=== PATIENT | male | born 1935 | race Caucasian/White ===

== ENCOUNTER → 2018-06-28 08:38 | Outpatient (CLI) | payer MEDICARE, SELFPAY ==
[2018-06-28 10:15] LABS: Alanine Aminotransferase 34 IU/L (21-72); Albumin 4.1 g/dL (3.5-5.0); Albumin Globulin Ratio 1.1 (1.0-2.8); Alkaline Phosphatase 99 U/L (38-126); Aspartate Aminotransferase 45 IU/L (17-59); BUN Creatinine Ratio 17.8 (6-22); Bilirubin Total 0.7 mg/dL (0.2-1.3); Blood Urea Nitrogen 16 mg/dL (9-20); Calcium 9.3 mg/dL (8.4-10.2); Carbon Dioxide 27 mmol/L (22-32); Chloride 98 mmol/L (98-107); Cholesterol 116 mg/dL (140-199); Estimated Glomerular Filt Rate > 60.0 mL/min (>60); Globulin 3.8 g/dL (1.7-4.1); Glucose 92 mg/dL (80-110); HDL Cholesterol 51 mg/dL (40-60); HEMOLYSIS < 15 (0-50); LDL Cholesterol Calculated 50 mg/dL (<100); Potassium 4.8 mmol/L (3.4-5.1); Sodium 136 mmol/L (137-145); Total Protein 7.9 g/dL (6.3-8.2); Triglycerides 75 mg/dL (35-150)
== END ==
PROVIDERS: PCP Nurse Practitioner; Visit Provider Nurse Practitioner
DX: I25.119 Atherosclerotic heart disease of native coronary artery with unspecified angina pectoris (principal); I25.5 Ischemic cardiomyopathy; E78.5 Hyperlipidemia, unspecified
CPT/HCPCS: 36415; 80053; 80061

== ENCOUNTER → 2018-07-02 07:51 | Outpatient (CLI) | payer MEDICARE, SELFPAY ==
--- NOTE | 2018-07-02 | DI.ECHO.S_ITS ---
[facility]---------+ [facility] +---------+ : : 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 -The ejection fraction is estimated to be 35-40%. -The right ventricle grossly appears normal in size with probable normal systolic function. -Pulmonary artery pressures cannot be estimated because of the lack of a measurable TR jet velocity but the IVC suggests a CVP of around 3 mmHg. 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 Procedure: A two-dimensional transthoracic echocardiogram with color flow and Doppler was performed. The study quality was technically adequate. Comparison is made with the echocardiogram of 2-28-14. The patient was in normal sinus rhythm during the exam. Left Ventricle: The left ventricle is normal in size. There is normal left ventricular wall thickness. The ejection fraction is estimated to be 35-40%. There is mid anteroseptal wall hypokinesis. There is apical septal wall akinesis. There is apical akinesis. There is basal inferior wall akinesis. There is mid anterior wall severe hypokinesis. There is apical anterior wall severe hypokinesis. Diastolic parameters suggest a relaxation abnormality of the left ventricle, consistent with probable normal filling pressures. Right Ventricle: The right ventricle grossly appears normal in size with probable normal systolic function. There is a pacemaker lead in the right ventricle. Atria: The left atrium is borderline dilated. Right atrial size is normal. There is a catheter/pacemaker lead seen in the right atrium. There is no Doppler evidence for an interatrial shunt. Mitral Valve: The mitral valve is grossly normal. There is mild mitral regurgitation. Aortic Valve: The aortic valve opens well. The aortic valve is trileaflet. There is discrete nodular thickening of the non- coronary cusp. There is no aortic valve stenosis. No aortic regurgitation is present. Tricuspid Valve: The tricuspid valve is normal in structure and function. There is a trace or physiologic amount of tricuspid regurgitation. Pulmonary artery pressures cannot be estimated because of the lack of a measurable TR jet velocity but the IVC suggests a CVP of around 3 mmHg. Pulmonic Valve: The pulmonic valve is not well seen, but is grossly normal. There is no pulmonic valvular regurgitation. Great Vessels: The aortic root is normal size. The ascending aorta is at the upper limits of normal in size. The aortic arch is normal in size. The IVC is of normal diameter and collapses greater than 50% with a sniff. This suggests a low right atrial pressure of 3 mm Hg. Pericardium/ Pleura There is no pericardial effusion. There is no pleural effusion. MMode/2D Measurements & Calculations LVIDd: 4.8 cm Ao root diam: 3.0 cm LVIDs: 4.4 cm Aortic Jxn: 2.4 cm FS: 7.9 % asc Aorta Diam: 3.5 cm IVSd: 0.73 cm Ao Arch Diam (Prox Trans): 2.7 cm LVPWd: 0.61 cm LV reed. diameter/BSA (cm/m^2): 2.5 LV sys. diameter/BSA (cm/m^2): 2.3 LA dimension: 3.7 cm RA long axis: 4.3 cm LA A2 area: 22.4 cm2 RA area: 17.1 cm2 LA A4 area: 22.1 cm2 RA vol: 57.0 ml LA length (vol): 5.6 cm RA : 29.7 ml/m2 LA vol: 75.4 ml IVC diam: 1.8 cm LA vol index: 39.3 ml/m2 RVDd major: 5.9 cm RVD1 (basal): 3.4 cm RVD2 (mid): 3.0 cm Doppler Measurements & Calculations Ao V2 max: 152.2 cm/sec MV E max pablo: 70.6 cm/sec Ao V2 mean: 98.0 cm/sec MV A max pablo: 99.7 cm/sec Ao max P.3 mmHg MV E/A: 0.71 Ao mean P.5 mmHg Med Peak E' Pablo: 6.6 cm/sec Ao V2 VTI: 32.1 cm E/E' med: 10.6 Lat Peak E' Pablo: 6.8 cm/sec E/E' lat: 10.3 E/e' average: 10.5 MV dec time: 0.20 sec MV P1/2t: 56.5 msec TR max pablo: 246.5 cm/sec MV P1/2t max pablo: 69.3 cm/sec TR max P.3 mmHg MVA(P1/2t): 3.9 cm2 PA V2 max: 95.6 cm/sec PA V2 mean: 54.5 cm/sec PA mean P.5 mmHg PA Accel Time: 0.08 sec Electronically signed by: Blas Stephenson M.D. on Reading Physician:07/02/2018 09:26 PM
== END ==
PROVIDERS: PCP Nurse Practitioner; Visit Provider Nurse Practitioner
DX: I34.0 Nonrheumatic mitral (valve) insufficiency (principal); I25.5 Ischemic cardiomyopathy; I50.9 Heart failure, unspecified; Z95.0 Presence of cardiac pacemaker
CPT/HCPCS: 93306

== ENCOUNTER → 2018-07-30 07:43 | Outpatient (CLI) | payer MEDICARE, SELFPAY ==
--- NOTE | 2018-07-30 | DI.NM.S_ITS ---
PROCEDURE: NM TYE PERF SPECT REST & STR Rest and exercise myocardial perfusion SPECT with gated imaging and ejection fraction RADIOPHARMACEUTICAL: 25.4 mCi Tc-99m sestamibi IV at rest and 26.2 mCi Tc-99m sestamibi IV at peak exercise. A 0-aht-yvdebtze was performed. INDICATIONS: DYSPENA ON EXERTION TECHNIQUE: Radiopharmaceutical was injected at peak stress test, and also at rest. SPECT images were obtained. SPECT myocardial perfusion images were displayed in short axis, horizontal long axis, and vertical long axis views. Gated images were reviewed using Mochila software. COMPARISON: None. CARDIAC STRESS: A standard Marshal treadmill exercise tolerance test was performed by the patient under the supervision of an attending staff. The patient exercised for 5 minutes and 39seconds; functional aerobic impairment (GINA) is 0 %. Hemodynamic data: There is blunted blood pressure and normal heart rate response to exercise stress. Patient achieved 93% of maximum predicted heart rate at peak exercise. Symptoms: Patient denied chest pain during exercise. EKG: No diagnostic EKG changes of ischemia; PACs and PVCs were reported. FINDINGS: Raw data: There is good myocardial labeling by radiotracer. No significant motion artifacts. Rggv-gw-psuis ratio is 0.5 (normal is less than 0.38 for sestamibi tracer, and less than 0.50 for thallium tracer). Left ventricle function: Gated images demonstrate akinesis of the mid to apical wall. No transient ischemic dilation; TID is 0.9 (normal less than 1.3). The left ventricle resting end-diastolic volume is 202 mL. Left ventricle stress ejection fraction is 47% ; normal values are above 45%. Myocardial perfusion: There is a large, severe fixed defect from the mid to apical anterior wall, also involving the entire apex and inferoapical wall, both at rest and with stress, consistent with prior infarct in a large, wrap-around LAD territory. There is a questionable, small, moderate basal lateral wall defect which is seen on both rest and stress images but the severity as well as reversibility can not be determined given there is a large bowel loop just next to the defect. The defect itself might be due to the adjacent bowel activity. IMPRESSION: 1)Abnormal perfusion study with a large scar in LAD territory with mild izabella-infarct ischemia, unchanged from the prior study on 07/01/2014. 2)Questionable defect in basal lateral wall which can not be further evaluated due to adjacent bowel loop interfering activity. 3)Average exercise tolerance with blunted blood pressure response. The activity tolerance has decreased compared to 4 years ago. 4)Dilated left ventricle with rest end-diastolic volume of 202 ml which has increased compared to 154 ml on last study. Mildly reduced LVEF of 47% which is not significantly changed from last study. Dictated by: Blas Stephenson M.D. on 07/31/2018 at 14:07 Approved by: Blas Stephenson M.D. on 07/31/2018 at 14:40
--- NOTE | 2018-07-30 09:36 | PM.TREADMILL ---
Cardiac Stress Test Report Referral & Results Date Patient Seen: 07/30/18 Requesting provider: Roney Slaughter Indication: Cardiomyopathy, pacemaker Procedure Note: Today following both written and verbal informed consent the patient was exercised according to a standard Marshal protocol patient went for a total of 5 minutes 39 seconds achieving a maximum heart rate of 129 maximum systolic blood pressure of 145. This is approximately 7.0 METS. Exercise was terminated at this point because of targets were met. Patient was also given Cardiolite through a previously started Hep-Lock IV by the nuclear medicine officer approximately 1 minute prior to the cessation of exercise. Patient had a blunted blood pressure response but normal heart rate response. Occasional PAC and PVCs were identified. patient with significant interventricular conduction delay. No ST-T segment changes identified Functional aerobic impairment rated 0 on the active scale Impression: No evidence of ischemia by ECG criteria Please see perfusion imaging report as well Please note: Actual ECG tracings can be found in the PACS system.
== END ==
PROVIDERS: PCP Nurse Practitioner; Visit Provider Nurse Practitioner
DX: R06.00 Dyspnea, unspecified (principal); R94.39 Abnormal result of other cardiovascular function study; I42.9 Cardiomyopathy, unspecified; Z95.0 Presence of cardiac pacemaker
CPT/HCPCS: 78452; 93016; 93017; 93018; A9502

== ENCOUNTER → 2018-09-11 15:04 | Outpatient (CLI) | payer MEDICARE, SELFPAY ==
[2018-09-11 16:41] LABS: Alanine Aminotransferase 37 IU/L (21-72); Albumin 4.3 g/dL (3.5-5.0); Albumin Globulin Ratio 1.2 (1.0-2.8); Alkaline Phosphatase 91 U/L (38-126); Aspartate Aminotransferase 48 IU/L (17-59); Bilirubin Total 0.4 mg/dL (0.2-1.3); Blood Urea Nitrogen 28 mg/dL (9-20); Calcium 9.3 mg/dL (8.4-10.2); Carbon Dioxide 25 mmol/L (22-32); Chloride 101 mmol/L (98-107); Cholesterol 103 mg/dL (140-199); Estimated Glomerular Filt Rate > 60.0 mL/min (>60); Globulin 3.7 g/dL (1.7-4.1); Glucose 95 mg/dL (80-110); HDL Cholesterol 50 mg/dL (40-60); HEMOLYSIS < 15 (0-50); LDL Cholesterol Calculated 38 mg/dL (<100); Magnesium 2.2 mg/dL (1.6-2.3); Potassium 4.5 mmol/L (3.4-5.1); Sodium 138 mmol/L (137-145); Triglycerides 74 mg/dL (35-150)
[2018-09-11 17:13] LABS: Thyroid Stimulating Hormone 1.79 uIU/mL (0.47-4.68)
== END ==
PROVIDERS: PCP Nurse Practitioner; Visit Provider Internal Medicine Cardiovascular Disease
DX: R06.02 Shortness of breath (principal); I25.5 Ischemic cardiomyopathy; E78.5 Hyperlipidemia, unspecified; I47.1 Supraventricular tachycardia
CPT/HCPCS: 36415; 80053; 80061; 83735; 84443

== ENCOUNTER → 2018-09-18 09:01 | Outpatient (CLI) | payer MEDICARE, SELFPAY ==
--- NOTE | 2018-09-18 | DI.US.S_ITS ---
PROCEDURE: US ABD AORTA ANEURYSM SCREEN INDICATIONS: HISTORY SMOKING TECHNIQUE: Real time scanning was performed of the aorta and iliac arteries, with image documentation. COMPARISON: None. FINDINGS: Aorta: Proximal aorta are obscured by shadowing bowel gas. Mid-aorta measures 2.0 cm. Distal aortic diameter is 2.0 cm. Iliac arteries: Right common iliac artery measures 1.0 cm. Left common iliac artery measures 1.1 cm. IMPRESSION: Proximal abdominal aorta obscured by shadowing bowel gas. Elsewhere, no aneurysm identified. Dictated by: Kenroy Castillo M.D. on 09/18/2018 at 9:30 Approved by: Kenroy Castillo M.D. on 09/18/2018 at 9:32
== END ==
PROVIDERS: PCP Nurse Practitioner; Visit Provider Internal Medicine Cardiovascular Disease
DX: I71.4 Abdominal aortic aneurysm, without rupture (principal); Z87.891 Personal history of nicotine dependence
CPT/HCPCS: 76706

== ENCOUNTER → 2018-09-21 16:58 | Outpatient (CLI) | payer MEDICARE, SELFPAY ==
--- NOTE | 2018-09-26 08:01 | PM.PFT.1 ---
Pulmonary Function Test Referral & Results Date Patient Seen: 09/21/18 Requesting provider: Elsa Park Results: The spirometry demonstrates an FVC of 3.39 L which is 70% of predicted. The FEV1 was measured at 1.84 L which is 60% of predicted. The FEV1/FVC ratio was 50 for which is 76% of predicted. Following the administration of bronchodilator there was a 10% improvement in FEV1 and a 41% improvement in FEF 25-75%. Lung volumes show an SVC of 3.93 L which is 84% of predicted. The diffusing capacity was measured at 15.40 which is 43% of predicted. No hemoglobin value was provided, so no correction for potential anemia could be made, if appropriate. The maximum voluntary ventilation was reduced Interpretation: This study demonstrates moderate obstructive lung disease based on reduction FEV1 and FEV1/FVC ratio. There is some evidence of limited benefit following bronchodilator administration based on 10% improvement in FEV1 and 40+% improvement in small airway flow based on improvement in FEF 25-75% There may also be mild restrictive lung disease present based on slight reduction in lung volumes There is a more significant reduction in diffusing capacity (unless patient is anemic) suggesting more significant disease at the capillary alveolar level
== END ==
PROVIDERS: PCP Nurse Practitioner; Visit Provider Internal Medicine Cardiovascular Disease
DX: R06.02 Shortness of breath (principal)
CPT/HCPCS: 94060; 94726; 94729

== ENCOUNTER → 2019-09-27 09:45 | Outpatient (CLI) | payer MEDICARE, SELFPAY ==
[2019-09-27 11:53] LABS: Alanine Aminotransferase 16 IU/L (<50); Alkaline Phosphatase 110 U/L (38-126); Aspartate Aminotransferase 45 IU/L (17-59); BUN Creatinine Ratio 21.7 (6-22); Bilirubin Total 0.8 mg/dL (0.2-1.3); Blood Urea Nitrogen 18 mg/dL (9-20); Calcium 9.1 mg/dL (8.4-10.2); Carbon Dioxide 27 mmol/L (22-32); Chloride 102 mmol/L (98-107); Cholesterol 95 mg/dL (140-199); Estimated Glomerular Filt Rate > 60.0 mL/min (>60); Glucose 96 mg/dL (80-110); HDL Cholesterol 38 mg/dL (40-60); HEMOLYSIS < 15 (0-50); LDL Cholesterol Calculated 46 mg/dL (<100); Magnesium 2.2 mg/dL (1.6-2.3); Potassium 4.7 mmol/L (3.4-5.1); Sodium 137 mmol/L (137-145); Triglycerides 53 mg/dL (35-150)
[2019-09-27 12:23] LABS: Thyroid Stimulating Hormone 1.69 uIU/mL (0.47-4.68)
== END ==
PROVIDERS: PCP Nurse Practitioner; Referring Provider Internal Medicine Cardiovascular Disease; Visit Provider Internal Medicine Cardiovascular Disease
DX: I47.2 Ventricular tachycardia (principal); I25.5 Ischemic cardiomyopathy; Z95.5 Presence of coronary angioplasty implant and graft; I44.2 Atrioventricular block, complete; I48.0 Paroxysmal atrial fibrillation
CPT/HCPCS: 80053; 80061; 83735; 84443

== ENCOUNTER → 2020-08-25 16:08 | Outpatient (CLI) | payer MEDICARE, SELFPAY ==
[2020-08-25 19:54] LABS: Appearance Urine UA CLEAR; Bilirubin Urine UA NEGATIVE (NEGATIVE); Color Urine UA ORANGE; Glucose Urine UA NEGATIVE (Negative); Ketones Urine UA NEGATIVE (NEGATIVE); Leukocyte Esterase Urine UA 3+ (NEGATIVE); Nitrite Urine UA POSITIVE (Negative); Occult Blood Urine UA 1+ (Negative); Protein Urine UA NEGATIVE (Negative); Specific Gravity Urine UA 1.025 (1.000-1.035); Urobilinogen Urine UA 0.2 E.U./dL (0.2); pH Urine UA 5.5 (4.5-8.0)
[2020-08-25 20:18] LABS: Bacteria Urine Many (>30); Culture Indicated Urine Specimen Cultured; RBC Urine 10-30/HPF (0-5/HPF); WBC Urine 30-100/HPF (0-5/HPF)
== END ==
PROVIDERS: PCP Family Medicine; Visit Provider Family Medicine
DX: R31.9 Hematuria, unspecified (principal)
CPT/HCPCS: 81001; 87077; 87086; 87186

== ENCOUNTER → 2020-11-11 18:00 | Outpatient (CLI) | payer MEDICARE, SELFPAY | PROVIDERS: PCP Family Medicine; Referring Provider Physician Assistant; Visit Provider Physician Assistant | DX: R82.90 Unspecified abnormal findings in urine (principal) | CPT/HCPCS: 87077; 87086; 87186 ==

== ENCOUNTER → 2021-02-18 14:48 | Outpatient (CLI) | payer MEDICARE, SELFPAY | PROVIDERS: PCP Family Medicine; Visit Provider Nurse Practitioner | DX: R30.9 Painful micturition, unspecified (principal) | CPT/HCPCS: 87086 ==

== ENCOUNTER → 2021-04-05 16:26 | Outpatient (CLI) | payer MEDICARE, SELFPAY ==
--- NOTE | 2021-04-05 16:29 | DI.RAD.S_ITS ---
PROCEDURE: XR CHEST 2V INDICATIONS: chronic cough in a smoker TECHNIQUE: 2 views of the chest were acquired. COMPARISON: [facility], CR, XR CHEST 1 VIEW, 03/11/2019, 12:51. [facility], CR, XR CHEST 2 VIEWS, 03/12/2019, 7:14. FINDINGS: Surgical changes and devices: Stable positioning of left cardiac pacer. Lungs and pleura: Chronic interstitial opacities are present with basilar predominance similar to prior examination. No new focal lung consolidation.. No pleural effusions or pneumothorax. Mediastinum: Mediastinal contours are normal. Heart size is normal. Large non reducible hiatal hernia. Bones and chest wall: No suspicious bony abnormalities. Soft tissues appear unremarkable. IMPRESSION: 1. Diffuse bilateral interstitial opacities with basilar predominance similar prior examination suggesting interstitial fibrosis. Correlate clinically. Dictated by: Kip Singh RRA Interpreted: Tip Gautam MD on 04/05/2021 at 16:58 Transcribed by: HUYEN on 04/05/2021 at 16:59 Approved by: Tip Gautam M.D. on 04/05/2021 at 17:01
[2021-04-05 17:25] LABS: Appearance Urine UA CLEAR; Bilirubin Urine UA NEGATIVE (NEGATIVE); Color Urine UA YELLOW; Glucose Urine UA TRACE g/dL (Negative); Ketones Urine UA NEGATIVE (NEGATIVE); Leukocyte Esterase Urine UA TRACE (NEGATIVE); Nitrite Urine UA NEGATIVE (Negative); Occult Blood Urine UA NEGATIVE (Negative); Protein Urine UA TRACE (Negative); Urobilinogen Urine UA 0.2 E.U./dL (0.2); pH Urine UA 6.5 (4.5-8.0)
[2021-04-05 17:40] LABS: Add Manual Diff / Slide Review NO; Basophils Absolute Auto 100 /uL (0-100); Eosinophils Absolute Auto 900 /uL (0-450); Eosinophils Percent Auto 9.9 % (2-4); Hematocrit 44.4 % (41-53); Hemoglobin 15.2 g/dL (13.5-17.5); Lymphocytes Absolute Auto 1600 /uL (1100-4500); Lymphocytes Percent Auto 17.9 % (25-40); Mean Corpuscular HGB Conc 34.4 % (30-36); Mean Corpuscular Hemoglobin 33.3 PG (26-34); Mean Corpuscular Volume 97.1 fL (80-100); Monocytes Absolute Auto 600 /uL (0-900); Monocytes Percent Auto 6.8 % (3-14); Neutrophils Absolute Auto 5800 /uL (1500-7000); Neutrophils Percent Auto 64.4 % (50-75); Platelet Count 278 X10^3/uL (150-400); Red Blood Cell Count 4.57 X10^6/uL (4.5-5.9); Red Cell Distribution Width 13.5 % (11.6-14.8); White Blood Cell Count 9.1 X10^3/uL (4.5-11.0)
[2021-04-05 17:52] LABS: Hemoglobin A1C% w Est Avg Glu 5.6 % (4.0-6.0)
[2021-04-05 17:56] LABS: Alanine Aminotransferase 22 IU/L (<50); Alkaline Phosphatase 95 U/L (38-126); Aspartate Aminotransferase 46 IU/L (17-59); BUN Creatinine Ratio 19.6 (6-22); Bilirubin Total 0.3 mg/dL (0.2-1.3); Blood Urea Nitrogen 19 mg/dL (9-20); Calcium 9.4 mg/dL (8.4-10.2); Carbon Dioxide 28 mmol/L (22-32); Chloride 98 mmol/L (98-107); Cholesterol 96 mg/dL (140-199); Estimated Glomerular Filt Rate > 60.0 mL/min (>60); Globulin 4.2 g/dL (1.7-4.1); Glucose 103 mg/dL (80-110); HDL Cholesterol 46 mg/dL (40-60); HEMOLYSIS < 15 (0-50); LDL Cholesterol Calculated 37 mg/dL (<100); Potassium 5.3 mmol/L (3.4-5.1); Sodium 134 mmol/L (137-145); Total Protein 8.2 g/dL (6.3-8.2); Triglycerides 63 mg/dL (35-150)
[2021-04-05 18:11] LABS: Bacteria Urine Occasional (0-1); Culture Indicated Urine Specimen Cultured; RBC Urine 0-1/HPF (0-5/HPF); WBC Urine 1-5/HPF (0-5/HPF)
== END ==
PROVIDERS: PCP Family Medicine; Referring Provider Family Medicine; Visit Provider Family Medicine
DX: Z72.0 Tobacco use (principal); R73.9 Hyperglycemia, unspecified; I10 Essential (primary) hypertension; Z12.5 Encounter for screening for malignant neoplasm of prostate; E78.2 Mixed hyperlipidemia; M10.9 Gout, unspecified
CPT/HCPCS: 36415; 71046; 80053; 80061; 81001; 83036; 84550; 85025; 87086; G0103

== ENCOUNTER 2021-05-07 16:06 | Inpatient (IN) | payer OTHER, SELFPAY ==
--- NOTE | 2021-05-07 16:14 | DI.RAD.S_ITS ---
PROCEDURE: XR HIP W PEL IF DONE LT 2V INDICATIONS: glf TECHNIQUE: AP pelvis with lateral view(s) of the left hip(s). COMPARISON: None. FINDINGS: Bones: [id number] displaced intertrochanteric fracture of the left femur. The remaining visualized osseous structures appear maintained Soft tissues: Edema about the fracture site. IMPRESSION: [id number] displaced intertrochanteric fracture of the left femur. Dictated by: David Garza M.D. on 05/07/2021 at 17:07 Approved by: David Garza M.D. on 05/07/2021 at 17:08
[2021-05-07 16:21] VITALS: BP 115/56; PULSE 76; RESP 18; TEMP 36.4; O2SAT 99; BMI 20.7
[2021-05-07 17:48] VITALS: BP 101/64; PULSE 71; O2SAT 96
--- NOTE | 2021-05-07 18:00 | DI.RAD.S_ITS ---
PROCEDURE: XR FEMUR LT MIN 2V INDICATIONS: Pain TECHNIQUE: AP and lateral views of the femur were acquired. COMPARISON: [facility], CR, XR HIP W PEL IF DONE LT 2V, 05/07/2021, 16:25. FINDINGS: Bones: Comminuted trochanteric fracture of the left hip. No dislocation. No other fractures or dislocations. No suspicious bony lesions. Soft tissues: No suspicious soft tissue calcifications or masses. IMPRESSION: Comminuted trochanteric fracture of the left hip. Dictated by: eKdar Jarrett M.D. on 05/07/2021 at 19:39 Approved by: Kedar Jarrett M.D. on 05/07/2021 at 19:39
--- NOTE | 2021-05-07 18:24 | ED.FALL ---
HPI - Fall <Umer Ricketts PA-C - Last Filed: 05/15/21 12:14> General Chief Complaint: Fall Stated Complaint: GLF Lt. hip pain Time Seen by Provider: 05/07/21 16:48 Source: patient and EMS Mode of arrival: EMS History of Present Illness HPI Narrative: Patient is an 85-year-old male presenting to the emergency department the EMS today for an evaluation of left hip pain following a fall. Patient states that he tripped over a wire causing him to fall, denying hitting his head or losing consciousness as a result of the fall. He states he began to experience immediate left hip pain that is worsened with movement. No fever, chills, chest pain, cough, shortness of breath, nausea, vomiting, diarrhea, dysuria, hematuria, or any other concerning symptoms reported. No further concerns are voiced at this time. Discussed case with patient's son, All, who states that the patient does not have a power of estate planning attorney. Patient makes his own medical decisions. Patient's son can be reached at or . Related Data Home Medications Medication Instructions Recorded Confirmed carvedilol 3.125 mg tablet 3.125 mg PO BID 12/02/20 05/07/21 Previous Rx's Medication Instructions Recorded atorvastatin 40 mg tablet 40 mg PO BEDTIME #90 tab 04/05/21 clopidogrel 75 mg tablet 75 mg PO DAILY #90 tab 04/05/21 finasteride 5 mg tablet 5 mg PO DAILY #90 tab 04/05/21 nitroglycerin 0.4 mg sublingual 0.4 mg SUBLINGUAL PRN PRN #2 bot 04/05/21 tablet (Nitrostat) tamsulosin 0.4 mg capsule 0.4 mg PO BEDTIME #90 cap 04/05/21 acetaminophen 325 mg tablet 650 mg PO Q6HR PRN #60 tab 05/10/21 calcium carbonate 600 mg calcium 600 mg PO BID #60 tab 05/10/21 (1,500 mg) tablet (Calcium) cholecalciferol (vitamin D3) 25 1,000 unit PO DAILY #30 tab 05/10/21 mcg (1,000 unit) tablet enoxaparin 40 mg/0.4 mL 40 mg (0.4 mL) SUBCUT DAILY 28 01/10/22 subcutaneous syringe (Lovenox) Days #28 dose nicotine 21 mg/24 hr daily 1 patch TRANSDERMAL DAILY #28 ea 05/10/21 transdermal patch sennosides 8.6 mg tablet (senna) 17.2 mg PO BEDTIME #60 tab 05/10/21 Allergies Allergy/AdvReac Type Severity Reaction Status Date / Time Penicillins Allergy Unknown Verified 05/08/21 10:43 Review of Systems <Umer Ricketts PA-C - Last Filed: 05/15/21 12:14> Constitutional Constitutional: Denies chills, Denies fatigue, Denies fever(s), Denies frequent falls, Denies lethargy and Denies weakness Eyes Eyes: Denies loss of vision ENT Ears, Nose, Mouth, and Throat: Denies dizziness and Denies neck pain Cardiovascular Cardiovascular: Denies chest pain, Denies irregular heart rhythm, Denies lightheadedness, Denies palpitations, Denies dyspnea, Denies dyspnea on exertion and Denies orthopnea Respiratory Respiratory: Denies cough, Denies dyspnea, Denies dyspnea on exertion and Denies wheezing Gastrointestinal Gastrointestinal: Denies abdominal pain, Denies change in bowel habits, Denies diarrhea, Denies nausea and Denies vomiting Genitourinary Genitourinary: Denies hematuria, Denies flank pain, Denies urinary incontinence and Denies urinary urgency Musculoskeletal Musculoskeletal: Denies back pain, Reports arthralgias (Left hip), Denies muscle weakness, Denies neck pain, Denies numbness and Denies tingling Integumentary/Breasts Skin/Breast: Denies pruritus, Denies erythema, Denies rash and Denies wounds Neurologic Neurologic: Denies behavioral changes, Denies confusion, Denies dizziness, Denies frequent falls, Denies loss of vision, Denies numbness, Denies tingling and Denies weakness Psychiatric Psychiatric: Denies behavioral changes and Denies confusion Endocrine Endocrine: Denies fatigue and Denies palpitations Allergic/Immunologic Allergic/Immunologic: Denies wheezing Patient History <Umer Ricketts PA-C - Last Filed: 05/15/21 12:14> Medical History 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 Well-developed patient, in mild distress. Appears confused and does not answer questions directly. HEAD: Atraumatic. Normocephalic. EYES: Pupils equal round and reactive. Extraocular motions intact. No scleral icterus. No injection or drainage. ENT: Nose without bleeding, purulent drainage. Throat without erythema, tonsillar hypertrophy or exudate. Airway patent. NECK: Trachea midline. Non tender CARDIOVASCULAR: Regular rate and rhythm without murmurs, gallops, or rubs. RESPIRATORY: Clear to auscultation. Breath sounds equal bilaterally. No wheezes, rales, or rhonchi. GASTROINTESTINAL: Abdomen soft, non-tender, nondistended. EXTREMITIES: No edema. Left hip in external rotation of rest. No significant tenderness noted to palpation over the left femur and hip. BACK: Nontender without deformity or crepitance. No flank tenderness. NEURO: AOx3. SKIN: No rash or erythema of visible areas Initial Vital Signs Initial Vital Signs: Vital Signs Temperature 97.6 F 05/07/21 16:21 Pulse Rate 76 05/07/21 16:21 Respiratory Rate 18 05/07/21 16:21 Blood Pressure 115/56 L 05/07/21 16:21 Pulse Oximetry 99 05/07/21 16:21 <Kae Teixeira DO - Last Filed: 05/18/21 00:43> Initial Vital Signs Initial Vital Signs: Vital Signs Temperature 97.6 F 05/07/21 16:21 Pulse Rate 76 05/07/21 16:21 Respiratory Rate 18 05/07/21 16:21 Blood Pressure 115/56 L 05/07/21 16:21 Pulse Oximetry 99 05/07/21 16:21 Course <JESSICA Mayer Last Filed: 05/15/21 12:14> Course Course Narrative: CBC, CMP, PT/INR, PTT, left hip x-rays, left femur x-rays obtained. Orders Ordered: Discontinued Medications Acetaminophen (Acetaminophen 325 Mg Tablet) 650 mg PO Q6HR PRN PRN Reason: Fever/Mild Pain (1-3) Last Admin: 05/11/21 09:57 Dose: 650 mg Documented by: Admin: 05/10/21 10:49 Dose: 650 mg Documented by: Admin: 05/09/21 22:14 Dose: 650 mg Documented by: Admin: 05/09/21 13:55 Dose: 650 mg Documented by: Admin: 05/09/21 07:05 Dose: 650 mg Documented by: STACEY Albuterol (Albuterol 2.5 Mg/3 Ml Neb (Adult)) 2.5 mg INH [id number] PRN PRN Reason: Shortness Of Breath Or Wheezing Atorvastatin Calcium (Atorvastatin 20 Mg Tablet) 40 mg PO BEDTIME [facility] Last Admin: 05/10/21 21:14 Dose: Not Given Documented by: Admin: 05/09/21 20:55 Dose: 40 mg Documented by: Admin: 05/08/21 21:43 Dose: 40 mg Documented by: STACEY Calcium Carbonate (Calcium Carbonate 600 Mg Tablet) 600 mg PO BID [facility] Last Admin: 05/11/21 09:45 Dose: 600 mg Documented by: Admin: 05/10/21 21:14 Dose: Not Given Documented by: Admin: 05/10/21 10:43 Dose: 600 mg Documented by: SARAH Carvedilol (Carvedilol 3.125 Mg Tablet) 3.125 mg PO BID [facility] Last Admin: 05/11/21 09:46 Dose: 3.125 mg Documented by: Admin: 05/10/21 21:06 Dose: Not Given Documented by: Admin: 05/10/21 10:36 Dose: Not Given Documented by: Admin: 05/09/21 20:55 Dose: 3.125 mg Documented by: Admin: 05/09/21 14:19 Dose: Not Given Documented by: Admin: 05/08/21 21:45 Dose: Not Given Documented by: STACEY Cefazolin Sodium/Dextrose (Cefazolin 2 Gm/20 Ml Syringe) 2 gm IV NOW ONE Stop: 05/08/21 10:01 Last Admin: 05/08/21 09:20 Dose: 2 gm Documented by: MAILE Cefazolin Sodium/Dextrose (Cefazolin 2 Gm/20 Ml Syringe) 2 gm IV INTRA-OP ONE Stop: 05/08/21 10:41 Last Admin: 05/08/21 12:25 Dose: Not Given Documented by: AGNES Cefazolin Sodium/Dextrose (Cefazolin 2 Gm/20 Ml Syringe) 2 gm IV Q8H [facility] Stop: 05/09/21 01:01 Last Admin: 05/09/21 01:30 Dose: 2 gm Documented by: Admin: 05/08/21 18:00 Dose: 2 gm Documented by: HU Clopidogrel Bisulfate (Clopidogrel 75 Mg Tablet) 75 mg PO DAILY [facility] Last Admin: 05/11/21 09:46 Dose: 75 mg Documented by: Admin: 05/10/21 10:34 Dose: 75 mg Documented by: SARAH Bupivacaine HCl 30 ml/ (Epinephrine HCl 0.15 mg) 0 ml INJ NOW ONE Stop: 05/08/21 10:00 Last Admin: 05/08/21 09:59 Dose: 30 ml Documented by: CONCA Docusate Sodium (Docusate 100 Mg Capsule) 100 mg PO BID [facility] Last Admin: 05/11/21 09:45 Dose: 100 mg Documented by: Admin: 05/10/21 21:14 Dose: Not Given Documented by: Admin: 05/10/21 10:34 Dose: 100 mg Documented by: Admin: 05/09/21 20:56 Dose: 100 mg Documented by: Admin: 05/09/21 09:35 Dose: 100 mg Documented by: Admin: 05/08/21 21:43 Dose: 100 mg Documented by: STACEY Enoxaparin Sodium (Enoxaparin 40 Mg/0.4 Ml Syringe) 40 mg SUBCUT DAILY [facility] Last Admin: 05/11/21 09:45 Dose: 40 mg Documented by: Admin: 05/10/21 10:35 Dose: 40 mg Documented by: Admin: 05/09/21 09:35 Dose: 40 mg Documented by: AGNES Fentanyl (Fentanyl 100 Mcg/2 Ml Inj) 0 mcg IV Q5M PRN PRN Reason: Pain, Moderate (4-6) Finasteride (Finasteride 5 Mg Tablet) 5 mg PO DAILY [facility] Last Admin: 05/11/21 09:45 Dose: 5 mg Documented by: Admin: 05/10/21 10:34 Dose: 5 mg Documented by: Admin: 05/09/21 09:36 Dose: 5 mg Documented by: AGNES Hydromorphone HCl (Hydromorphone 0.5 Mg Inj) 0.5 mg IV Q6H PRN PRN Reason: Pain, Moderate (4-6) Last Admin: 05/07/21 23:17 Dose: 0.5 mg Documented by: STACEY Hydromorphone HCl (Hydromorphone 2 Mg Inj) 0 mg IV Q5MIN PRN PRN Reason: Pain, Mild (1-3) Hydromorphone HCl (Hydromorphone 0.5 Mg Inj) 0.2 mg IV Q1H PRN PRN Reason: Pain, Severe (7-10) Dextrose/Sodium Chloride (Dextrose 5%-0.9% Ns) 1,000 mls @ 60 mls/hr IV CONT [facility] Last Admin: 05/07/21 23:17 Dose: 60 mls/hr Documented by: STACEY Lactated Ringer's (Lactated Ringers) 1,000 mls @ 42 mls/hr IV CONT [facility] Last Infusion: 05/08/21 10:20 Dose: 0 mls/hr Documented by: Admin: 05/08/21 10:20 Dose: 42 mls/hr Documented by: Infusion: 05/08/21 10:20 Dose: 42 mls/hr Documented by: Admin: 05/08/21 09:00 Dose: 42 mls/hr Documented by: MAILE Tranexamic Acid 1,000 mg/ (Sodium Chloride) 100 mls @ 200 mls/hr IV NOW ONE Stop: 05/08/21 10:29 Last Infusion: 05/08/21 10:02 Dose: 0 mls/hr Documented by: Admin: 05/08/21 09:32 Dose: 200 mls/hr Documented by: AHSR Tranexamic Acid 1,000 mg/ (Sodium Chloride) 100 mls @ 200 mls/hr IV INTRA-OP ONE Stop: 05/08/21 11:09 Last Admin: 05/08/21 12:25 Dose: Not Given Documented by: AGNES Lactated Ringer's (Lactated Ringers) 1,000 mls @ 75 mls/hr IV CONT [facility] Last Admin: 05/09/21 01:29 Dose: 75 mls/hr Documented by: Infusion: 05/09/21 01:29 Dose: 75 mls/hr Documented by: Admin: 05/08/21 12:09 Dose: 75 mls/hr Documented by: HU Lisinopril (Lisinopril 5 Mg Tablet) 5 mg PO DAILY [facility] Last Admin: 05/11/21 09:46 Dose: Not Given Documented by: Admin: 05/10/21 10:37 Dose: Not Given Documented by: Admin: 05/09/21 14:19 Dose: Not Given Documented by: AGNES Naloxone HCl (Naloxone 0.4 Mg/Ml Vial) 0.2 mg IV Q2MIN PRN PRN Reason: Opiate Reversal Naloxone HCl (Naloxone 0.4 Mg/Ml Vial) 0.2 mg IV Q2MIN PRN PRN Reason: Opiate Reversal Nitroglycerin (Nitroglycerin 0.4 Mg Sl Tab) 0.4 mg SL PRN PRN PRN Reason: chest pain Ondansetron HCl (Ondansetron 4 Mg/2 Ml Inj) 4 mg IV Q8HR PRN PRN Reason: Nausea And Vomiting Ondansetron HCl (Ondansetron 4 Mg/2 Ml Inj) 4 mg IV NOW PRN PRN Reason: Nausea And Vomiting Ondansetron HCl (Ondansetron 4 Mg Odt) 4 mg PO Q4HR PRN PRN Reason: Nausea And Vomiting Ondansetron HCl (Ondansetron 4 Mg/2 Ml Inj) 4 mg IV Q4HR PRN PRN Reason: Nausea And Vomiting Oxycodone HCl (Oxycodone Ir 5 Mg Tablet) 5 mg PO Q3HR PRN PRN Reason: Pain, Moderate (4-6) Last Admin: 05/09/21 00:10 Dose: 5 mg Documented by: STACEY Oxycodone HCl (Oxycodone Ir 5 Mg Tablet) 2.5 mg PO Q3HR PRN PRN Reason: Pain, Moderate (4-6) Last Admin: 05/11/21 04:00 Dose: 2.5 mg Documented by: WILLIAM Oxycodone/Acetaminophen (Oxycodone/Acetaminophen 5/325 Tablet) 1 tab PO PACUNOW PRN PRN Reason: Mild or Moderate Pain Polyethylene Glycol (Polyethylene Glycol 3350 17 Gm Powd.Pack) 17 gm PO NOW ONE Stop: 05/11/21 08:14 Last Admin: 05/11/21 09:45 Dose: 17 gm Documented by: SARAH Sennosides (Sennosides 8.6 Mg Tablet) 17.2 mg PO BEDTIME [facility] Last Admin: 05/10/21 21:14 Dose: Not Given Documented by: Admin: 05/09/21 20:55 Dose: 17.2 mg Documented by: Admin: 05/08/21 21:43 Dose: 17.2 mg Documented by: STACEY Sodium Chloride (Sodium Chloride 0.9% Flush) 10 ml IV PRN PRN PRN Reason: Flush Sodium Chloride (Sodium Chloride 0.9% Flush) 10 ml IV BID [facility] Last Admin: 05/11/21 09:54 Dose: Not Given Documented by: Admin: 05/10/21 21:12 Dose: 10 ml Documented by: Admin: 05/10/21 10:37 Dose: 10 ml Documented by: SARAH Tamsulosin HCl (Tamsulosin 0.4 Mg Capsule) 0.4 mg PO BEDTIME [facility] Last Admin: 05/10/21 21:14 Dose: Not Given Documented by: Admin: 05/09/21 20:55 Dose: 0.4 mg Documented by: Admin: 05/08/21 21:43 Dose: 0.4 mg Documented by: STACEY Vitamin D (Cholecalciferol (Vitamin D3) 1,000 Unit Tablet) 1,000 unit PO DAILY [facility] Last Admin: 05/11/21 09:46 Dose: 1,000 unit Documented by: Admin: 05/10/21 10:35 Dose: 1,000 unit Documented by: SARAH Consultations Consultation #1: Consult with Dr. Soto (orthopedic surgery). Requests obtaining CBC, PT/INR, PTT or, and obtaining x-rays of the left femur. Plans to take patient to the operating room tomorrow morning pending results of lab work. Time: 18:00 Consultation #2: Consult with ANAI Motley (internal medicine). Accepts patient for observation. Requests that we obtain code status for patient. Time: 19:49 Vital Signs Vital signs: Vital Signs - 8 hr 05/07/21 16:21 05/07/21 17:48 Temperature 97.6 F Pulse Rate 76 71 Respiratory Rate 18 Blood Pressure 115/56 L 101/64 Pulse Oximetry 99 96 <Kae Teixeira DO - Last Filed: 05/18/21 00:43> Orders Ordered: Discontinued Medications Acetaminophen (Acetaminophen 325 Mg Tablet) 650 mg PO Q6HR PRN PRN Reason: Fever/Mild Pain (1-3) Last Admin: 05/11/21 09:57 Dose: 650 mg Documented by: Admin: 05/10/21 10:49 Dose: 650 mg Documented by: Admin: 05/09/21 22:14 Dose: 650 mg Documented by: Admin: 05/09/21 13:55 Dose: 650 mg Documented by: Admin: 05/09/21 07:05 Dose: 650 mg Documented by: STACEY Albuterol (Albuterol 2.5 Mg/3 Ml Neb (Adult)) 2.5 mg INH [id number] PRN PRN Reason: Shortness Of Breath Or Wheezing Atorvastatin Calcium (Atorvastatin 20 Mg Tablet) 40 mg PO BEDTIME [facility] Last Admin: 05/10/21 21:14 Dose: Not Given Documented by: Admin: 05/09/21 20:55 Dose: 40 mg Documented by: Admin: 05/08/21 21:43 Dose: 40 mg Documented by: STACEY Calcium Carbonate (Calcium Carbonate 600 Mg Tablet) 600 mg PO BID [facility] Last Admin: 05/11/21 09:45 Dose: 600 mg Documented by: Admin: 05/10/21 21:14 Dose: Not Given Documented by: Admin: 05/10/21 10:43 Dose: 600 mg Documented by: SARAH Carvedilol (Carvedilol 3.125 Mg Tablet) 3.125 mg PO BID [facility] Last Admin: 05/11/21 09:46 Dose: 3.125 mg Documented by: Admin: 05/10/21 21:06 Dose: Not Given Documented by: Admin: 05/10/21 10:36 Dose: Not Given Documented by: Admin: 05/09/21 20:55 Dose: 3.125 mg Documented by: Admin: 05/09/21 14:19 Dose: Not Given Documented by: Admin: 05/08/21 21:45 Dose: Not Given Documented by: STACEY Cefazolin Sodium/Dextrose (Cefazolin 2 Gm/20 Ml Syringe) 2 gm IV NOW ONE Stop: 05/08/21 10:01 Last Admin: 05/08/21 09:20 Dose: 2 gm Documented by: MAILE Cefazolin Sodium/Dextrose (Cefazolin 2 Gm/20 Ml Syringe) 2 gm IV INTRA-OP ONE Stop: 05/08/21 10:41 Last Admin: 05/08/21 12:25 Dose: Not Given Documented by: AGNES Cefazolin Sodium/Dextrose (Cefazolin 2 Gm/20 Ml Syringe) 2 gm IV Q8H [facility] Stop: 05/09/21 01:01 Last Admin: 05/09/21 01:30 Dose: 2 gm Documented by: Admin: 05/08/21 18:00 Dose: 2 gm Documented by: HU Clopidogrel Bisulfate (Clopidogrel 75 Mg Tablet) 75 mg PO DAILY [facility] Last Admin: 05/11/21 09:46 Dose: 75 mg Documented by: Admin: 05/10/21 10:34 Dose: 75 mg Documented by: SARAH Bupivacaine HCl 30 ml/ (Epinephrine HCl 0.15 mg) 0 ml INJ NOW ONE Stop: 05/08/21 10:00 Last Admin: 05/08/21 09:59 Dose: 30 ml Documented by: CONCA Docusate Sodium (Docusate 100 Mg Capsule) 100 mg PO BID [facility] Last Admin: 05/11/21 09:45 Dose: 100 mg Documented by: Admin: 05/10/21 21:14 Dose: Not Given Documented by: Admin: 05/10/21 10:34 Dose: 100 mg Documented by: Admin: 05/09/21 20:56 Dose: 100 mg Documented by: Admin: 05/09/21 09:35 Dose: 100 mg Documented by: Admin: 05/08/21 21:43 Dose: 100 mg Documented by: STACEY Enoxaparin Sodium (Enoxaparin 40 Mg/0.4 Ml Syringe) 40 mg SUBCUT DAILY [facility] Last Admin: 05/11/21 09:45 Dose: 40 mg Documented by: Admin: 05/10/21 10:35 Dose: 40 mg Documented by: Admin: 05/09/21 09:35 Dose: 40 mg Documented by: AGNES Fentanyl (Fentanyl 100 Mcg/2 Ml Inj) 0 mcg IV Q5M PRN PRN Reason: Pain, Moderate (4-6) Finasteride (Finasteride 5 Mg Tablet) 5 mg PO DAILY [facility] Last Admin: 05/11/21 09:45 Dose: 5 mg Documented by: Admin: 05/10/21 10:34 Dose: 5 mg Documented by: Admin: 05/09/21 09:36 Dose: 5 mg Documented by: AGNES Hydromorphone HCl (Hydromorphone 0.5 Mg Inj) 0.5 mg IV Q6H PRN PRN Reason: Pain, Moderate (4-6) Last Admin: 05/07/21 23:17 Dose: 0.5 mg Documented by: STACEY Hydromorphone HCl (Hydromorphone 2 Mg Inj) 0 mg IV Q5MIN PRN PRN Reason: Pain, Mild (1-3) Hydromorphone HCl (Hydromorphone 0.5 Mg Inj) 0.2 mg IV Q1H PRN PRN Reason: Pain, Severe (7-10) Dextrose/Sodium Chloride (Dextrose 5%-0.9% Ns) 1,000 mls @ 60 mls/hr IV CONT [facility] Last Admin: 05/07/21 23:17 Dose: 60 mls/hr Documented by: STACEY Lactated Ringer's (Lactated Ringers) 1,000 mls @ 42 mls/hr IV CONT [facility] Last Infusion: 05/08/21 10:20 Dose: 0 mls/hr Documented by: Admin: 05/08/21 10:20 Dose: 42 mls/hr Documented by: Infusion: 05/08/21 10:20 Dose: 42 mls/hr Documented by: Admin: 05/08/21 09:00 Dose: 42 mls/hr Documented by: MAILE Tranexamic Acid 1,000 mg/ (Sodium Chloride) 100 mls @ 200 mls/hr IV NOW ONE Stop: 05/08/21 10:29 Last Infusion: 05/08/21 10:02 Dose: 0 mls/hr Documented by: Admin: 05/08/21 09:32 Dose: 200 mls/hr Documented by: MAILE Tranexamic Acid 1,000 mg/ (Sodium Chloride) 100 mls @ 200 mls/hr IV INTRA-OP ONE Stop: 05/08/21 11:09 Last Admin: 05/08/21 12:25 Dose: Not Given Documented by: AGNES Lactated Ringer's (Lactated Ringers) 1,000 mls @ 75 mls/hr IV CONT [facility] Last Admin: 05/09/21 01:29 Dose: 75 mls/hr Documented by: Infusion: 05/09/21 01:29 Dose: 75 mls/hr Documented by: Admin: 05/08/21 12:09 Dose: 75 mls/hr Documented by: HU Lisinopril (Lisinopril 5 Mg Tablet) 5 mg PO DAILY [facility] Last Admin: 05/11/21 09:46 Dose: Not Given Documented by: Admin: 05/10/21 10:37 Dose: Not Given Documented by: Admin: 05/09/21 14:19 Dose: Not Given Documented by: AGNES Naloxone HCl (Naloxone 0.4 Mg/Ml Vial) 0.2 mg IV Q2MIN PRN PRN Reason: Opiate Reversal Naloxone HCl (Naloxone 0.4 Mg/Ml Vial) 0.2 mg IV Q2MIN PRN PRN Reason: Opiate Reversal Nitroglycerin (Nitroglycerin 0.4 Mg Sl Tab) 0.4 mg SL PRN PRN PRN Reason: chest pain Ondansetron HCl (Ondansetron 4 Mg/2 Ml Inj) 4 mg IV Q8HR PRN PRN Reason: Nausea And Vomiting Ondansetron HCl (Ondansetron 4 Mg/2 Ml Inj) 4 mg IV NOW PRN PRN Reason: Nausea And Vomiting Ondansetron HCl (Ondansetron 4 Mg Odt) 4 mg PO Q4HR PRN PRN Reason: Nausea And Vomiting Ondansetron HCl (Ondansetron 4 Mg/2 Ml Inj) 4 mg IV Q4HR PRN PRN Reason: Nausea And Vomiting Oxycodone HCl (Oxycodone Ir 5 Mg Tablet) 5 mg PO Q3HR PRN PRN Reason: Pain, Moderate (4-6) Last Admin: 05/09/21 00:10 Dose: 5 mg Documented by: STACEY Oxycodone HCl (Oxycodone Ir 5 Mg Tablet) 2.5 mg PO Q3HR PRN PRN Reason: Pain, Moderate (4-6) Last Admin: 05/11/21 04:00 Dose: 2.5 mg Documented by: WILLIAM Oxycodone/Acetaminophen (Oxycodone/Acetaminophen 5/325 Tablet) 1 tab PO PACUNOW PRN PRN Reason: Mild or Moderate Pain Polyethylene Glycol (Polyethylene Glycol 3350 17 Gm Powd.Pack) 17 gm PO NOW ONE Stop: 05/11/21 08:14 Last Admin: 05/11/21 09:45 Dose: 17 gm Documented by: SARAH Sennosides (Sennosides 8.6 Mg Tablet) 17.2 mg PO BEDTIME [facility] Last Admin: 05/10/21 21:14 Dose: Not Given Documented by: Admin: 05/09/21 20:55 Dose: 17.2 mg Documented by: Admin: 05/08/21 21:43 Dose: 17.2 mg Documented by: STACEY Sodium Chloride (Sodium Chloride 0.9% Flush) 10 ml IV PRN PRN PRN Reason: Flush Sodium Chloride (Sodium Chloride 0.9% Flush) 10 ml IV BID [facility] Last Admin: 05/11/21 09:54 Dose: Not Given Documented by: Admin: 05/10/21 21:12 Dose: 10 ml Documented by: Admin: 05/10/21 10:37 Dose: 10 ml Documented by: SARAH Tamsulosin HCl (Tamsulosin 0.4 Mg Capsule) 0.4 mg PO BEDTIME [facility] Last Admin: 05/10/21 21:14 Dose: Not Given Documented by: Admin: 05/09/21 20:55 Dose: 0.4 mg Documented by: Admin: 05/08/21 21:43 Dose: 0.4 mg Documented by: STACEY Vitamin D (Cholecalciferol (Vitamin D3) 1,000 Unit Tablet) 1,000 unit PO DAILY [facility] Last Admin: 05/11/21 09:46 Dose: 1,000 unit Documented by: Admin: 05/10/21 10:35 Dose: 1,000 unit Documented by: SARAH Vital Signs Vital signs: Vital Signs - 8 hr 05/07/21 16:21 05/07/21 17:48 Temperature 97.6 F Pulse Rate 76 71 Respiratory Rate 18 Blood Pressure 115/56 L 101/64 Pulse Oximetry 99 96 MDM - Fall <Umer Ricketts PA-C - Last Filed: 05/15/21 12:14> Lab Data Result diagrams: 05/09/21 05:16 05/10/21 05:27 Labs: Lab Results 05/07/21 05/07/21 05/07/21 Range/Units 18:20 18:20 18:20 WBC 9.0 (4.5-11.0) X10^3/uL RBC 4.06 L (4.5-5.9) X10^6/uL Hgb 13.7 (13.5-17.5) g/dL Hct 39.8 L (41-53) % MCV 97.9 (80-100) fL MCH 33.6 (26-34) PG MCHC 34.3 (30-36) % RDW 14.6 (11.6-14.8) % Plt Count 234 (150-400) X10^3/uL Neut % (Auto) 80.3 H (50-75) % Lymph % (Auto) 10.5 L (25-40) % [place] % (Auto) 5.4 (3-14) % Eos % (Auto) 2.3 (2-4) % Baso % (Auto) 1.5 (0-2) % Neut # (Auto) 7200 H (9059-9787) /uL Lymph # (Auto) 900 L (2406-8055) /uL [place] # (Auto) 500 (0-900) /uL Eos # (Auto) 200 (0-450) /uL Baso # (Auto) 100 (0-100) /uL PT 13.7 H (10.1-12.7) SECONDS INR 1.2 (0.9-1.3) APTT 27 (26.4-36.2) SECONDS Sodium 133 L (137-145) mmol/L Potassium 4.8 (3.4-5.1) mmol/L Chloride 104 (98-107) mmol/L Carbon Dioxide 26 (22-32) mmol/L BUN 17 (9-20) mg/dL Creatinine 0.64 L (0.66-1.25) mg/dL Estimated GFR > 60.0 (>60) mL/min BUN/Creatinine Ratio 26.6 H (6-22) Glucose 101 (80-110) mg/dL Calcium 8.9 (8.4-10.2) mg/dL Magnesium (1.6-2.3) mg/dL Total Bilirubin 0.6 (0.2-1.3) mg/dL AST 46 (17-59) IU/L ALT 20 (<50) IU/L Alkaline Phosphatase 87 (38-126) U/L Total Protein 8.1 (6.3-8.2) g/dL Albumin 3.8 (3.5-5.0) g/dL Globulin 4.3 H (1.7-4.1) g/dL Albumin/Globulin Ratio 0.9 L (1.0-2.8) 05/07/21 Range/Units 18:20 WBC (4.5-11.0) X10^3/uL RBC (4.5-5.9) X10^6/uL Hgb (13.5-17.5) g/dL Hct (41-53) % MCV (80-100) fL MCH (26-34) PG MCHC (30-36) % RDW (11.6-14.8) % Plt Count (150-400) X10^3/uL Neut % (Auto) (50-75) % Lymph % (Auto) (25-40) % [place] % (Auto) (3-14) % Eos % (Auto) (2-4) % Baso % (Auto) (0-2) % Neut # (Auto) (9193-9759) /uL Lymph # (Auto) (1417-6578) /uL [place] # (Auto) (0-900) /uL Eos # (Auto) (0-450) /uL Baso # (Auto) (0-100) /uL PT (10.1-12.7) SECONDS INR (0.9-1.3) APTT (26.4-36.2) SECONDS Sodium (137-145) mmol/L Potassium (3.4-5.1) mmol/L Chloride (98-107) mmol/L Carbon Dioxide (22-32) mmol/L BUN (9-20) mg/dL Creatinine (0.66-1.25) mg/dL Estimated GFR (>60) mL/min BUN/Creatinine Ratio (6-22) Glucose (80-110) mg/dL Calcium (8.4-10.2) mg/dL Magnesium 2.1 (1.6-2.3) mg/dL Total Bilirubin (0.2-1.3) mg/dL AST (17-59) IU/L ALT (<50) IU/L Alkaline Phosphatase (38-126) U/L Total Protein (6.3-8.2) g/dL Albumin (3.5-5.0) g/dL Globulin (1.7-4.1) g/dL Albumin/Globulin Ratio (1.0-2.8) Imaging Data Extremity x-ray #1: Radiologist's Impression: PROCEDURE:? XR HIP W PEL IF DONE LT 2V ? INDICATIONS:? glf ? TECHNIQUE:? AP pelvis with lateral view(s) of the left hip(s).? ? COMPARISON:? None. ? FINDINGS:? ? Bones:? Iprf-[id number]-[id number] displaced intertrochanteric fracture of the left femur.? The remaining visualized osseous structures appear maintained ? Soft tissues:? Edema about the fracture site. ? ? IMPRESSION:? Mdme-zy-[id number] displaced intertrochanteric fracture of the left femur. ? Dictated by: David Garza M.D. on 05/07/2021 at 17:07 ? ? Approved by: David Garza M.D. on 05/07/2021 at 17:08 ? Extremity x-ray #2: Radiologist's Impression: PROCEDURE:? XR FEMUR LT MIN 2V ? INDICATIONS:? Pain ? TECHNIQUE:? AP and lateral views of the femur were acquired.? ? COMPARISON:? [facility], , XR HIP W PEL IF DONE LT 2V, 05/07/2021, 16:25. ? FINDINGS:? ? Bones:? Comminuted trochanteric fracture of the left hip.? No dislocation.? No other fractures or dislocations.? No suspicious bony lesions.? ? Soft tissues:? No suspicious soft tissue calcifications or masses.? ? IMPRESSION:? Comminuted trochanteric fracture of the left hip. ? ? Dictated by: Kedar Jarrett M.D. on 05/07/2021 at 19:39 ? ? Approved by: Kedar Jarrett M.D. on 05/07/2021 at 19:39 ? MDM Narrative Medical decision making narrative: To consider fracture versus dislocation versus sprain versus strain. Discussed patient's case with patient's son All, who notes that the patient does make his own medical decisions and does not have a power of estate planning attorney. Med can be reached at . <Kae Teixeira, DO - Last Filed: 05/18/21 00:43> Lab Data Labs: Lab Results 05/07/21 05/07/21 05/07/21 Range/Units 18:20 18:20 18:20 WBC 9.0 (4.5-11.0) X10^3/uL RBC 4.06 L (4.5-5.9) X10^6/uL Hgb 13.7 (13.5-17.5) g/dL Hct 39.8 L (41-53) % MCV 97.9 (80-100) fL MCH 33.6 (26-34) PG MCHC 34.3 (30-36) % RDW 14.6 (11.6-14.8) % Plt Count 234 (150-400) X10^3/uL Neut % (Auto) 80.3 H (50-75) % Lymph % (Auto) 10.5 L (25-40) % [place] % (Auto) 5.4 (3-14) % Eos % (Auto) 2.3 (2-4) % Baso % (Auto) 1.5 (0-2) % Neut # (Auto) 7200 H (1111-6839) /uL Lymph # (Auto) 900 L (2415-9337) /uL [place] # (Auto) 500 (0-900) /uL Eos # (Auto) 200 (0-450) /uL Baso # (Auto) 100 (0-100) /uL PT 13.7 H (10.1-12.7) SECONDS INR 1.2 (0.9-1.3) APTT 27 (26.4-36.2) SECONDS Sodium 133 L (137-145) mmol/L Potassium 4.8 (3.4-5.1) mmol/L Chloride 104 (98-107) mmol/L Carbon Dioxide 26 (22-32) mmol/L BUN 17 (9-20) mg/dL Creatinine 0.64 L (0.66-1.25) mg/dL Estimated GFR > 60.0 (>60) mL/min BUN/Creatinine Ratio 26.6 H (6-22) Glucose 101 (80-110) mg/dL Calcium 8.9 (8.4-10.2) mg/dL Magnesium (1.6-2.3) mg/dL Total Bilirubin 0.6 (0.2-1.3) mg/dL AST 46 (17-59) IU/L ALT 20 (<50) IU/L Alkaline Phosphatase 87 (38-126) U/L Total Protein 8.1 (6.3-8.2) g/dL Albumin 3.8 (3.5-5.0) g/dL Globulin 4.3 H (1.7-4.1) g/dL Albumin/Globulin Ratio 0.9 L (1.0-2.8) 05/07/21 Range/Units 18:20 WBC (4.5-11.0) X10^3/uL RBC (4.5-5.9) X10^6/uL Hgb (13.5-17.5) g/dL Hct (41-53) % MCV (80-100) fL MCH (26-34) PG MCHC (30-36) % RDW (11.6-14.8) % Plt Count (150-400) X10^3/uL Neut % (Auto) (50-75) % Lymph % (Auto) (25-40) % [place] % (Auto) (3-14) % Eos % (Auto) (2-4) % Baso % (Auto) (0-2) % Neut # (Auto) (5128-3889) /uL Lymph # (Auto) (8365-3736) /uL [place] # (Auto) (0-900) /uL Eos # (Auto) (0-450) /uL Baso # (Auto) (0-100) /uL PT (10.1-12.7) SECONDS INR (0.9-1.3) APTT (26.4-36.2) SECONDS Sodium (137-145) mmol/L Potassium (3.4-5.1) mmol/L Chloride (98-107) mmol/L Carbon Dioxide (22-32) mmol/L BUN (9-20) mg/dL Creatinine (0.66-1.25) mg/dL Estimated GFR (>60) mL/min BUN/Creatinine Ratio (6-22) Glucose (80-110) mg/dL Calcium (8.4-10.2) mg/dL Magnesium 2.1 (1.6-2.3) mg/dL Total Bilirubin (0.2-1.3) mg/dL AST (17-59) IU/L ALT (<50) IU/L Alkaline Phosphatase (38-126) U/L Total Protein (6.3-8.2) g/dL Albumin (3.5-5.0) g/dL Globulin (1.7-4.1) g/dL Albumin/Globulin Ratio (1.0-2.8) Discharge Plan Departure Patient Disposition: Admitted As Inpatient Clinical Impression: Closed left femoral fracture Admit Date/Time: 05/07/21 20:50 Admit Provider: Angela Motley <Kae Teixeira DO - Last Filed: 05/18/21 00:43> Cosign ED Attending Candyature Attestation: I was immediately available in the department for consultation. Documentation has been reviewed. I agree with assessment and plan.
[2021-05-07 18:40] LABS: Add Manual Diff / Slide Review NO; Basophils Absolute Auto 100 /uL (0-100); Basophils Percent Auto 1.5 % (0-2); Eosinophils Absolute Auto 200 /uL (0-450); Eosinophils Percent Auto 2.3 % (2-4); Hematocrit 39.8 % (41-53); Hemoglobin 13.7 g/dL (13.5-17.5); Lymphocytes Absolute Auto 900 /uL (1100-4500); Lymphocytes Percent Auto 10.5 % (25-40); Mean Corpuscular HGB Conc 34.3 % (30-36); Mean Corpuscular Hemoglobin 33.6 PG (26-34); Mean Corpuscular Volume 97.9 fL (80-100); Monocytes Absolute Auto 500 /uL (0-900); Monocytes Percent Auto 5.4 % (3-14); Neutrophils Absolute Auto 7200 /uL (1500-7000); Neutrophils Percent Auto 80.3 % (50-75); Platelet Count 234 X10^3/uL (150-400); Red Blood Cell Count 4.06 X10^6/uL (4.5-5.9); Red Cell Distribution Width 14.6 % (11.6-14.8)
[2021-05-07 18:46] LABS: INR 1.2 (0.9-1.3); Prothrombin Time 13.7 SECONDS (10.1-12.7)
[2021-05-07 18:49] LABS: PTT Partial Thromboplastin Tim 27 SECONDS (26.4-36.2)
[2021-05-07 18:52] LABS: Alanine Aminotransferase 20 IU/L (<50); Albumin 3.8 g/dL (3.5-5.0); Albumin Globulin Ratio 0.9 (1.0-2.8); Alkaline Phosphatase 87 U/L (38-126); Aspartate Aminotransferase 46 IU/L (17-59); BUN Creatinine Ratio 26.6 (6-22); Bilirubin Total 0.6 mg/dL (0.2-1.3); Blood Urea Nitrogen 17 mg/dL (9-20); Calcium 8.9 mg/dL (8.4-10.2); Carbon Dioxide 26 mmol/L (22-32); Chloride 104 mmol/L (98-107); Estimated Glomerular Filt Rate > 60.0 mL/min (>60); Globulin 4.3 g/dL (1.7-4.1); Glucose 101 mg/dL (80-110); Sodium 133 mmol/L (137-145); Total Protein 8.1 g/dL (6.3-8.2)
--- NOTE | 2021-05-07 19:20 | CM.DANOTE ---
Addendum entered by UMANG Mckinley 05/08/21 14:43: ADD: Patient had hip repair surgery today w/Dr Soto. Attempted assessment w/patient this afternoon, and although talkative, patient was not A+O and could not be redirected to topic of DC planning. Patient may require SNF upon DC. Hopefully patient more alert tomorrow and can discuss DCP options CM team will continue to follow closely for assessment of need and coordination of DCP. JW Original Note: DCP Assessment Patient is 85 y/o male who presents to the ED with concern for hip pain after GLF. Patient has VA and Medicare insurances and prefers to use VA insurance. Patient's PCP is Dr. Ike Castaneda. Patient endorses he lives alone on a boat in a boat yard in [place]. Patient endorses that his boat gets cold often and is heated by firewood. Patient endorses that the boat does not have running water so he has to bring water up to his boat. Patient endorses he drives his own vehicle. Patient indicates independence with ADLs, denies DME and states that he makes microwave meals for food. Patient endorses today he tripped on a wire and stumbled when he fell today and he has had several recent GLFs but he has been able to decrease the impact of the fall and get back up easily. MAIL DELIVERER calls patient's son All (Ph. # [phone]) and All reports he lives in [place]. Patient has another son who lives in [place] but MAIL DELIVERER was unable to reach this son. Patient has local neighbors as supports but it is reported that patient does not have any local family members. Per ED provider Umer Ricketts PA-C patient is pending admission due to patient's fractured left femur. Plan: DCP to f/u with POC UMANG Schmidt Discharge Planning/Care Management CM Discharge Assessment Start: 05/07/21 19:17 Freq: Status: Active Protocol: Document 05/07/21 19:17 LN (Rec: 05/07/21 19:20 LN [id number]) Discharge Planning Assessment Assigned Engineering Laboratory Technician UMANG Page Advance Directives? No History Provided By Patient,Family Member,Medical Record Has Patient been admitted in last 30 No days? Comment Patient lives on boat in the boat yard Household Members none Type of transporation used prior to Drives own vehicle admit Independent with ADL's Yes Is patient alert and oriented? Yes Caregiver for Another No Comment Pending PT/OT assessments Review Status In Process Please Provide Date Initial DC 05/07/21 Assessment Was Performed Next Review Type Continued Stay Review
[2021-05-07 19:24] LABS: HEMOLYSIS 74 (0-50); Potassium 4.8 mmol/L (3.4-5.1)
[2021-05-07 21:35] VITALS: BP 122/73; PULSE 73; RESP 18; TEMP 36.8; O2SAT 94
[2021-05-07 21:40] VITALS: BMI 20.7
[2021-05-07 21:51] LABS: COVID19 - ADMIT (NP swab/PCR) Negative (Negative)
--- NOTE | 2021-05-07 22:16 | PC.ADMIT ---
[facility] [address] Admission Note: Admitted from ED. Transferred to bed via slide board. Patient alert and oriented, but rambles on unrelated topics frequently. Very hard of hearing. Poor health historian. Oriented to room and is resting comfortably. Awaiting provider orders. The patient,Rodrigo Sapp,85 y/o, was given written information regarding hospital policies, unit procedures and contact persons. Patient's smoking status: Current every day smoker. Vital Signs - 8 hr 05/07/21 16:21 05/07/21 17:48 05/07/21 21:35 Temperature 97.6 F 98.3 F Pulse Rate 76 71 73 Respiratory Rate 18 18 Blood Pressure 115/56 L 101/64 122/73 Pulse Oximetry 99 96 94
[2021-05-07 23:06] LABS: Magnesium 2.1 mg/dL (1.6-2.3)
[2021-05-07] MEDS: HYDROMORPHONE 0.5 MG INJ IV (23:17)
[2021-05-07] MEDS: DEXTROSE 5%-0.9% NS 1,000 ML 60 ML IV (23:17)
[2021-05-08] VITALS (16 sets, daily range): BP systolic 104–161; BP diastolic 55–94; PULSE 61–99; RESP 12–20; TEMP 36.2–37.3; O2SAT 90–97
--- NOTE | 2021-05-08 | DI.RAD.S_ITS ---
PROCEDURE: XR HIP W PEL IF DONE LT 2V INDICATIONS: LT HIP SUGERY TECHNIQUE: Single frontal intraoperative left hip radiograph COMPARISON: [facility], CR, XR HIP W PEL IF DONE LT 2V, 05/07/2021, 16:25. FINDINGS: Postsurgical changes of ORIF of the left hip from previously noted intertrochanteric fracture. No immediate complication of hardware. IMPRESSION: Postsurgical changes of the left hip without evidence of immediate complication. Dictated by: Albert Mullins D.O. on 05/08/2021 at 10:37 Approved by: Albert Mullins D.O. on 05/08/2021 at 10:39
--- NOTE | 2021-05-08 00:52 | PC.NURSE ---
Iverson cath placed per provider orders. Attempted 16 fr, but urethra opening did not allow. 14 fr was placed successfully, patient did not tolerate well. Patient now resting comfortably.
--- NOTE | 2021-05-08 04:05 | PM.HP.1 ---
History of Present Illness History of Present Illness Date Patient Seen: 05/07/21 Time Patient Seen: 20:43 Chief complaint: GLF Lt. hip pain Narrative: Rodrigo Sapp is a 85-year-old male with a history of essential hypertension, coronary artery disease that involve knik artery without angina, pacemaker/defibrillator in place, mixed hyperlipidemia, history of UTI, tobacco abuse, BPH with lower urinary tract symptoms who presented to the ED via EMS today for left hip pain following a GLF fall.? Patient states that he tripped over a wire causing him to fall, denying hitting his head or losing consciousness as a result of the fall.? He states he began to experience immediate left hip pain that is worsened with movement.? No fever, chills, chest pain, cough, shortness of breath, nausea, vomiting, diarrhea, dysuria, hematuria, hemoptysis, melena, recent illness or any other concerning symptoms reported.? No further concerns are voiced at this time.? ED discussed case with patient's son, All, who states that the patient does not have a power of tube station attendant.? Patient makes his own medical decisions.? Patient's son can be reached at or . Upon admit patient presented with temp 97.6?, BP 101/64, HR 71, RR 18, O2 saturation 96% on room air. Patient had no white count neutrophils 7200. Mild hyponatremia sodium 133, creatinine 0.64, PT 13, INR 1.2, PTT 27. Patient's left femur x-ray demonstrated comminuted trochanteric fracture left hip, left hip x-ray demonstrated mild to moderate displaced intratrochanteric fracture left femur. Dr. Barker orthopedic surgeon was contacted in the ED and will graciously consult on this patient tomorrow taking them to surgery. Please note patient is a poor historian unable to accurately participate in HPI, ROS, family history, or medication reconciliation. Patient History Medical History (Updated 05/08/21 @ 04:28 by TRICIA Fisher) Benign non-nodular prostatic hyperplasia with lower urinary tract symptoms Coronary artery disease involving knik coronary artery Essential hypertension Gout History of UTI Hyperglycemia Mixed hyperlipidemia Tobacco abuse UTI (urinary tract infection) Surgical History (Updated 05/08/21 @ 04:25 by TRICIA Fisher) History of implantable cardiac defibrillator (ICD) History of permanent cardiac pacemaker placement Family & Social History Social History: household members none-patient lives alone on a boat. Safety & Behavioral: Feels Safe in Current Yes Environment Been Physically Hurt or No Threatened By a Person Tobacco & Substance use: Smoking Status Current every day smoker alcohol intake frequency holiday/special occasion Substance Use Type does not use Meds Home Medications and Allergies Home Medications Medication Instructions Recorded Confirmed Type carvedilol 3.125 mg tablet 3.125 mg PO BID 12/02/20 05/07/21 History atorvastatin 40 mg tablet 40 mg PO BEDTIME #90 tab 04/05/21 05/07/21 Rx clopidogrel 75 mg tablet 75 mg PO DAILY #90 tab 04/05/21 05/07/21 Rx finasteride 5 mg tablet 5 mg PO DAILY #90 tab 04/05/21 05/07/21 Rx lisinopril 5 mg tablet 5 mg PO DAILY #90 tab 04/05/21 05/07/21 Rx nitroglycerin 0.4 mg sublingual 0.4 mg SUBLINGUAL PRN PRN #2 bot 04/05/21 05/07/21 Rx tablet (Nitrostat) tamsulosin 0.4 mg capsule 0.4 mg PO BEDTIME #90 cap 04/05/21 05/07/21 Rx Allergies Allergy/AdvReac Type Severity Reaction Status Date / Time Penicillins Allergy Unknown Verified 02/18/21 14:41 Review of Systems Review of Systems Narrative: All 12 point systems reviewed with the patient and are negative except otherwise documented. Please note patient is a poor historian unable to accurately participate in HPI, ROS, family history, or medication reconciliation. Exam Vital Signs (past 8 hours): - 05/07/21 21:35 05/08/21 01:34 Temperature 98.3 F 98.6 F Pulse Rate 73 67 Respiratory Rate 18 18 Blood Pressure 122/73 116/64 Pulse Oximetry 94 91 Oxygen Delivery Method Room Air Oxygen Flow Rate 0 Narrative Exam Narrative: General: Patient is a thin elderly male appears poorly-nourished in no distress at this time. HEENT: Normocephalic, atraumatic, extraocular muscles intact, oral pharynx is clear and mucous membranes are moist. Neck is supple and symmetric, trachea is midline, no adenopathy, no thyroid enlargement, nontender, no masses palpated. Negative for JVD, noted pacemaker/defib in place, without signs of displacement or infection Chest: no nasal flaring, retractions, or tachypneic labored breathing. Lungs: Auscultation of all lung degroot are clear without adventitious sounds, wheezes, rhonchi, or rales. Cardio: S1 & S2 with regular rate and rhythm without murmur, rubs, or gallops, no carotid bruit, no cardiac pulsations present. Abdomen: Soft nontender, negative for organomegaly, or masses. Bowel sounds are present in all 4 quadrants without guarding or rebound, no CVA tenderness. Musculoskeletal: Muscle tone are equal within normal limits, Right :no deformity, crepitus, effusions, cyanosis, clubbing or edema present. intact radial and pedal pulses are normal. Left leg shorter and left foot adduction rotation. Skin: Warm dry and intact without rashes, ulcerations or petechiae. Neuro: Patient sedated from pain medication and confused poor historian, sensation to touch intact, no gross deficits noted of cranial nerves. Psych: Patient has a poorly-kept appearance. Objective Labs Result Diagrams: 05/08/21 05:13 05/08/21 05:13 Labs: Laboratory Results - last 24 hr 05/07/21 05/07/21 05/07/21 18:20 18:20 18:20 WBC 9.0 RBC 4.06 L Hgb 13.7 Hct 39.8 L MCV 97.9 MCH 33.6 MCHC 34.3 RDW 14.6 Plt Count 234 Neut % (Auto) 80.3 H Lymph % (Auto) 10.5 L [place] % (Auto) 5.4 Eos % (Auto) 2.3 Baso % (Auto) 1.5 Neut # (Auto) 7200 H Lymph # (Auto) 900 L [place] # (Auto) 500 Eos # (Auto) 200 Baso # (Auto) 100 PT 13.7 H INR 1.2 APTT 27 Sodium 133 L Potassium 4.8 Chloride 104 Carbon Dioxide 26 BUN 17 Creatinine 0.64 L Estimated GFR > 60.0 BUN/Creatinine Ratio 26.6 H Glucose 101 Calcium 8.9 Magnesium Total Bilirubin 0.6 AST 46 ALT 20 Alkaline Phosphatase 87 Total Protein 8.1 Albumin 3.8 Globulin 4.3 H Albumin/Globulin Ratio 0.9 L SARS-CoV-2 (PCR) 05/07/21 05/07/21 18:20 20:57 WBC RBC Hgb Hct MCV MCH MCHC RDW Plt Count Neut % (Auto) Lymph % (Auto) [place] % (Auto) Eos % (Auto) Baso % (Auto) Neut # (Auto) Lymph # (Auto) [place] # (Auto) Eos # (Auto) Baso # (Auto) PT INR APTT Sodium Potassium Chloride Carbon Dioxide BUN Creatinine Estimated GFR BUN/Creatinine Ratio Glucose Calcium Magnesium 2.1 Total Bilirubin AST ALT Alkaline Phosphatase Total Protein Albumin Globulin Albumin/Globulin Ratio SARS-CoV-2 (PCR) Negative Assessment & Plan Assessment and plan (1) Coronary artery disease involving knik coronary artery of knik heart without angina pectoris: Status: None (2) Benign non-nodular prostatic hyperplasia with lower urinary tract symptoms: Status: None (3) Essential hypertension: Status: None (4) Mixed hyperlipidemia: Status: None Assessment & Plan narrative: Rodrigo Sapp is a 85-year-old male with a history of essential hypertension, coronary artery disease that involve knik artery without angina, pacemaker/defibrillator in place, mixed hyperlipidemia, history of UTI, tobacco abuse, BPH with lower urinary tract symptoms who presented to the ED via EMS today for left hip pain following a GLF fall, resulting left femur x-ray demonstrated comminuted trochanteric fracture left hip. 1. Mechanical GLF, resulting in mild to moderate displaced intratrochanteric fracture left femur, acute, present on admission -NPO as of midnight -Iverson catheter placed -D5NS @60cc/Hr -Na+ 133 -Pain management -Dr. Barker orthopedics will graciously consult tomorrow and take patient to surgery 2. Essential hypertension, due to coronary artery disease involving knik coronary artery without angina, chronic, likely related to chronic tobacco abuse, with defibrillator/pacemaker implanted, present on admission -continue lisinopril, carvedilol, hold plavix -Smoking cessation edu provided 3. Mixed hyperlipidemia, chronic, present on admission -continue Lipitor 4. BPH with lower urinary tract signs and symptom, chronic, present on admission -continue finasteride and tamsulosin Code status:Full Surrogate decision maker: Chance Sapp COVID PCR: Negative COVID vaccination: unknown DVT/VTE prophylaxis:Holding medication -right SCD only Disposition: Expected length of stay greater than 2 midnight I have utilized all available immediate resources to obtain, update, or review the patient's current medications. Exception-the patient is not eligible for medication reconciliation; due to poor historian, unable to participate in HPI, ROS, and medication reconcilliation. I confirmed that the patient's advanced care plan is present, Code status is documented and/or surrogate decision maker is listed in the patient's medical record. Time Spent With Patient Critical Care time: I spent a total of [] minutes of critical care time on this patient's care today; this time is exclusive of procedural time.
[2021-05-08 05:02] LABS: Amorphous Sediment Urine 1+; Bacteria Urine Few (2-10); Mucus Urine 1+ (Negative); RBC Urine 30-100/HPF (0-5/HPF); Squamous Epithelial Cell Urine 0-1 /HPF (0-5/HPF); WBC Urine 0-1/HPF (0-5/HPF)
[2021-05-08 05:03] LABS: Culture Indicated Urine Specimen Cultured
[2021-05-08 05:44] LABS: Add Manual Diff / Slide Review NO; Basophils Absolute Auto 100 /uL (0-100); Basophils Percent Auto 0.8 % (0-2); Eosinophils Absolute Auto 300 /uL (0-450); Eosinophils Percent Auto 2.9 % (2-4); Hematocrit 39.8 % (41-53); Hemoglobin 13.4 g/dL (13.5-17.5); Lymphocytes Absolute Auto 1100 /uL (1100-4500); Lymphocytes Percent Auto 12.2 % (25-40); Mean Corpuscular HGB Conc 33.7 % (30-36); Mean Corpuscular Hemoglobin 32.8 PG (26-34); Mean Corpuscular Volume 97.5 fL (80-100); Monocytes Absolute Auto 600 /uL (0-900); Monocytes Percent Auto 6.4 % (3-14); Neutrophils Absolute Auto 6900 /uL (1500-7000); Neutrophils Percent Auto 77.7 % (50-75); Platelet Count 205 X10^3/uL (150-400); Red Blood Cell Count 4.08 X10^6/uL (4.5-5.9); Red Cell Distribution Width 14.4 % (11.6-14.8); White Blood Cell Count 8.9 X10^3/uL (4.5-11.0)
[2021-05-08 05:49] LABS: INR 1.2 (0.9-1.3); Prothrombin Time 13.7 SECONDS (10.1-12.7)
[2021-05-08 05:52] LABS: PTT Partial Thromboplastin Tim 28 SECONDS (26.4-36.2)
[2021-05-08 05:56] LABS: Alanine Aminotransferase 18 IU/L (<50); Albumin 3.5 g/dL (3.5-5.0); Albumin Globulin Ratio 0.9 (1.0-2.8); Alkaline Phosphatase 76 U/L (38-126); Aspartate Aminotransferase 40 IU/L (17-59); BUN Creatinine Ratio 21.2 (6-22); Bilirubin Total 0.7 mg/dL (0.2-1.3); Blood Urea Nitrogen 14 mg/dL (9-20); Calcium 8.5 mg/dL (8.4-10.2); Carbon Dioxide 27 mmol/L (22-32); Chloride 104 mmol/L (98-107); Estimated Glomerular Filt Rate > 60.0 mL/min (>60); Glucose 127 mg/dL (80-110); HEMOLYSIS 29 (0-50); Potassium 4.3 mmol/L (3.4-5.1); Sodium 131 mmol/L (137-145); Total Protein 7.5 g/dL (6.3-8.2)
--- NOTE | 2021-05-08 07:58 | PC.NURSE ---
Addendum entered by Juani Aguirre R.N. 05/08/21 12:55: Patient back from surgery, he is groggy but will wake up right away. Dressing to l.mid hip is cdi, scds in place, and patient denies pain. Addendum entered by Juani Aguirre R.N. 05/08/21 09:26: Patient left for surgery at 0900. Heplocked and chart sent down to surgery with RN. Original Note: Assess- Patient is [place] but alert and oriented x3. He understands that he is going to surgery and has been NPO. Denies pain to left hip. Patient is going to surgery around 0900 this morning.
--- NOTE | 2021-05-08 07:59 | P.CONS_ITS ---
History of Present Illness Consult details Date Patient Seen: 05/08/21 Time Patient Seen: 07:59 Chief complaint: GLF Lt. hip pain Reason for consult: Left hip fracture Requesting provider: Umer Ricketts Narrative: Patient is an 85-year-old male that was brought to [facility] by EMS after a ground level fall 05/07/2021 and found to have a left displaced intertrochanteric hip fracture. He is a poor historian with difficulty hearing but lives independently. Has a son All that was available by phone. Primary care doctor Ike Castaneda last saw him in March. History pacemaker. Rn Lactation Dr. Park. Takes Plavix no other anticoagulants endorsed left hip pain on his fall inability to ambulate Meds Home Medications and Allergies Home Medications Medication Instructions Recorded Confirmed Type carvedilol 3.125 mg tablet 3.125 mg PO BID 12/02/20 05/07/21 History atorvastatin 40 mg tablet 40 mg PO BEDTIME #90 tab 04/05/21 05/07/21 Rx clopidogrel 75 mg tablet 75 mg PO DAILY #90 tab 04/05/21 05/07/21 Rx finasteride 5 mg tablet 5 mg PO DAILY #90 tab 04/05/21 05/07/21 Rx lisinopril 5 mg tablet 5 mg PO DAILY #90 tab 04/05/21 05/07/21 Rx nitroglycerin 0.4 mg sublingual 0.4 mg SUBLINGUAL PRN PRN #2 bot 04/05/21 05/07/21 Rx tablet (Nitrostat) tamsulosin 0.4 mg capsule 0.4 mg PO BEDTIME #90 cap 04/05/21 05/07/21 Rx Allergies Allergy/AdvReac Type Severity Reaction Status Date / Time Penicillins Allergy Unknown Verified 02/18/21 14:41 Review of Systems Review of Systems Narrative: Difficult hearing. Left hip pain otherwise no other current complaints. History coronary artery disease, BPH Exam Vital Signs (past 8 hours): - 05/08/21 01:34 05/08/21 05:24 Temperature 98.6 F 99.2 F Pulse Rate 67 61 Respiratory Rate 18 18 Blood Pressure 116/64 106/66 Pulse Oximetry 91 92 Oxygen Delivery Method Room Air Oxygen Flow Rate 0 Narrative Exam Narrative: Alert male appears stated age. Pleasant but poor historian somewhat complicated by hearing. No acute distress. Lying in bed. HEENT normocephalic atraumatic Respiratory exam lungs clear to auscultation CV exam regular rate and rhythm---has pacemaker Genitourinary : Iverson in place yellow urine Musculoskeletal exam: Moves bilateral upper extremities without restriction. Right lower extremity full range of motion no tenderness to palpation normal alignment Left lower extremity that externally rotated and shortened. Tenderness to palpation at the hip. No significant swelling or ecchymosis. Demonstrates 5/5 dorsiflexion plantar flexion of the ankle and flexion extension of the great toe. No swelling or effusion about the knee. Sensation grossly intact to light touch palpable dorsalis pedis pulse, calf soft Objective Imaging Left hip x-ray: My impression: AP pelvis and left lateral hip x-rays and AP lateral left femur x-rays demonstrate Left displaced intertrochanteric hip fracture Labs Result Diagrams: 05/08/21 05:13 05/08/21 05:13 Labs: Laboratory Results - last 24 hr 05/07/21 05/07/21 05/07/21 18:20 18:20 18:20 WBC 9.0 RBC 4.06 L Hgb 13.7 Hct 39.8 L MCV 97.9 MCH 33.6 MCHC 34.3 RDW 14.6 Plt Count 234 Neut % (Auto) 80.3 H Lymph % (Auto) 10.5 L [place] % (Auto) 5.4 Eos % (Auto) 2.3 Baso % (Auto) 1.5 Neut # (Auto) 7200 H Lymph # (Auto) 900 L [place] # (Auto) 500 Eos # (Auto) 200 Baso # (Auto) 100 PT 13.7 H INR 1.2 APTT 27 Sodium 133 L Potassium 4.8 Chloride 104 Carbon Dioxide 26 BUN 17 Creatinine 0.64 L Estimated GFR > 60.0 BUN/Creatinine Ratio 26.6 H Glucose 101 Calcium 8.9 Magnesium Total Bilirubin 0.6 AST 46 ALT 20 Alkaline Phosphatase 87 Total Protein 8.1 Albumin 3.8 Globulin 4.3 H Albumin/Globulin Ratio 0.9 L Urine RBC Urine WBC Ur Squamous Epith Cells Amorphous Sediment Urine Bacteria Urine Mucus Ur Culture Indicated? SARS-CoV-2 (PCR) 05/07/21 05/07/21 05/08/21 18:20 20:57 04:49 WBC RBC Hgb Hct MCV MCH MCHC RDW Plt Count Neut % (Auto) Lymph % (Auto) [place] % (Auto) Eos % (Auto) Baso % (Auto) Neut # (Auto) Lymph # (Auto) [place] # (Auto) Eos # (Auto) Baso # (Auto) PT INR APTT Sodium Potassium Chloride Carbon Dioxide BUN Creatinine Estimated GFR BUN/Creatinine Ratio Glucose Calcium Magnesium 2.1 Total Bilirubin AST ALT Alkaline Phosphatase Total Protein Albumin Globulin Albumin/Globulin Ratio Urine RBC 30-100/hpf H Urine WBC 0-1/hpf Ur Squamous Epith Cells 0-1 /hpf Amorphous Sediment 1+ Urine Bacteria Few (2-10) H Urine Mucus 1+ H Ur Culture Indicated? Specimen cultured SARS-CoV-2 (PCR) Negative 05/08/21 05/08/21 05/08/21 05:13 05:13 05:13 WBC 8.9 RBC 4.08 L Hgb 13.4 L Hct 39.8 L MCV 97.5 MCH 32.8 MCHC 33.7 RDW 14.4 Plt Count 205 Neut % (Auto) 77.7 H Lymph % (Auto) 12.2 L [place] % (Auto) 6.4 Eos % (Auto) 2.9 Baso % (Auto) 0.8 Neut # (Auto) 6900 Lymph # (Auto) 1100 [place] # (Auto) 600 Eos # (Auto) 300 Baso # (Auto) 100 PT 13.7 H INR 1.2 APTT 28 Sodium 131 L Potassium 4.3 Chloride 104 Carbon Dioxide 27 BUN 14 Creatinine 0.66 Estimated GFR > 60.0 BUN/Creatinine Ratio 21.2 Glucose 127 H Calcium 8.5 Magnesium Total Bilirubin 0.7 AST 40 ALT 18 Alkaline Phosphatase 76 Total Protein 7.5 Albumin 3.5 Globulin 4.0 Albumin/Globulin Ratio 0.9 L Urine RBC Urine WBC Ur Squamous Epith Cells Amorphous Sediment Urine Bacteria Urine Mucus Ur Culture Indicated? SARS-CoV-2 (PCR) [facility] Medical History Benign non-nodular prostatic hyperplasia with lower urinary tract symptoms Coronary artery disease involving [place] coronary artery Essential hypertension Gout History of UTI Hyperglycemia Mixed hyperlipidemia Tobacco abuse UTI (urinary tract infection) Surgical History History of implantable cardiac defibrillator (ICD) History of permanent cardiac pacemaker placement Social History household members: none Tobacco & Substance Use Smoking Status: Current every day smoker Assessment & Plan Assessment and plan (1) Coronary artery disease involving [place] coronary artery: Problem details: Has pacemaker-last EF 35 40% Status: Acute (2) Intertrochanteric fracture of left hip: Problem details: Intertrochanteric hip fracture Status: Acute Plan Patient is an 85-year-old male with a displaced intertrochanteric left hip fracture. I discussed the details of the diagnosis and treatment options with the patient in detail. He is indicated for operative fixation of his hip fracture to facilitate early mobilization and reduce the morbidity of the fracture and prolonged bed rest. The benefits of surgical stabilization allow immediate weight-bearing postoperatively. The risks and benefits of the procedure have been discussed with the patient even opportunity to ask questions. The risks of surgery include but are not limited to infection, malunion, nonunion, failure of hardware, persistence of pain, damage to nerves and blood vessels, posttraumatic arthritis, pneumonia, DVT, PE, cardiopulmonary complications and . We also discussed possible need for blood transfusion in the perioperative. Depending on labs and clinical course. The patient expressed a thorough understanding of the risks and benefits of surgery and has elected to proceed. Consent was signed. The patient is his own decision maker. Additionally his son All was contacted via telephone and treatment plans were discussed. Assessment & Plan narrative: Left intertrochanteric hip fracture. The patient is indicated for surgical fixation. Surgery is planned for this morning. He has been NPO since midnight. He has a Iverson in place. He has been optimized by the Internal Medicine Service. Postoperatively he will work with physical therapy may be likely a [facility] discharge COVID-19 COVID-19 status: Negative Result date/Date tested (Pos, Neg/Pending): 05/07/21 Time Spent With Patient Time with patient: less than 30 minutes Critical Care time: I spent a total of [] minutes of critical care time on this patient's care today; this time is exclusive of procedural time.
--- NOTE | 2021-05-08 08:23 | PM.PN.1 ---
Subjective Subjective Date Patient Seen: 05/08/21 Interval history: He is seen today to follow-up his left hip fracture surgery and his chronic medical conditions including hyperlipidemia and hypertension. He has just returned from surgery when I see him and is still quite obtunded/intermittently delirious. He apparently lives on a boat. His sodium is 131 with a potassium 4.3 and the kidney function is normal. He is quite hard of hearing. The only thing that I can understand when he tries to talk is ?I have got some company out there. Exam Vital Signs (past 8 hours): - 05/08/21 01:34 05/08/21 05:24 Temperature 98.6 F 99.2 F Pulse Rate 67 61 Respiratory Rate 18 18 Blood Pressure 116/64 106/66 Pulse Oximetry 91 92 Oxygen Delivery Method Room Air Oxygen Flow Rate 0 Narrative Exam Narrative: He obtunded post anesthesia during my visit. No apparent distress. Heart is regular rate and rhythm without murmur Lungs are clear to auscultation bilaterally Extremities have no ankle edema. The left leg incision is intact without signs of dehiscence or bleeding. Abdomen is soft, bowel sounds positive, nontender, no organomegaly. Objective Labs Result Diagrams: 05/08/21 05:13 05/08/21 05:13 Labs: Laboratory Results - last 24 hr 05/07/21 05/07/21 05/07/21 18:20 18:20 18:20 WBC 9.0 RBC 4.06 L Hgb 13.7 Hct 39.8 L MCV 97.9 MCH 33.6 MCHC 34.3 RDW 14.6 Plt Count 234 Neut % (Auto) 80.3 H Lymph % (Auto) 10.5 L [place] % (Auto) 5.4 Eos % (Auto) 2.3 Baso % (Auto) 1.5 Neut # (Auto) 7200 H Lymph # (Auto) 900 L [place] # (Auto) 500 Eos # (Auto) 200 Baso # (Auto) 100 PT 13.7 H INR 1.2 APTT 27 Sodium 133 L Potassium 4.8 Chloride 104 Carbon Dioxide 26 BUN 17 Creatinine 0.64 L Estimated GFR > 60.0 BUN/Creatinine Ratio 26.6 H Glucose 101 Calcium 8.9 Magnesium Total Bilirubin 0.6 AST 46 ALT 20 Alkaline Phosphatase 87 Total Protein 8.1 Albumin 3.8 Globulin 4.3 H Albumin/Globulin Ratio 0.9 L Urine RBC Urine WBC Ur Squamous Epith Cells Amorphous Sediment Urine Bacteria Urine Mucus Ur Culture Indicated? SARS-CoV-2 (PCR) 05/07/21 05/07/21 05/08/21 18:20 20:57 04:49 WBC RBC Hgb Hct MCV MCH MCHC RDW Plt Count Neut % (Auto) Lymph % (Auto) [place] % (Auto) Eos % (Auto) Baso % (Auto) Neut # (Auto) Lymph # (Auto) [place] # (Auto) Eos # (Auto) Baso # (Auto) PT INR APTT Sodium Potassium Chloride Carbon Dioxide BUN Creatinine Estimated GFR BUN/Creatinine Ratio Glucose Calcium Magnesium 2.1 Total Bilirubin AST ALT Alkaline Phosphatase Total Protein Albumin Globulin Albumin/Globulin Ratio Urine RBC 30-100/hpf H Urine WBC 0-1/hpf Ur Squamous Epith Cells 0-1 /hpf Amorphous Sediment 1+ Urine Bacteria Few (2-10) H Urine Mucus 1+ H Ur Culture Indicated? Specimen cultured SARS-CoV-2 (PCR) Negative 05/08/21 05/08/21 05/08/21 05:13 05:13 05:13 WBC 8.9 RBC 4.08 L Hgb 13.4 L Hct 39.8 L MCV 97.5 MCH 32.8 MCHC 33.7 RDW 14.4 Plt Count 205 Neut % (Auto) 77.7 H Lymph % (Auto) 12.2 L [place] % (Auto) 6.4 Eos % (Auto) 2.9 Baso % (Auto) 0.8 Neut # (Auto) 6900 Lymph # (Auto) 1100 [place] # (Auto) 600 Eos # (Auto) 300 Baso # (Auto) 100 PT 13.7 H INR 1.2 APTT 28 Sodium 131 L Potassium 4.3 Chloride 104 Carbon Dioxide 27 BUN 14 Creatinine 0.66 Estimated GFR > 60.0 BUN/Creatinine Ratio 21.2 Glucose 127 H Calcium 8.5 Magnesium Total Bilirubin 0.7 AST 40 ALT 18 Alkaline Phosphatase 76 Total Protein 7.5 Albumin 3.5 Globulin 4.0 Albumin/Globulin Ratio 0.9 L Urine RBC Urine WBC Ur Squamous Epith Cells Amorphous Sediment Urine Bacteria Urine Mucus Ur Culture Indicated? SARS-CoV-2 (PCR) [facility] Medical History Benign non-nodular prostatic hyperplasia with lower urinary tract symptoms Coronary artery disease involving [place] coronary artery Essential hypertension Gout History of UTI Hyperglycemia Mixed hyperlipidemia Tobacco abuse UTI (urinary tract infection) Surgical History History of implantable cardiac defibrillator (ICD) History of permanent cardiac pacemaker placement Social History household members: none Smoking Status: Current every day smoker Assessment & Plan Assessment & Plan narrative: Rodrigo Sapp is an 85-year-old male with a history of essential hypertension, coronary artery disease, pacemaker/defibrillator in place, mixed hyperlipidemia, history of UTI, tobacco abuse, BPH with lower urinary tract symptoms who presented to the ED via EMS for left hip pain following a GLF fall, resulting in a left femur x-ray demonstrated comminuted trochanteric fracture at of the left hip. 1. Mechanical GLF, resulting in mild to moderate displaced intratrochanteric fracture left femur,? acute, present on admission -surgery with Orthopedics on 05/08/2021 -therapy, weight-bearing, rehab decisions pending -pain medicine as needed 2. Essential hypertension, due to coronary artery disease, chronic, likely related to chronic tobacco abuse, with defibrillator/pacemaker implanted,? present on admission -continue lisinopril, carvedilol, holding plavix -Smoking cessation edu provided 3. Mixed hyperlipidemia, chronic, present on admission -continue Lipitor 4. BPH with lower urinary tract signs and symptom, chronic, present on admission -continue finasteride and tamsulosin 5. Hyponatremia -Na 131 on 05/08, follow Code status:Full Surrogate decision maker: Chance Sapp COVID PCR: Negative COVID vaccination: unknown DVT/VTE prophylaxis:Holding medication -right SCD only Time Spent With Patient Critical Care time: I spent a total of [] minutes of critical care time on this patient's care today; this time is exclusive of procedural time.
[2021-05-08] MEDS: LACTATED RINGERS 1,000 ML 42 ML IV ×2 (09:00→10:20)
[2021-05-08] MEDS: CEFAZOLIN 2 GM/20 ML SYRINGE IV ×2 (09:20→18:00)
[2021-05-08] MEDS: TRANEXAMIC ACID 1,000 MG in SODIUM CHLORIDE 0.9% 100 ML 200 ML IV (09:32)
--- NOTE | 2021-05-08 09:55 | SUR.OPER ---
Supine on padded [place] table with bilateral legs secured in padded positioning boots and suspended in positioning spars, operative leg in traction per surgeon. Head on one pillow. Arm on non-operative side secured on padded armboard <90 degrees abduction. Arm on operative side padded and resting across chest then secured with tape over sheet. Padded perineal post in place per surgeon.
[2021-05-08] MEDS: BUPIVACAINE 0.25% (PF) 30 ML, EPINEPHrine 0.15 MG INJ (09:59)
--- NOTE | 2021-05-08 10:56 | SUR.PHASEI ---
Received to PACU after general anesthesia. Airway patent, self maintained. Report from Dr Fernández and [facility].
--- NOTE | 2021-05-08 11:15 | P.OP_ITS ---
Operative Date/Time/Diagnoses Date of procedure: 05/08/21 Time of procedure: 09:45 Pre-op diagnosis: Left intertrochanteric hip fracture S 72.142 a Post-op diagnosis: same Procedure & Clinicians Procedure: Cephalomedullary nail left intertrochanteric hip fracture cpt code 41119 Same procedure as scheduled: Yes Indications: The patient sustained a left intertrochanteric hip fracture and was indicated for operative fixation. The risks, benefits, and alternatives of procedure were discussed at length with the patient, and they expressed understanding. This was also discussed with the patient's son All by telephone. The patient makes his own medical decisions. Surgical risks including bleeding, infection, damage to nerves, pain, malunion, nonunion, blood clots, hardware failure, pulmonary embolism and cardiovascular risks associated with general anesthesia were discussed. Patient elected to proceed with surgery. Informed Consent was signed. Surgeon: Sheri Soto Click Yes if Unassisted: Yes Anesthesia Type: General Operative Notes Findings: Left intertrochanteric hip fracture. With traction fracture lined up very well on the fracture table. Internal fixation placed with cephalomedullary nail as detailed below Closure Type: primary Specimen(s): none sent Prosthetic devices, grafts, tissues, transplants, or devices: Rudd and nephew intertan short nail 11.5mmx 18cm with 30mmx 5m lcoking screw and 90/85 interlocking lag and compression screw Estimated Blood Loss (mL): 200 Blood products transfused: none Tourniquet time (min): 0 Procedure in detail: Procedure cephalomedullary nail intertrochanteric hip fracture the CPT code 51170 Side: Left Implant Rudd and Nephew 11.5 x 18 cm cephalomedullary nail intertan Procedure: The patient was seen and the site of surgery was marked in the preoperative area. This was the left hip. Patient was brought to the operating room and placed on the operative table and general anesthesia was administered. The patient was positioned on the fracture table in standard fashion with a well-padded boots and a padded peroneal post. An SCD was on the contralateral leg. A formal time-out was called to confirm the patient's side and site of surgery administration of preoperative antibiotics. 1 g dose TXA was administered to decrease blood loss. All were in agreement. The operative leg was then gently manipulated under fluoroscopic guidance to obtain a closed reduction in near anatomic alignment. At this point the operative extremity was prepped and draped in the standard sterile manner. The starting point was marked out using fluoroscopic guidance and marked on the skin. A guidewire was placed percutaneously and the starting point was obtained. Incision was made over the guidewire. An opening drill was inserted to the level of the lesser trochanter. The opening Reamer and guidewire were then removed. An 18 cm cephalomedullary nail was selected. The 11.5 x 18 cm nail was then slid into the canal. The nail was advanced to the proper depth and rotation. The guide for the cephalomedullary screw was then inserted into the external handle. An incision was made and the guide was placed down to the bone. A guidewire was placed to the proper depth into the femoral head and this was confirmed on AP and lateral imaging. The tip apex distance was evaluated and appropriate. This was measured about 95 mm so a 90 screw was selected. Next the outer cortex was drilled for the interlocking screw and the anti rotation bar was placed. The cephalomedullary screw length was then measured off the drill again. A 90 mm lag screw was selected and the corresponding interlocking compression screw. A guidewire was then over drilled and the lag screw placed. The anti rotation bar was removed and then the locking compression screws were placed and confirmed on biplanar fluoroscopy. The integrated compression screw was tightened. Attention was turned to the distal interlock. This was placed with the guide in the standard technique 30 mm x 5. AP and lateral images were captured in the or confirming alignment hardware placement. Wounds were irrigated and closed in layers. 2- 0 in the subcutaneous tissue and stephen in the skin. 0.25% Marcaine with epinephrine was injected into the incision sites for local anesthetic. Sterile dressings were applied. There no immediate complications. Surgical counts were correct. The patient tolerated the procedure well was taken to recovery room for formal radiographs. Postoperative plan. Weightbear as tolerated to the surgical extremity. Work with physical therapy and occupational therapy. Discharge by primary team. Likely usp. Monitor hemoglobin and hematocrit postoperatively may require transfusion if needed. Encourage incentive spirometry. SCDs and Lovenox for DVT prophylaxis. Recommend Lovenox 4 weeks for hip fracture. Follow-up scheduled [facility] in 2 weeks for wound check and repeat x-rays. Keep dressing clean dry and intact. May change of saturated. Complications: none Post-operative Condition: stable Disposition: PACU Plan for aftercare: Postoperative plan. Weightbear as tolerated to the surgical extremity. Work with physical therapy and occupational therapy. Discharge by primary team. Likely usp. Monitor hemoglobin and hematocrit postoperatively may require transfusion if needed. Encourage incentive spirometry. SCDs and Lovenox for DVT prophylaxis. Recommend Lovenox 4 weeks for hip fracture. If the patient is mobilizing very well, could consider aspirin 81 mg b.i.d. instead of Lovenox. Follow-up [facility] in 2 weeks for wound check and repeat x-rays. Keep dressing clean dry and intact. May change of saturated.
--- NOTE | 2021-05-08 12:00 | PT-IP ANOTE ---
Pt had surgery for hip fracture today. Will initiate eval next date.
[2021-05-08] MEDS: LACTATED RINGERS 1,000 ML 75 ML IV (12:09)
--- NOTE | 2021-05-08 12:13 | SUR.PHASEI ---
Pt transferred to room 222. Received in room by [facility]IM[facility]. Bedside handoff done. VSS.
[2021-05-08] MEDS: DOCUSATE 100 MG CAPSULE PO (21:43)
[2021-05-08] MEDS: ATORVASTATIN 20 MG TABLET 40 MG PO (21:43)
[2021-05-08] MEDS: TAMSULOSIN 0.4 MG CAPSULE PO (21:43)
[2021-05-08] MEDS: SENNOSIDES 8.6 MG TABLET 17.2 MG PO (21:43)
[2021-05-09] VITALS (7 sets, daily range): BP systolic 95–124; BP diastolic 55–70; PULSE 70–89; RESP 16–18; TEMP 36.4–37.8; O2SAT 92–94
[2021-05-09] MEDS: OXYCODONE IR 5 MG TABLET PO (00:10)
[2021-05-09] MEDS: LACTATED RINGERS 1,000 ML 75 ML IV (01:29)
[2021-05-09] MEDS: CEFAZOLIN 2 GM/20 ML SYRINGE IV (01:30)
[2021-05-09 05:53] LABS: Hematocrit 38.1 % (41-53); Hemoglobin 12.9 g/dL (13.5-17.5); Mean Corpuscular HGB Conc 33.7 % (30-36); Mean Corpuscular Hemoglobin 33.2 PG (26-34); Mean Corpuscular Volume 98.5 fL (80-100); Platelet Count 173 X10^3/uL (150-400); Red Blood Cell Count 3.87 X10^6/uL (4.5-5.9); Red Cell Distribution Width 14.8 % (11.6-14.8); White Blood Cell Count 11.9 X10^3/uL (4.5-11.0)
[2021-05-09 06:04] LABS: Alanine Aminotransferase 15 IU/L (<50); Albumin 3.5 g/dL (3.5-5.0); Albumin Globulin Ratio 0.9 (1.0-2.8); Alkaline Phosphatase 76 U/L (38-126); Aspartate Aminotransferase 36 IU/L (17-59); BUN Creatinine Ratio 19.7 (6-22); Bilirubin Total 0.6 mg/dL (0.2-1.3); Blood Urea Nitrogen 15 mg/dL (9-20); Calcium 8.9 mg/dL (8.4-10.2); Carbon Dioxide 31 mmol/L (22-32); Chloride 101 mmol/L (98-107); Estimated Glomerular Filt Rate > 60.0 mL/min (>60); Globulin 3.9 g/dL (1.7-4.1); Glucose 112 mg/dL (80-110); HEMOLYSIS < 15 (0-50); Potassium 4.4 mmol/L (3.4-5.1); Sodium 134 mmol/L (137-145); Total Protein 7.4 g/dL (6.3-8.2)
[2021-05-09] MEDS: ACETAMINOPHEN 325 MG TABLET 650 MG PO ×3 (07:05→22:14)
--- NOTE | 2021-05-09 09:11 | P.PN_ITS ---
Subjective Subjective Date Patient Seen: 05/09/21 Time Patient Seen: 09:11 Interval history: Postop day 1 cephalomedullary nail for left intertrochanteric hip fracture. Patient is doing well this morning his lying in bed. No complaints of pain. Appears comfortable eating breakfast. He is a poor historian and talks a somewhat circular and unfocused pattern. Carson ar speech today and speaks about how he is not sure how he fell over a wire and must a fallen hard in the boat yard while he was carrying something, and then quickly moves on to ruminate about repeating fashion trends in [place] culture. Exam Vital Signs (past 8 hours): - 05/09/21 04:50 05/09/21 07:30 Temperature 98.1 F 100.0 F H Pulse Rate 70 70 Respiratory Rate 18 16 Blood Pressure 121/68 95/55 L Pulse Oximetry 92 93 Oxygen Delivery Method Room Air Oxygen Flow Rate 0 Narrative Exam Narrative: Awake in bed oriented to his hospitalization. Very difficult of hearing. Remembers falling his pain in the knee could not get up. Denies pain currently. Demonstrates dorsiflexion plantar flexion of his bilateral ankles and demonstrates EHL function. Left lower extremity thigh is soft. His dressing has partially fallen off and his 3 small incisions with stephen are observed there is no redness erythema or drainage. These are redressed with new bandages today. Patient is observed to cross and uncross his legs in bed without grimace or distress. Sensation grossly intact to light touch. Palpable dorsalis pedis pulses Objective Labs Result Diagrams: 05/09/21 05:16 05/09/21 05:16 Labs: Laboratory Results - last 24 hr 05/09/21 05/09/21 05:16 05:16 WBC 11.9 H RBC 3.87 L Hgb 12.9 L Hct 38.1 L MCV 98.5 MCH 33.2 MCHC 33.7 RDW 14.8 Plt Count 173 Sodium 134 L Potassium 4.4 Chloride 101 Carbon Dioxide 31 BUN 15 Creatinine 0.76 Estimated GFR > 60.0 BUN/Creatinine Ratio 19.7 Glucose 112 H Calcium 8.9 Total Bilirubin 0.6 AST 36 ALT 15 Alkaline Phosphatase 76 Total Protein 7.4 Albumin 3.5 Globulin 3.9 Albumin/Globulin Ratio 0.9 L [facility] Medical History Benign non-nodular prostatic hyperplasia with lower urinary tract symptoms Coronary artery disease involving [place] coronary artery Essential hypertension Gout History of UTI Hyperglycemia Mixed hyperlipidemia Tobacco abuse UTI (urinary tract infection) Surgical History History of implantable cardiac defibrillator (ICD) History of permanent cardiac pacemaker placement Social History household members: none Smoking Status: Current every day smoker Assessment & Plan Post-op Postoperative Procedures: Procedures Operation Date: 05/08/21 09:00 Actual Procedure Side Surgeon p Intramedullary Nailing Femur Left Sheri Soto MD Postoperative day: 1 Postoperative status: doing well Postoperative plan: routine post-op care Postoperative plan narrative: Doing well. Postop hemoglobin stable Left lower extremity: Weight bear as tolerated. Work with physical therapy. Based on home situation of living on a boat and a boat yd will likely require detention discharge May restart Plavix when desired by primary team Currently on Lovenox for DVT prophylaxis. Recommend Lovenox x4 weeks SCDs for DVT prophylaxis as well Ordered a vitamin-D level. If greater than 30 recommend 1000 units of vitamin-D daily and 1200 mg of calcium daily. If less than 30 recommend higher dosage. Time Spent With Patient Time with patient: less than 15 minutes Quality VTE Deep Vein Thrombosis/Pulmonary Embolism Present on Admission: No
[2021-05-09] MEDS: DOCUSATE 100 MG CAPSULE PO ×2 (09:35→20:56)
[2021-05-09] MEDS: ENOXAPARIN 40 MG/0.4 ML SYRINGE SUBCUT (09:35)
[2021-05-09] MEDS: FINASTERIDE 5 MG TABLET PO (09:36)
--- NOTE | 2021-05-09 10:18 | PT.IIE ---
Current Diagnoses Mixed hyperlipidemia (05/07/21) Essential (primary) hypertension (05/07/21) Atherosclerotic heart disease of [place] coronary artery without angina pectoris (05/07/21) Benign prostatic hyperplasia with lower urinary tract symptoms (05/07/21) Displaced intertrochanteric fracture of left femur, initial encounter for closed fracture (05/07/21) Surgery Performed Operation Date: 05/08/21 09:00 Actual Procedures p Intramedullary Nailing Femur(Left) - Sheri Soto MD Medical History (Last Reviewed 05/09/21 @ 09:18 by Sheri Soto MD) Benign non-nodular prostatic hyperplasia with lower urinary tract symptoms Coronary artery disease involving [place] coronary artery Essential hypertension Gout History of UTI Hyperglycemia Mixed hyperlipidemia Tobacco abuse UTI (urinary tract infection) Physical Therapy Inpatient Evaluation/Re-Eval M1 PT/OT-IP Prior Functional Status Start: 05/09/21 08:39 Freq: NEEDED Status: Active Protocol: Document 05/09/21 10:18 AW (Rec: 05/09/21 12:32 AW [id number]) Medical Review Prior Functional Status Medical History Reviewed Yes Communication Pt is [place]. Says he has hearing aids but they don't work. He is pleasantly confused and hyperverbal, likes to tell stories. He is able to make his needs known. Mobility and Gait Pt reports independent mobility without assistive device. He admits to frequent falls but I can usually get myself up. Activities of Daily Living and IADL's Independent, not requiring assist typically. Pt states he does drive. Social History Household Members none Number of Stairs To Enter/Railing? Pt lives on a boat. When asked about stairs or ladder, he does not quantify but does state that he carries firewood and water to his boat and climbs some sort of stairs or ladder twice daily. Additional Social History Comment Pt lives alone on a boat. He has a son, Jose, who lives in [place] and another son in [place]. M2 PT-IP Current Condition Start: 05/09/21 08:39 Freq: NEEDED Status: Active Protocol: Document 05/09/21 10:18 AW (Rec: 05/09/21 12:32 AW [id number]) Physical Therapy Current Condition Current Condition Evaluation Date 05/09/21 Treatment Diagnosis GLF; L intertroch femur fx x/p CMN; impaired mobility and gait Onset Date 05/07/21 M3 PT-IP Subjective Start: 05/09/21 08:39 Freq: NEEDED Status: Active Protocol: Document 05/09/21 10:18 AW (Rec: 05/09/21 12:32 AW [id number]) Subjective Physical Therapy Visit Type Type Initial Evaluation Visit Start Time 09:45 Visit Stop Time 10:18 Total Visit Minutes 33 Physical Therapy Visit Comments Patient Comments Pt is willing to participate with PT Therapy Pain Assessment Pain When Pain Assessed During Mobility Pain Present Pain Present Pain Reported Location Left Hip Scale Used not quantified Pain Management Techniques Apply Cold,Distraction,Timing of Activity with Medications M4 PT-IP Mobility and Gait Start: 05/09/21 08:39 Freq: NEEDED Status: Active Protocol: Document 05/09/21 10:18 AW (Rec: 05/09/21 12:32 AW [id number]) PT-Bed Mobility Assessment Supine to Sit Supine to Sit Moderate Assistance,Head of Bed Elevated,Bedrails Scooting Scooting to Edge of Bed Minimal Assistance PT-Transfer Assessment Sit to and From Stand Sit to and from Stand Moderate Assistance,1 Person Assistance,Use of Upper Extremities Equipment Transfer Assistive Device Gait Belt,Front Wheeled Walker Orthotic/Prosthetic Devices or Brace: No Transfers Transfer Destination Chair Transfer Technique pt amb with FWW Transfer Ability Level of Assist Minimal Assistance,1 Person Assistance,Use of Upper Extremities Comments Mobility Comments Pt was lying in bed as PT arrived. BP 112/64 HR 85. He was agreeable to getting up but concerned about pain. He needed mod assist to sit up EOB mostly to support his left leg and min assist to scoot toward the edge. With his feet on the floor, pt stood from the bed mod assist with FWW. PT educated pt on weightbearing status - WBAT - but pt was hesitant to bear weight on the LLE. He used the walker to shift weight laterally before stepping toward the window with some improvement in LLE WB. He requested return to bed but agreed to sit on the chair first, needing min assist to transfer. Pt completed one sit <> stand from the chair mod A x 1. He agreed to sit up on the chair for a while and was positioned with BLE elevated, ice pack applied to left hip, chair alarm on, call light in reach. BP after activity was 114/72 HR 97. Gait Assessment Gait Gait Assistance Required: Moderate Assistance,1 Person Assist Distance (Feet) 10 Able to Maintain Weight Bearing Status Yes During Gait Assistive Devices Assistive Device Gait Belt,Front Wheeled Walker Orthotic/Prosthetic Devices or Brace: No Gait Deviations General Gait Pattern Antalgic,Decreased Stride Length,Decreased Feet Clearance,Narrow Based Gait, Step-to Gait Factors Limiting Gait Function Factors Limiting Gait Function Pain,Poor Balance,Poor Safety Awareness Comments Gait Comments Pt needed mod assist to ambulate with FWW and verbal cues for safe walker management. Stair Climbing Assessment Comments Stair Climbing Comments Not assessed. PT-Balance Assessment Sitting Balance and Reactions Static Sitting Balance Ability Good Dynamic Sitting Balance Ability Good Standing Balance and Reactions Static Standing Balance Ability Fair Dynamic Standing Balance Ability Fair Device Used FWW M5 PT-IP Objective Assessments Start: 05/09/21 08:39 Freq: NEEDED Status: Active Protocol: Document 05/09/21 10:18 AW (Rec: 05/09/21 12:32 AW [id number]) Orientation Orientation/Cognition Level of Alertness Confusional State Orientation Name,Situation Language Function Ability Hard of Hearing Safety Awareness Decreased Safety Awareness Memory Description Short Term Impaired Gross Range of Motion Lower Extremity ROM Assessment Left Impaired Strength Lower Extremity Strength Assessment Left Impaired Hip 3/5 Knee 4/5 Ankle 4+/5 Comments Strength Comments RLE grossly 4+/5 Coordination Assessment Gross Coordination Gross Coordination WNL Sensation Assessment Sensation Gross Sensation WNL Muscle Tone Muscle Tone WNL Yes M6 PT-IP Treatment Start: 05/09/21 08:39 Freq: NEEDED Status: Active Protocol: Document 05/09/21 10:18 AW (Rec: 05/09/21 12:32 AW [id number]) Physical Therapy Treatment Education Education Provided Safety M7 PT-IP Assessment and Plan Start: 05/09/21 08:39 Freq: NEEDED Status: Active Protocol: Document 05/09/21 10:18 AW (Rec: 05/09/21 12:32 AW [id number]) PT Summary Assessment and Plan Potential Rehabilitation Potential Good Status of Condition at Evaluation Evolving Summary Impairments Pain,ROM,Strength,Balance, Cognition,Bed Mobility, Transfers,Gait Assessment Summary Rodrigo is an 85 yo man seen for PT evaluation on POD1 following CMN for left intertrochanteric femur fracture. He lives alone on a boat and reports independent mobility prior to current injury. However, he does admit to regular falls. He heats his boat with wood and loads wood and water onto his boat via stairs or ladder a few times per day. On assessment, pt was pleasantly confused and verbose. He required min/mod assist with all mobility using FWW. He will require SNF rehab to improve strength and mobility independence. Goals Bed Mobility Goal Standby Assistance Transfer Goal Standby Assistance,Front Wheeled Walker Gait Goal Standby Assistance,Front Wheel Walker Gait Distance 75 Days to Meet Goals 10 Frequency of Treatment Frequency Of Treatment Twice a Day Treatment Plan Physical Therapy Treatment Plan Bed Mobility Training,Transfer Training,Gait Training, Therapeutic Exercise,Balance Retraining,Post Op Education, Discharge Planning,Hot or Cold Pack,Neuromuscular Re-ed Other Recommendations and Next Treatment transfers, gait with chair Focus follow, ther ex Weight Bearing Status Weight Bearing Status Weight Bear as Tolerated Allowed Weight Bearing Amount (enter % WBAT LLE or #) (%) Recommendations To Nursing Amount of Assist Needed 1 Person Assist Discharge Recommendations PT Discharge Recommendations SNF Rehab Equipment Needed for Home Before defer to subacute rehab Discharge Transportation Needs at Discharge Wheelchair/Cabulance
--- NOTE | 2021-05-09 11:52 | PC.NURSE ---
Addendum entered by Juani Aguirre R.N. 05/09/21 16:11: Patient given 2 tylenlol and helpful for discomfort to l.hip. He is resting comfortably now, and friend brought some of his belongings. Addendum entered by Juani Aguirre R.N. 05/09/21 14:29: Patient given tylenol and he is resting comfortably. Original Note: Assess- Patient is alert and oriented x1. He has some pain to his left hip, dressing is cdi, [place] is present. Patient states that he wants a cigarette and he refusing to have a nicotine patch. He is a one person assist with staff and physical therapy. Talking to his son now. Sat up in chair for a bit, tried to get up by himself. Staff in to assist him to the bathroom and patient was unable to have a bowel movement.
--- NOTE | 2021-05-09 12:31 | CM.DANOTE ---
DCP/Continued: Reviewed chart. Patient seen by therapy this AM. Current recommendation is SNF. SPECIAL MACHINE OPERATOR met briefly with patient explained CM/SW role. Patient very [place]. Patient reports that he is agreeable to SNF but this SPECIAL MACHINE OPERATOR unsure if he completely understood? Patient did provide SPECIAL MACHINE OPERATOR with permission to call his son/ [facility] in [place]. Placed call to [facility] explaining the above. [facility] reports that he did know patient was hospitalized and son very agreeable to SNF. Son aware that he may need to come assist after rehabilitation completed. First SNF choice [facility]. SPECIAL MACHINE OPERATOR faxed clinicals to [facility], [facility], and [facility]. D/C anticipated within the next 24-48hrs. P: SNF when stable. Several SNF's reviewing. Patient has no preference. Son requesting to be updated with d/c disposition. SUNDAR
--- NOTE | 2021-05-09 15:21 | PT-IP ANOTE ---
Checked on pt twice this PM for PT treatment. He was resting in bed comfortably on first attempt and requested later time. Second attempt, pt was sleeping soundly and allowed to sleep. Follow up for PT Monday.
--- NOTE | 2021-05-09 17:01 | P.PN_ITS ---
Subjective Subjective Date Patient Seen: 05/09/21 Interval history: 85-year-old male status post left hip fracture repair on 05/08. Patient lives on a boat and had a fall resulting in hip fracture. He is presently maximal assist. His speech is somewhat tangential but seems like could be his normal baseline. Denies severe pain. Exam Vital Signs (past 8 hours): - 05/09/21 12:00 Temperature 99.7 F H Pulse Rate 83 Respiratory Rate 17 Blood Pressure 124/60 Pulse Oximetry 94 Oxygen Delivery Method Room Air Oxygen Flow Rate 0 Narrative Exam Narrative: General: Alert NAD Lungs: Clear Heart: Regular rhythm Extremities: No edema Objective Labs Result Diagrams: 05/09/21 05:16 05/09/21 05:16 Labs: Laboratory Results - last 24 hr 05/09/21 05/09/21 05:16 05:16 WBC 11.9 H RBC 3.87 L Hgb 12.9 L Hct 38.1 L MCV 98.5 MCH 33.2 MCHC 33.7 RDW 14.8 Plt Count 173 Sodium 134 L Potassium 4.4 Chloride 101 Carbon Dioxide 31 BUN 15 Creatinine 0.76 Estimated GFR > 60.0 BUN/Creatinine Ratio 19.7 Glucose 112 H Calcium 8.9 Total Bilirubin 0.6 AST 36 ALT 15 Alkaline Phosphatase 76 Total Protein 7.4 Albumin 3.5 Globulin 3.9 Albumin/Globulin Ratio 0.9 L [facility] Medical History Benign non-nodular prostatic hyperplasia with lower urinary tract symptoms Coronary artery disease involving [place] coronary artery Essential hypertension Gout History of UTI Hyperglycemia Mixed hyperlipidemia Tobacco abuse UTI (urinary tract infection) Surgical History History of implantable cardiac defibrillator (ICD) History of permanent cardiac pacemaker placement Social History household members: none Smoking Status: Current every day smoker Assessment & Plan Assessment & Plan narrative: 1. Mechanical GLF, resulting in mild to moderate displaced intratrochanteric fracture left femur,? acute, present on admission -ORIF on 05/08/2021 -continue PT OT, consult for snf -pain medicine as needed -Lovenox for DVT prophylaxis x4 weeks as recommended by Ortho -vitamin D25 hydroxy ordered by Ortho 2. Essential hypertension, due to coronary artery disease, chronic, likely related to chronic tobacco abuse, with defibrillator/pacemaker implanted,? present on admission -continue lisinopril, carvedilol, plavix -Smoking cessation edu provided 3. Mixed hyperlipidemia, chronic, present on admission -continue Lipitor 4. BPH with lower urinary tract signs and symptom, chronic, present on admission -continue finasteride and tamsulosin 5. Hyponatremia -Na 131 on 05/08, improving Discharge pending for intermediate facility on Monday. Time Spent With Patient Critical Care time: I spent a total of [] minutes of critical care time on this patient's care today; this time is exclusive of procedural time. Quality VTE Deep Vein Thrombosis/Pulmonary Embolism Present on Admission: No
[2021-05-09] MEDS: ATORVASTATIN 20 MG TABLET 40 MG PO (20:55)
[2021-05-09] MEDS: carvediloL 3.125 MG TABLET PO (20:55)
[2021-05-09] MEDS: TAMSULOSIN 0.4 MG CAPSULE PO (20:55)
[2021-05-09] MEDS: SENNOSIDES 8.6 MG TABLET 17.2 MG PO (20:55)
[2021-05-10] VITALS (8 sets, daily range): BP systolic 100–116; BP diastolic 49–65; PULSE 74–100; RESP 14–20; TEMP 36.7–38.6; O2SAT 92–98
[2021-05-10 06:11] LABS: Alanine Aminotransferase 13 IU/L (<50); Albumin 3.4 g/dL (3.5-5.0); Albumin Globulin Ratio 0.8 (1.0-2.8); Alkaline Phosphatase 74 U/L (38-126); Aspartate Aminotransferase 36 IU/L (17-59); BUN Creatinine Ratio 24.6 (6-22); Bilirubin Total 0.8 mg/dL (0.2-1.3); Blood Urea Nitrogen 16 mg/dL (9-20); Calcium 8.7 mg/dL (8.4-10.2); Carbon Dioxide 29 mmol/L (22-32); Chloride 102 mmol/L (98-107); Estimated Glomerular Filt Rate > 60.0 mL/min (>60); Globulin 4.2 g/dL (1.7-4.1); Glucose 106 mg/dL (80-110); HEMOLYSIS < 15 (0-50); Potassium 3.9 mmol/L (3.4-5.1); Sodium 133 mmol/L (137-145); Total Protein 7.6 g/dL (6.3-8.2)
--- NOTE | 2021-05-10 06:24 | PC.NURSE ---
Pt pulled off his dressing around 0600. incisions looked clean and dry. A new dressing was applied. Patient tolerated well and is resting in bed.
--- NOTE | 2021-05-10 07:10 | P.PN_ITS ---
Subjective Subjective Date Patient Seen: 05/10/21 Time Patient Seen: 07:37 Interval history: POD#2 s/p cephalomedullary nailing of L intertrochanteric hip fracture. Extremely hard of hearing but very pleasant and talkative. Complains of left hip pain when queried but appears to be sitting comfortably in his chair. Denies nausea but states his appetite is poor, eating about 50% of meals. Exam Vital Signs (past 8 hours): - 05/10/21 02:15 05/10/21 06:15 Temperature 98.4 F 98.1 F Pulse Rate 75 100 H Respiratory Rate 14 18 Blood Pressure 100/65 116/60 Pulse Oximetry 93 98 Oxygen Delivery Method Room Air Oxygen Flow Rate 0 Narrative Exam Narrative: 5/5 quadriceps, dorsiflexion, plantarflexion bilaterally. Dressings to left hip are CDI. Calves soft, compressible, nontender; no palpable cords or masses. Has received Tylenol for pain, no recent narcotics. [place] with clear yellow urine. Const General: cooperative and comfortable Nutritional Appearance: thin Orientation: alert, awake and oriented x3 Limitations: other limitations (extremely hard of hearing) Objective Labs Result Diagrams: 05/09/21 05:16 05/10/21 05:27 Labs: Laboratory Results - last 24 hr 05/10/21 05:27 Sodium 133 L Potassium 3.9 Chloride 102 Carbon Dioxide 29 BUN 16 Creatinine 0.65 L Estimated GFR > 60.0 BUN/Creatinine Ratio 24.6 H Glucose 106 Calcium 8.7 Total Bilirubin 0.8 AST 36 ALT 13 Alkaline Phosphatase 74 Total Protein 7.6 Albumin 3.4 L Globulin 4.2 H Albumin/Globulin Ratio 0.8 L [facility] Medical History Benign non-nodular prostatic hyperplasia with lower urinary tract symptoms Coronary artery disease involving [place] coronary artery Essential hypertension Gout History of UTI Hyperglycemia Mixed hyperlipidemia Tobacco abuse UTI (urinary tract infection) Surgical History History of implantable cardiac defibrillator (ICD) History of permanent cardiac pacemaker placement Social History household members: none Smoking Status: Current every day smoker Assessment & Plan Post-op Postoperative Procedures: Procedures Operation Date: 05/08/21 09:00 Actual Procedure Side Surgeon p Intramedullary Nailing Femur Left Sheri Soto MD Postoperative day: 2 Postoperative status: doing well Postoperative status narrative: Continue PT and supportive care. Plan is to discharge to SNF. Plavix restart and urinary catheter per hospitalist. Postoperative plan: routine post-op care, ambulate (with PT) and discharge (to SNF per hospitalist team) Postoperative plan narrative: 1) Weight bearing as tolerated to left leg. 2) Lovenox 40mg sq daily through June 05, 2021. Continue SCDs for DVT prophylaxis as well. 3) Awaiting vitamin D levels. If 30 or greater, recommend adding 1000 IU vi tamin D and 1200 mg calcium daily. If less than 30, recommend 5000-10,000 IU vitamin D daily. 3) Follow up at [facility] in 2 weeks for wound check and x-rays. Quality VTE Deep Vein Thrombosis/Pulmonary Embolism Present on Admission: No
[2021-05-10] MEDS: FINASTERIDE 5 MG TABLET PO (10:34)
[2021-05-10] MEDS: CLOPIDOGREL 75 MG TABLET PO (10:34)
[2021-05-10] MEDS: DOCUSATE 100 MG CAPSULE PO (10:34)
[2021-05-10] MEDS: CHOLECALCIFEROL (VITAMIN D3) 1,000 UNIT TABLET 1000 UNIT PO (10:35)
[2021-05-10] MEDS: ENOXAPARIN 40 MG/0.4 ML SYRINGE SUBCUT (10:35)
[2021-05-10] MEDS: SODIUM CHLORIDE 0.9% FLUSH 10 ML IV ×2 (10:37→21:12)
[2021-05-10] MEDS: CALCIUM CARBONATE 600 MG TABLET PO (10:43)
[2021-05-10] MEDS: ACETAMINOPHEN 325 MG TABLET 650 MG PO (10:49)
--- NOTE | 2021-05-10 10:56 | PT.IPTN ---
Current Diagnoses Mixed hyperlipidemia (05/07/21) Essential (primary) hypertension (05/07/21) Atherosclerotic heart disease of [place] coronary artery without angina pectoris (05/07/21) Benign prostatic hyperplasia with lower urinary tract symptoms (05/07/21) Displaced intertrochanteric fracture of left femur, initial encounter for closed fracture (05/07/21) Surgery Performed Operation Date: 05/08/21 09:00 Actual Procedures p Intramedullary Nailing Femur(Left) - Sheri Soto MD Physical Therapy Treatment Note M2 PT-IP Current Condition Start: 05/09/21 08:39 Freq: NEEDED Status: Active Protocol: Document 05/09/21 10:18 AW (Rec: 05/09/21 12:32 AW [id number]) Physical Therapy Current Condition Current Condition Evaluation Date 05/09/21 Treatment Diagnosis GLF; L intertroch femur fx x/p CMN; impaired mobility and gait Onset Date 05/07/21 M3 PT-IP Subjective Start: 05/09/21 08:39 Freq: NEEDED Status: Active Protocol: Document 05/10/21 10:56 AW (Rec: 05/10/21 13:12 AW [id number]) Subjective Physical Therapy Visit Type Type Treatment Note Visit Start Time 10:32 Visit Stop Time 10:56 Total Visit Minutes 24 Physical Therapy Visit Comments Patient Comments Pt is willing to participate with PT. Pt states he has been vaccinated for COVID but records are difficult to obtain as [facility] . Patient Goals Pt is open to rehab placement Therapy Pain Assessment Pain When Pain Assessed During Mobility Pain Present Pain Present Allowed to Sleep Location Left Hip Scale Used not quantified Pain Management Techniques Apply Cold,Distraction,Timing of Activity with Medications M4 PT-IP Mobility and Gait Start: 05/09/21 08:39 Freq: NEEDED Status: Active Protocol: Document 05/10/21 10:56 AW (Rec: 05/10/21 13:12 AW [id number]) PT-Transfer Assessment Sit to and From Stand Sit to and from Stand Minimal Assistance,Moderate Assistance,1 Person Assistance ,Use of Upper Extremities Equipment Transfer Assistive Device Gait Belt,Front Wheeled Walker Orthotic/Prosthetic Devices or Brace: No Transfers Transfer Destination Chair Transfer Technique pt amb with FWW Transfer Ability Level of Assist Minimal Assistance,1 Person Assistance,Use of Upper Extremities Comments Mobility Comments Pt was sitting up in chair as PT arrived. BP 93/6 HR 87 but pt was asymptomatic. He stood from the chair mod A x 1 and used FWW to walk to the sink min/mod A x 1. He declined any hygiene needs but did stand at the sink ~2 minutes with CGA and FWW for balance. He returned to the chair and sat with min assist for controlled descent. He was able to complete one more sit to stand min A x 1. BP was 134/79 HR 96. Gait Assessment Gait Gait Assistance Required: Moderate Assistance,1 Person Assist Distance (Feet) 16 Able to Maintain Weight Bearing Status Yes During Gait Assistive Devices Assistive Device Gait Belt,Front Wheeled Walker Orthotic/Prosthetic Devices or Brace: No Gait Deviations General Gait Pattern Antalgic,Decreased Stride Length,Decreased Feet Clearance,Narrow Based Gait, Step-to Gait Factors Limiting Gait Function Factors Limiting Gait Function Pain,Poor Balance,Poor Safety Awareness Comments Gait Comments Imporved weightbearing LLE today. Pt does require cues to keep both feet within the walker frame and some assist for FWW management, especially in tight spaces. PT-Balance Assessment Sitting Balance and Reactions Static Sitting Balance Ability Good Dynamic Sitting Balance Ability Good Standing Balance and Reactions Static Standing Balance Ability Fair Dynamic Standing Balance Ability Fair Device Used FWW M5 PT-IP Objective Assessments Start: 05/09/21 08:39 Freq: NEEDED Status: Active Protocol: Document 05/09/21 10:18 AW (Rec: 05/09/21 12:32 AW [id number]) Orientation Orientation/Cognition Level of Alertness Confusional State Orientation Name,Situation Language Function Ability Hard of Hearing Safety Awareness Decreased Safety Awareness Memory Description Short Term Impaired Gross Range of Motion Lower Extremity ROM Assessment Left Impaired Strength Lower Extremity Strength Assessment Left Impaired Hip 3/5 Knee 4/5 Ankle 4+/5 Comments Strength Comments RLE grossly 4+/5 Coordination Assessment Gross Coordination Gross Coordination WNL Sensation Assessment Sensation Gross Sensation WNL Muscle Tone Muscle Tone WNL Yes M6 PT-IP Treatment Start: 05/09/21 08:39 Freq: NEEDED Status: Active Protocol: Document 05/10/21 10:56 AW (Rec: 05/10/21 13:12 AW [id number]) Physical Therapy Treatment Exercises Exercises Ankle Pumps,Gluteal Sets Education Education Provided Safety M7 PT-IP Assessment and Plan Start: 05/09/21 08:39 Freq: NEEDED Status: Active Protocol: Document 05/10/21 10:56 AW (Rec: 05/10/21 13:12 AW [id number]) PT Summary Assessment and Plan Potential Rehabilitation Potential Good Status of Condition at Evaluation Evolving Summary Impairments Pain,ROM,Strength,Balance, Cognition,Bed Mobility, Transfers,Gait Progress Towards Goals Progressing Toward Goals,Slow Progress due to Pain Assessment Summary Rodrigo is able to tolerate short bursts of activity and stood/walked with improved LLE weightbearing today. He continues to require min/mod assist to stand and mod assist for ambulation with FWW. He requires SNF rehab to improve strength and mobility independence. Goals Bed Mobility Goal Standby Assistance Transfer Goal Standby Assistance,Front Wheeled Walker Gait Goal Standby Assistance,Front Wheel Walker Gait Distance 75 Days to Meet Goals 10 Frequency of Treatment Frequency Of Treatment Twice a Day Treatment Plan Physical Therapy Treatment Plan Bed Mobility Training,Transfer Training,Gait Training, Therapeutic Exercise,Balance Retraining,Post Op Education, Discharge Planning,Hot or Cold Pack,Neuromuscular Re-ed Other Recommendations and Next Treatment transfers, gait with chair Focus follow, ther ex Weight Bearing Status Weight Bearing Status Weight Bear as Tolerated Allowed Weight Bearing Amount (enter % WBAT LLE or #) (%) Recommendations To Nursing Amount of Assist Needed 1 Person Assist Discharge Recommendations PT Discharge Recommendations SNF Rehab Equipment Needed for Home Before defer to subacute rehab Discharge
--- NOTE | 2021-05-10 12:28 | P.PN_ITS ---
Subjective Subjective Date Patient Seen: 05/10/21 Interval history: 85-year-old male status post left hip fracture repair on 05/08.? [place] and had a fall resulting in hip fracture.? He is presently 2 person assist. Postop pain is controlled with Tylenol. He is medically stable and pending intermediate transfer tomorrow. Exam Vital Signs (past 8 hours): - 05/10/21 06:15 05/10/21 07:18 05/10/21 08:15 Temperature 98.1 F 98.7 F Pulse Rate 100 H 80 Respiratory Rate 18 17 Blood Pressure 116/60 105/60 Pulse Oximetry 98 98 96 05/10/21 12:12 Temperature 99.6 F Pulse Rate 88 Respiratory Rate 17 Blood Pressure 104/57 L Pulse Oximetry 98 Oxygen Delivery Method Room Air Oxygen Flow Rate 0 Narrative Exam Narrative: General:? Alert NAD Lungs:? Clear Heart:? Regular rhythm Extremities:? No edema Objective Labs Result Diagrams: 05/09/21 05:16 05/10/21 05:27 Labs: Laboratory Results - last 24 hr 05/10/21 05:27 Sodium 133 L Potassium 3.9 Chloride 102 Carbon Dioxide 29 BUN 16 Creatinine 0.65 L Estimated GFR > 60.0 BUN/Creatinine Ratio 24.6 H Glucose 106 Calcium 8.7 Total Bilirubin 0.8 AST 36 ALT 13 Alkaline Phosphatase 74 Total Protein 7.6 Albumin 3.4 L Globulin 4.2 H Albumin/Globulin Ratio 0.8 L [facility] Medical History Benign non-nodular prostatic hyperplasia with lower urinary tract symptoms Coronary artery disease involving [place] coronary artery Essential hypertension Gout History of UTI Hyperglycemia Mixed hyperlipidemia Tobacco abuse UTI (urinary tract infection) Surgical History History of implantable cardiac defibrillator (ICD) History of permanent cardiac pacemaker placement Social History household members: none Smoking Status: Current every day smoker Assessment & Plan Assessment & Plan narrative: 1. Mechanical GLF, resulting in mild to moderate displaced intratrochanteric fracture left femur,? acute, present on admission -ORIF on 05/08/2021 -continue PT OT, consult for snf -pain medicine as needed -Lovenox for DVT prophylaxis x4 weeks as recommended by Ortho -vitamin D25 hydroxy level pending 2. Essential hypertension, due to coronary artery disease, chronic, likely related to chronic tobacco abuse, with defibrillator/pacemaker implanted,? present on admission -continue lisinopril, carvedilol, plavix -Smoking cessation edu provided -nicotine patch 3. Mixed hyperlipidemia, chronic, present on admission -continue Lipitor 4. BPH with lower urinary tract signs and symptom, chronic, present on admission -continue finasteride and tamsulosin 5. Hyponatremia -Na 131 on 05/08, improving Discharge pending for intermediate facility?tomorrow Monday. Time Spent With Patient Critical Care time: I spent a total of [] minutes of critical care time on this patient's care today; this time is exclusive of procedural time. Quality VTE Deep Vein Thrombosis/Pulmonary Embolism Present on Admission: No
--- NOTE | 2021-05-10 14:28 | PT.IPTN ---
Current Diagnoses Mixed hyperlipidemia (05/07/21) Essential (primary) hypertension (05/07/21) Atherosclerotic heart disease of [place] coronary artery without angina pectoris (05/07/21) Benign prostatic hyperplasia with lower urinary tract symptoms (05/07/21) Displaced intertrochanteric fracture of left femur, initial encounter for closed fracture (05/07/21) Surgery Performed Operation Date: 05/08/21 09:00 Actual Procedures p Intramedullary Nailing Femur(Left) - Sheri Soto MD Physical Therapy Treatment Note M2 PT-IP Current Condition Start: 05/09/21 08:39 Freq: NEEDED Status: Active Protocol: Document 05/09/21 10:18 AW (Rec: 05/09/21 12:32 AW [id number]) Physical Therapy Current Condition Current Condition Evaluation Date 05/09/21 Treatment Diagnosis GLF; L intertroch femur fx x/p CMN; impaired mobility and gait Onset Date 05/07/21 M3 PT-IP Subjective Start: 05/09/21 08:39 Freq: NEEDED Status: Active Protocol: Document 05/10/21 14:28 AW (Rec: 05/10/21 14:32 AW [id number]) Subjective Physical Therapy Visit Type Type Treatment Note Visit Start Time 14:13 Visit Stop Time 14:23 Total Visit Minutes 10 Number of FAST FOOD CREW MEMBER Visits 0 Physical Therapy Visit Comments Patient Comments Pt is anxious for his friend, Benji, to arrive for a visit. M6 PT-IP Treatment Start: 05/09/21 08:39 Freq: NEEDED Status: Active Protocol: Document 05/10/21 14:28 AW (Rec: 05/10/21 14:32 AW [id number]) Physical Therapy Treatment Exercises Exercises Ankle Pumps,Gluteal Sets,Quad Sets,Heel Slides Education Education Provided Safety Other Treatments Other Treatment Performed Pt completed 10x each exercise bilaterally with frequent cues and redirection from PT. M7 PT-IP Assessment and Plan Start: 05/09/21 08:39 Freq: NEEDED Status: Active Protocol: Document 05/10/21 14:28 AW (Rec: 05/10/21 14:32 AW [id number]) PT Summary Assessment and Plan Potential Rehabilitation Potential Good Status of Condition at Evaluation Evolving Summary Impairments Pain,ROM,Strength,Balance, Cognition,Bed Mobility, Transfers,Gait Progress Towards Goals Progressing Toward Goals,Slow Progress due to Pain Assessment Summary Rodrigo is distracted this afternoon but willing to participate in seated ther ex in reclined position. Prior to mobility, pt's visitor arrived and PT departed. Pt requires SNF rehab to improve strength and mobility independence. Goals Bed Mobility Goal Standby Assistance Transfer Goal Standby Assistance,Front Wheeled Walker Gait Goal Standby Assistance,Front Wheel Walker Gait Distance 75 Days to Meet Goals 10 Frequency of Treatment Frequency Of Treatment Twice a Day Treatment Plan Physical Therapy Treatment Plan Bed Mobility Training,Transfer Training,Gait Training, Therapeutic Exercise,Balance Retraining,Post Op Education, Discharge Planning,Hot or Cold Pack,Neuromuscular Re-ed Other Recommendations and Next Treatment transfers, gait with chair Focus follow, ther ex Weight Bearing Status Weight Bearing Status Weight Bear as Tolerated Allowed Weight Bearing Amount (enter % WBAT LLE or #) (%) Recommendations To Nursing Amount of Assist Needed 1 Person Assist Discharge Recommendations PT Discharge Recommendations SNF Rehab Equipment Needed for Home Before defer to subacute rehab Discharge
[2021-05-10 16:10] LABS: Vitamin D 25 Hydroxy (D3) 17.7 ng/mL (30.0-100.0)
[2021-05-10 16:51] LABS: COVID19 -Nasal RAPID Negative (Negative)
--- NOTE | 2021-05-10 16:55 | CM.DPC ---
DCP/continued: Reviewed chart. Per provider patient is medically stable to d/c to SNF today. HACKSAW INSPECTOR placed calls to [facility], [facility], [facility], and [facility]. All facilities full today. Elizabeth at [facility] reports that she can accept this patient tomorrow 05-11-21. HACKSAW INSPECTOR spoke with Dr. Mcadams and he is agreeable to d/c patient in AM tomorrow. All clinicals faxed to [facility] to review. Orders, vaccine record, and PASSR faxed to [facility] today. In addition, asked RN to obtain order for rapid COVID test today per facilities request. HACKSAW INSPECTOR hopeful that this will be done and result negative for d/c tomorrow. Signed medication sheet placed in red folder after it was faxed to [facility]. Dr. Mcadams aware that he will need to finalize d/c in AM. In addition to the above met with patient and updated him on plan. Patient aware and agreeable. Patient requesting HACKSAW INSPECTOR call his friend Benji Sheppard to update him on plan. Placed call to Benji and he reports that he will come visit patient today and follow up with him at [facility]. Patient's son/All also called with update. HACKSAW INSPECTOR will need to call [facility] in AM to find out transport time. Elizabeth was anticipating around 11:00AM. In addition, place call to son and let him know final disposition. Patient's friend/Benji already made aware. HACKSAW INSPECTOR obtained copy of COVID vaccine from [facility] in [facility] today. Copy faxed to [facility]. P: [facility] tomorrow via cabulance. SUNDAR
--- NOTE | 2021-05-10 18:06 | PC.NURSE ---
Patient up with assistance to attempt to void, he states he does not have the urge to go yet. Encouraged to drink more water. Will check bladder scan and continue to monitor.
[2021-05-11 04:00] VITALS: BP 106/61; PULSE 94; RESP 18; TEMP 36.6; O2SAT 95
[2021-05-11] MEDS: OXYCODONE IR 5 MG TABLET 2.5 MG PO (04:00)
--- NOTE | 2021-05-11 08:20 | CM.DPC ---
DCP Discharge SNF Per MD, pt remains stable for d/c to SNF today and will begin discharge orders and summary. COVID swab completed yesterday 05/10/21 and negative and in timeframe for CMV. SW received a call from [facility] stating they can still accept today and transport scheduled for 1100 and they have everything they need but d/c summary and updated COVID swab results. [facility] will call pt's family and friend after he is admitted. SHANAE received a call from [facility] stating now that COVID vax status confirmed they could also accept him but SW updated that pt and family agreeable with [facility] and pt does not want to change the plan after meeting bedside with him on update of d/c today. SHANAE faxed d/c summary and COVID negative swab results to [facility] to review. SHANAE updated RN and [employer]. Plan: Patient to d/c to [facility] today at 1100 via facility van prior to safe return home. UMANG Yun
[2021-05-11 08:39] VITALS: BP 103/81; PULSE 79; RESP 16; TEMP 36.9; O2SAT 94
[2021-05-11] MEDS: CALCIUM CARBONATE 600 MG TABLET PO (09:45)
[2021-05-11] MEDS: ENOXAPARIN 40 MG/0.4 ML SYRINGE SUBCUT (09:45)
[2021-05-11] MEDS: polyethylene glycoL 3350 17 GM POWD.PACK PO (09:45)
[2021-05-11] MEDS: FINASTERIDE 5 MG TABLET PO (09:45)
[2021-05-11] MEDS: DOCUSATE 100 MG CAPSULE PO (09:45)
[2021-05-11 09:46] VITALS: BP 101/64; PULSE 90
[2021-05-11] MEDS: CLOPIDOGREL 75 MG TABLET PO (09:46)
[2021-05-11] MEDS: carvediloL 3.125 MG TABLET PO (09:46)
[2021-05-11] MEDS: CHOLECALCIFEROL (VITAMIN D3) 1,000 UNIT TABLET 1000 UNIT PO (09:46)
[2021-05-11] MEDS: ACETAMINOPHEN 325 MG TABLET 650 MG PO (09:57)
--- NOTE | 2021-05-11 10:47 | PC.NURSE ---
Addendum entered by Tj Ervin R.N. 05/11/21 11:00: Report given to Mukul at [facility] [place]. Patient picked up by Rad from transport via wheelchair. Patient sent with all his belongings including upper and lower dentures. Dressings to left leg intact. Original Note: Have attempted to call [facility] [phone] twice without being able to reach anyone to give report to.
--- NOTE | 2021-05-11 13:43 | P.DS_ITS ---
History of Present Illness History of Present Illness Chief complaint: GLF Lt. hip pain Narrative: ?Rodrigo Sapp is a 85-year-old male with a history of essential hypertension, coronary artery disease that involve [place] artery without angina, pacemaker/defibrillator in place, mixed hyperlipidemia, history of UTI, tobacco abuse, BPH with lower urinary tract symptoms who presented to the ED via EMS today for left hip pain following a GLF fall.? Patient states that he tripped over a wire causing him to fall, denying hitting his head or losing consciousness as a result of the fall.? He states he began to experience immediate left hip pain that is worsened with movement.? No fever, chills, chest pain, cough, shortness of breath, nausea, vomiting, diarrhea, dysuria, hematuria, hemoptysis, melena, recent illness or any other concerning symptoms reported.? No further concerns are voiced at this time.? ED discussed case with patient's son, All, who states that the patient does not have a power of attorn ey.? Patient makes his own medical decisions.? Patient's son can be reached at or . Upon admit patient presented with temp 97.6?, BP 101/64, HR 71, RR 18, O2 saturation 96% on room air.? Patient had no white count neutrophils 7200.? Mild hyponatremia sodium 133, creatinine 0.64, PT 13, INR 1.2, PTT 27.? Patient's left femur x-ray demonstrated comminuted trochanteric fracture left hip, left hip x-ray demonstrated mild to moderate displaced intratrochanteric fracture left femur.? Dr. Barker orthopedic surgeon was contacted in the ED and will graciously consult on this patient tomorrow taking them to surgery. Please note patient is a poor historian unable to accurately participate in HPI, ROS, family history, or medication reconciliation. Discharge Providers Provider Date of admission: 05/07/21 20:50 Discharge Date: 05/11/21 Primary care physician: Ike Castaneda DO Consults: 05/07/21 18:59 Consult to CONSUMER LOAN UNDERWRITER - [facility] Therapist Stat Comment: 05/07/21 22:52 Consult to Physician Routine Comment: Consulting Provider: Sheri Soto Reason for consultation: Left femur fracture Has provider been notified: Yes 05/08/21 11:41 Consult to Discharge Planning Routine Comment: Consult to Physical Therapy Evaluate & Treat Comment: wbat Physician Instructions: Evaluate and Treat Consult to Respiratory Therapy Evaluate & Treat Comment: Physician Instructions: Evaluate and treat Discharge provider: Rufus Mcadams MD Summary Hospital Course Discharge Diagnosis: 1. Left femur displaced intratrochanteric fracture 2. Mechanical ground level fall 3. Hard of hearing 4. Essential hypertension 5. History of coronary artery disease 6. Cigarette dependency 7. BPH 8. Vitamin-D deficiency Patient was admitted after ground level fall resulting in left femur intertrochanteric fracture. He had ORIF on 05/08/2021. Surgery and postop course were uneventful. Per PT and OT eval he is requiring transfer to snf facility for rehab services. A 25 hydroxy vitamin-D level was deficient at 17. His blood pressures have been low 100 postop and we discontinued low- dose lisinopril 5 mg q.d. but continued his low-dose of carvedilol for cardiac protection. Status at Discharge Cognitive/behavioral status at discharge: oriented Overall status at discharge: patient is not back to baseline Time Spent with Patient Time spent: Less than 30 minutes Exam Vital Signs (past 8 hours): - 05/11/21 08:39 05/11/21 09:46 Temperature 98.4 F Pulse Rate 79 90 Respiratory Rate 16 Blood Pressure 103/81 101/64 Pulse Oximetry 94 Oxygen Delivery Method Room Air Oxygen Flow Rate 0 Objective Labs Result Diagrams: 05/09/21 05:16 05/10/21 05:27 Labs: Laboratory Results - last 24 hr 05/09/21 05/10/21 05:16 16:15 25-OH Vitamin D Total 17.7 L SARS-CoV-2 (PCR) Negative [facility] Medical History Benign non-nodular prostatic hyperplasia with lower urinary tract symptoms Coronary artery disease involving [place] coronary artery Essential hypertension Gout History of UTI Hyperglycemia Mixed hyperlipidemia Tobacco abuse UTI (urinary tract infection) Surgical History History of implantable cardiac defibrillator (ICD) History of permanent cardiac pacemaker placement Social History household members: none Smoking Status: Current every day smoker Discharge Plan Discharge Plan Patient Disposition: SNF Transfer to: [facility] [place] Consult as needed: Dental, Hearing, Mental health, Podiatry and Vision Provider Discharge Comment: s/p lt hip ORIF 05/08/2021 Discharge orders & Medications Prescriptions: New sennosides [senna] 8.6 mg Tablet 17.2 mg PO BEDTIME Qty: 60 0RF acetaminophen 325 mg Tablet 650 mg PO Q6HR PRN (Reason: Fever/Mild Pain (1-3)) Qty: 60 0RF calcium carbonate [Calcium 600] 600 mg calcium (1,500 mg) Tablet 600 mg PO BID Qty: 60 0RF enoxaparin [Lovenox] 40 mg/0.4 mL Syringe 40 mg SUBCUT DAILY 28 Days Qty: 28 0RF cholecalciferol (vitamin D3) 25 mcg (1,000 unit) Tablet 1,000 unit PO DAILY Qty: 30 0RF nicotine 21 mg/24 hr patch 24 hour 1 patch transdermal DAILY Qty: 28 0RF Continued carvedilol 3.125 mg tablet 3.125 mg PO BID 0RF Label Comments: [facility], [facility] by [place] [facility]. next refill due 01/2021 Rx Instructions: must administer with a meal/food atorvastatin 40 mg tablet 40 mg PO BEDTIME Qty: 90 3RF clopidogrel 75 mg tablet 75 mg PO DAILY Qty: 90 3RF finasteride 5 mg tablet 5 mg PO DAILY Qty: 90 3RF tamsulosin 0.4 mg capsule 0.4 mg PO BEDTIME Qty: 90 3RF nitroglycerin [Nitrostat] 0.4 mg tablet, sublingual 0.4 mg Sublingual PRN PRN (Reason: chest pain) Qty: 2 3RF Discontinued lisinopril 5 mg tablet 5 mg PO DAILY Qty: 90 3RF Follow up/Referrals: Sheri Soto MD [Physician] - (2 weeks for wound check and repeat xrays) Ike Castaneda DO [Primary Care Provider] - Discharge Health Status Multidrug resistant organism: No MDRO Diet/Activity/Treatments Diet: Regular Liquid consistency: Normal/Thin Food texture: Regular Activity: Weight bearing as tolerated to left leg. Skin/Wound/Dressing Care Report to your healthcare provider any signs of infection, such as:: chills, fever, night sweats, increased pain, unusual drainage and unusual redness Dressing: Keep incisions clean and dry. Change dressing if it becomes wet or dirty. Special Rehabilitation Services Reason for rehabilitation: Post-operative therapy Rehab type: Physical therapy and Occupational therapy Visit Report/Discharge Packet Instructions: How to Prevent Falls Stand Alone Forms: Surgery Discharge Discharge Data Primary Care Provider: Ike Castaneda VTE Deep Vein Thrombosis/Pulmonary Embolism Present on Admission: No
== END 2021-05-11 11:15 | DRG 481 ==
LOC: ED 19:03 → AC 20:16
PROVIDERS: Orthopaedic Surgery Foot and Ankle Surgery; Admitting Provider Nurse Practitioner Family; Emergency Provider Physician Assistant; PCP Family Medicine; Referring Provider Physician Assistant; Visit Provider Nurse Practitioner Family
PROC: 0QS706Z Reposition Left Upper Femur with Intramedullary Internal Fixation Device, Open Approach (ICD-10-PCS; CPT 27245; principal; 2021-05-08 09:00)
DX: S72.142A Displaced intertrochanteric fracture of left femur, initial encounter for closed fracture (principal); E87.1 Hypo-osmolality and hyponatremia; I10 Essential (primary) hypertension; I25.10 Atherosclerotic heart disease of native coronary artery without angina pectoris; E78.2 Mixed hyperlipidemia; N40.1 Benign prostatic hyperplasia with lower urinary tract symptoms; F17.200 Nicotine dependence, unspecified, uncomplicated; W01.0XXA Fall on same level from slipping, tripping and stumbling without subsequent striking against object, initial encounter; Z95.5 Presence of coronary angioplasty implant and graft; Z95.0 Presence of cardiac pacemaker; Z20.822 Contact with and (suspected) exposure to COVID-19
CPT/HCPCS: 36415; 73502; 73552; 76000; 80053; 81015; 82306; 82962; 83735; 85025; 85027; 85610; 85730; 87086; 87635; 94760; 97110; 97116; 97162; 97530; 99284; 99406; C9803; J0171; J0690; J1100; J1170; J1650; J2405; J2704; J3010

== ENCOUNTER 2022-06-19 09:07 | Emergency (ER) | payer MEDICARE, SELFPAY ==
[2022-06-19 09:10] VITALS: BP 142/71; PULSE 67; RESP 18; TEMP 36.6; O2SAT 98
--- NOTE | 2022-06-19 09:36 | PC.NURSE ---
Denies injury or trauma i don't know what happen Patient reports it comes in waves. Tender to palpation along left flank.
--- NOTE | 2022-06-19 09:45 | ED.BACK ---
HPI - Back Pain/Injury General Chief Complaint: Back Pain/Injury Stated Complaint: Back pain/lt flank Time Seen by Provider: 06/19/22 09:11 Source: EMS History of Present Illness HPI Narrative: Patient 86-year-old male history of coronary artery disease, hypertension hyperlipidemia BPH, presenting today with left flank pain. He is extremely hard of hearing despite having his hearing aids in. He reports that he woke up with pain in his left flank he might be having abdominal pain maybe he was nauseous no vomiting. It feels better when he touches it. He denies any injury. It hurt to put on his boots this morning. Denies any chest pain or shortness of breath. He is not taken anything for. It seems to come and go in waves no prior history of kidney stone. Related Data Previous Rx's Medication Instructions Recorded atorvastatin 40 mg tablet 40 mg PO BEDTIME #90 tabs 04/05/21 clopidogrel 75 mg tablet 75 mg PO DAILY #90 tabs 04/05/21 finasteride 5 mg tablet 5 mg PO DAILY #90 tabs 04/05/21 nitroglycerin 0.4 mg sublingual 0.4 mg sublingual PRN PRN chest 04/05/21 tablet (Nitrostat) pain ##2 tamsulosin 0.4 mg capsule 0.4 mg PO BEDTIME #90 caps 04/05/21 acetaminophen 325 mg tablet 650 mg PO Q6HR PRN Fever/Mild Pain 05/10/21 (1-3) #60 tabs calcium carbonate 600 mg calcium 600 mg PO BID #60 tabs 05/10/21 (1,500 mg) tablet (Calcium) cholecalciferol (vitamin D3) 25 1,000 unit PO DAILY #30 tabs 05/10/21 mcg (1,000 unit) tablet nicotine 21 mg/24 hr daily 1 patch transdermal DAILY #28 ea 05/10/21 transdermal patch Disabled Parking permit See Rx Instructions .Route 06/29/21 .COMPLEX #1 ea carvedilol 3.125 mg tablet 3.125 mg PO BID #180 tabs 11/17/21 Allergies Allergy/AdvReac Type Severity Reaction Status Date / Time Penicillins Allergy Unknown Verified 01/06/22 14:20 Review of Systems Review of Systems ROS Unobtainable: All systems reviewed & are unremarkable except as noted in HPI and below Patient History Medical History Benign non-nodular prostatic hyperplasia with lower urinary tract symptoms Coronary artery disease involving [place] coronary artery Essential hypertension Gout History of UTI Hyperglycemia Mixed hyperlipidemia Tobacco abuse UTI (urinary tract infection) Surgical History History of implantable cardiac defibrillator (ICD) History of permanent cardiac pacemaker placement Social History household members: none Smoking Status: Current every day smoker Smoking Status: Current every day smoker alcohol intake frequency: holidays/special occasions only Substance Use Type: does not use Exam Initial Vital Signs Initial Vital Signs: Vital Signs Temperature 97.8 F 06/19/22 09:10 Pulse Rate 67 06/19/22 09:10 Respiratory Rate 18 06/19/22 09:10 Blood Pressure 142/71 H 06/19/22 09:10 Pulse Oximetry 98 06/19/22 09:10 Oxygen Delivery Method 06/19/22 09:10 GENERAL: Weathered 86-year-old male hard of hearing HEENT: Head atraumatic,EOMI, pupils reactive, face symmetric, moist mucous membranes CARDIOVASCULAR: Regular rate and rhythm without murmurs, rubs or gallops. RESPIRATORY: Breath sounds equal bilaterally, no wheezes rales or rhonchi. ABDOMEN: Soft, nontender. Normoactive bowel sounds all 4 quadrants. No guarding or rebound. : Left CVA tenderness EXTREMITIES: Normal range of motion, no clubbing or edema. Neurovascularly intact NEUROLOGICAL: Alert and oriented x4. Able to lift legs without any difficulty SKIN: Warm, dry, no laceration, no petechiae, no rashes or lesions. Course Orders Ordered: Discontinued Medications Ketorolac Tromethamine (Ketorolac 30 Mg/Ml Vial) 30 mg IV NOW ONE Stop: 06/19/22 09:57 Last Admin: 06/19/22 10:03 Dose: 30 mg Documented By: ABIGAIL Ondansetron HCl (Ondansetron 4 Mg/2 Ml Inj) 4 mg IV NOW ONE Stop: 06/19/22 10:09 Last Admin: 06/19/22 12:21 Dose: Not Given Documented By: MARCIO Vital Signs Vital signs: Vital Signs - 8 hr 06/19/22 12:28 Pulse Rate 74 Respiratory Rate 12 Blood Pressure 116/71 Pulse Oximetry 96 Oxygen Delivery Method Room Air MDM - Back Pain/Injury Lab Data 06/19/22 09:00 06/19/22 09:00 Labs: Lab Results 06/19/22 06/19/22 06/19/22 Range/Units 09:00 09:00 09:50 WBC 9.4 (4.5-11.0) X10^3/uL RBC 4.75 (4.5-5.9) X10^6/uL Hgb 15.8 (13.5-17.5) g/dL Hct 47.4 (41-53) % MCV 99.8 (80-100) fL MCH 33.3 (26-34) PG MCHC 33.4 (30-36) % RDW 14.3 (11.6-14.8) % Plt Count 201 (150-400) X10^3/uL Neut % (Auto) 67.9 (50-75) % Lymph % (Auto) 17.6 L (25-40) % [place] % (Auto) 6.7 (3-14) % Eos % (Auto) 7.5 H (2-4) % Baso % (Auto) 0.3 (0-2) % Neut # (Auto) 6400 (3318-2293) /uL Lymph # (Auto) 1700 (8397-8245) /uL [place] # (Auto) 600 (0-900) /uL Eos # (Auto) 700 H (0-450) /uL Baso # (Auto) 0 (0-100) /uL Sodium 137 (137-145) mmol/L Potassium 4.4 (3.4-5.1) mmol/L Chloride 99 (98-107) mmol/L Carbon Dioxide 30 (22-32) mmol/L BUN 20 (9-20) mg/dL Creatinine 0.79 (0.66-1.25) mg/dL Estimated GFR > 60 (>60) mL/min BUN/Creatinine Ratio 25.3 H (6-22) Glucose 113 H (80-110) mg/dL Calcium 8.9 (8.4-10.2) mg/dL Total Bilirubin 0.5 (0.2-1.3) mg/dL AST 46 (17-59) IU/L ALT 29 (<50) IU/L Alkaline Phosphatase 91 (38-126) U/L Total Protein 8.4 H (6.3-8.2) g/dL Albumin 4.3 (3.5-5.0) g/dL Globulin 4.1 (1.7-4.1) g/dL Albumin/Globulin Ratio 1.0 (1.0-2.8) Lipase 116 (23-300) U/L Urine RBC None seen (0-5/HPF) Urine WBC 0-1/hpf (0-5/HPF) Ur Squamous Epith Cells None seen (0-5/HPF) Urine Bacteria None seen (None) Ur Culture Indicated? Cult not indicated Urine Dip Bedside Urine Glucose Negative Bedside Urine Bilirubin - Negative Bedside Urine Ketone - Negative Urine Specific [place] 1.020 Bedside Urine Occult Blood - Negative Bedside Urine pH 6.0 Bedside Urine Protein - Negative Bedside Urine Urobilinogen - Negative Bedside Urine Nitrite - Negative Bedside Urine Leukocytes +/- [address] scan - abdomen/pelvis: Radiologist's Impression: CT Scan Report Signed Patient: Rodrigo Sapp MR#: [id number] : 1935 Acct:[id number] Age/Sex: 86 / M Date of Service: 06/19/22 Loc: ED Accession Number: [id number] ?? Procedure: CT kidney ureter bladder (KUB) Ordering Provider: Kae Teixeira D.O. PROCEDURE:? CT KIDNEY URETER BLADDER (KUB) ? INDICATIONS:? left flank pain ? TECHNIQUE:? Axial sections were acquired from the lung bases to the pubic symphysis.? Coronal and sagittal reformats were performed.? For radiation dose reduction, the following was used: ?automated exposure control, adjustment of mA and/or kV according to patient size.? ? COMPARISON:? [facility], CT, ABDOMEN/PELVIS WITH CONTRAST, 06/19/2015, 10:38.? [facility], CT, ABDOMEN/PELVIS WITHOUT CONTRAS, 08/11/2015, 9:58. ? FINDINGS:? Image quality:? There is artifact associated with the metallic hardware. ? Artifact from the metallic hardware is reduced by metal reconstruction algorithm.? ? Lung bases:? Subpleural fibrotic change can be seen.? There are few subpleural blebs seen.? There is a very large hiatal hernia seen, which contains the majority of the stomach and the spleen. Heart:? No significant findings. An AICD is seen.? ? URINARY: Right Kidney: ? No stones or hydronephrosis.? Right Ureter:? No hydroureter.? ? Left Kidney: ? No stones or hydronephrosis. Left Ureter:? No hydroureter.? ? Bladder:? Normal wall thickness.? Bilateral bladder diverticula can be seen.? The diverticula contain stones. ? ABDOMEN: Liver:? Unremarkable.? ? Gallbladder:? Unremarkable.? ? Biliary ducts:? Unremarkable.? ? Pancreas:? Unremarkable.? ? Spleen:? Unremarkable.? ? Adrenal Glands:? Unremarkable.? ? ? Stomach and Bowel:? Stomach, small bowel loops, and colon are unremarkable.? Colonic diverticulosis is seen, without findings of active diverticulitis. Peritoneum:? No abnormal intraperitoneal fluid.? No free air.? The previously seen mesenteric mass is no longer definitely seen. ? Ventral Wall: ? No hernia.? Abdominal Nodes:? No enlarged retroperitoneal or mesenteric lymph nodes.? Vessels:? Aorta and inferior vena cava are normal in size.? Atherosclerotic calcification is noted.? ? PELVIS: Pelvic Organs:? An enlarged prostate is seen, measuring 6.2 cm transversely. Pelvic Nodes: Unremarkable. Miscellaneous:? There is a right inguinal hernia seen, which contains fat and nondilated small bowel.? A fat containing left inguinal hernia can be seen. ? Bones:? There is left proximal femur hardware.? Age-appropriate bony degenerative changes are seen.? ? IMPRESSION:? ? Negative for kidney stones or obstructive uropathy. ? Abnormal urinary bladder with bladder diverticuli, which contain stones. ? The previously seen mesenteric mass is no longer definitely seen. ? There is a very large hiatal hernia seen, which contains the majority of the stomach and the spleen. ? Bilateral inguinal hernias are seen, including a right inguinal hernia, which contains fat and nondilated small bowel. ? ? ? Additional findings:? AICD Subpleural fibrotic change with subpleural blebs Diverticulosis, without active diverticulitis Enlarged prostate Left proximal femur hardware is seen. ? ? Dictated by: Ulises Henriquez M.D. on 06/19/2022 at 9:40 ? ? Approved by: Ulises Henriquez M.D. on 06/19/2022 at 9:46 ? MDM Narrative Medical decision making narrative: Patient 86-year-old male history of smoking hyperlipidemia hypertension presenting today with left-sided flank pain be going in waves. It very difficult historian due to extreme hard of hearing. Blood work reassuring no leukocytosis no anemia, electrolytes within limits no sign of acute kidney injury. Also reviewed done per KUB possible kidney stone does not show any abnormality. Patient was given Toradol IV up and ambulating afterwards. He is not hypertensive. I have very low suspicion for dissection. He really is tender it is better when it is palpated this is more consistent with musculoskeletal pain. Discharge Plan Departure Patient Disposition: Home Clinical Impression: Back pain Instructions: DI for Low Back Pain Activity Restrictions/Additional Instructions: *You have been diagnosed with back pain *What to do: Increase activity as tolerated. Try heating pad and massage. *Continue to take medications as directed Tylenol 650 mg every 4-6 hours if needed for [id number] Ibuprofen 600 mg every 6 hours if needed for jacb-[id number] pain *Follow up with your primary care provider in 2-3 days or call [phone] *Return to ER if you should have increasing pain weakness difficulty urinating [or] any new, worsening or concerning symptoms Prescriptions: No Action carvedilol 3.125 mg tablet 3.125 mg PO BID Qty: 180 3RF Rx Instructions: must administer with a meal/food atorvastatin 40 mg tablet 40 mg PO BEDTIME Qty: 90 3RF clopidogrel 75 mg tablet 75 mg PO DAILY Qty: 90 3RF finasteride 5 mg tablet 5 mg PO DAILY Qty: 90 3RF tamsulosin 0.4 mg capsule 0.4 mg PO BEDTIME Qty: 90 3RF nitroglycerin [Nitrostat] 0.4 mg tablet, sublingual 0.4 mg Sublingual PRN PRN (Reason: chest pain) Qty: 2 3RF Disabled Parking permit See Rx Instructions .ROUTE .COMPLEX Qty: 1 0RF Rx Instructions: as directed acetaminophen 325 mg Tablet 650 mg PO Q6HR PRN (Reason: Fever/Mild Pain (1-3)) Qty: 60 0RF calcium carbonate [Calcium 600] 600 mg calcium (1,500 mg) Tablet 600 mg PO BID Qty: 60 0RF cholecalciferol (vitamin D3) 25 mcg (1,000 unit) Tablet 1,000 unit PO DAILY Qty: 30 0RF nicotine 21 mg/24 hr patch 24 hour 1 patch transdermal DAILY Qty: 28 0RF Referrals: Ike Castaneda DO [Primary Care Provider] - Stand Alone Forms: Patient Portal/API
[2022-06-19] MEDS: KETOROLAC 30 MG/ML VIAL IV (10:03)
[2022-06-19 10:04] LABS: Add Manual Diff / Slide Review NO; Basophils Absolute Auto 0 /uL (0-100); Basophils Percent Auto 0.3 % (0-2); Eosinophils Absolute Auto 700 /uL (0-450); Eosinophils Percent Auto 7.5 % (2-4); Hematocrit 47.4 % (41-53); Hemoglobin 15.8 g/dL (13.5-17.5); Lymphocytes Absolute Auto 1700 /uL (1100-4500); Lymphocytes Percent Auto 17.6 % (25-40); Mean Corpuscular HGB Conc 33.4 % (30-36); Mean Corpuscular Hemoglobin 33.3 PG (26-34); Mean Corpuscular Volume 99.8 fL (80-100); Monocytes Absolute Auto 600 /uL (0-900); Monocytes Percent Auto 6.7 % (3-14); Neutrophils Absolute Auto 6400 /uL (1500-7000); Neutrophils Percent Auto 67.9 % (50-75); Platelet Count 201 X10^3/uL (150-400); Red Blood Cell Count 4.75 X10^6/uL (4.5-5.9); Red Cell Distribution Width 14.3 % (11.6-14.8); White Blood Cell Count 9.4 X10^3/uL (4.5-11.0)
--- NOTE | 2022-06-19 10:08 | DI.CT.S_ITS ---
PROCEDURE: CT KIDNEY URETER BLADDER (KUB) INDICATIONS: left flank pain TECHNIQUE: Axial sections were acquired from the lung bases to the pubic symphysis. Coronal and sagittal reformats were performed. For radiation dose reduction, the following was used: automated exposure control, adjustment of mA and/or kV according to patient size. COMPARISON: [facility], CT, ABDOMEN/PELVIS WITH CONTRAST, 06/19/2015, 10:38. [facility], CT, ABDOMEN/PELVIS WITHOUT CONTRAS, 08/11/2015, 9:58. FINDINGS: Image quality: There is artifact associated with the metallic hardware. Artifact from the metallic hardware is reduced by metal reconstruction algorithm. Lung bases: Subpleural fibrotic change can be seen. There are few subpleural blebs seen. There is a very large hiatal hernia seen, which contains the majority of the stomach and the spleen. Heart: No significant findings. An AICD is seen. URINARY: Right Kidney: No stones or hydronephrosis. Right Ureter: No hydroureter. Left Kidney: No stones or hydronephrosis. Left Ureter: No hydroureter. Bladder: Normal wall thickness. Bilateral bladder diverticula can be seen. The diverticula contain stones. ABDOMEN: Liver: Unremarkable. Gallbladder: Unremarkable. Biliary ducts: Unremarkable. Pancreas: Unremarkable. Spleen: Unremarkable. Adrenal Glands: Unremarkable. Stomach and Bowel: Stomach, small bowel loops, and colon are unremarkable. Colonic diverticulosis is seen, without findings of active diverticulitis. Peritoneum: No abnormal intraperitoneal fluid. No free air. The previously seen mesenteric mass is no longer definitely seen. Ventral Wall: No hernia. Abdominal Nodes: No enlarged retroperitoneal or mesenteric lymph nodes. Vessels: Aorta and inferior vena cava are normal in size. Atherosclerotic calcification is noted. PELVIS: Pelvic Organs: An enlarged prostate is seen, measuring 6.2 cm transversely. Pelvic Nodes: Unremarkable. Miscellaneous: There is a right inguinal hernia seen, which contains fat and nondilated small bowel. A fat containing left inguinal hernia can be seen. Bones: There is left proximal femur hardware. Age-appropriate bony degenerative changes are seen. IMPRESSION: Negative for kidney stones or obstructive uropathy. Abnormal urinary bladder with bladder diverticuli, which contain stones. The previously seen mesenteric mass is no longer definitely seen. There is a very large hiatal hernia seen, which contains the majority of the stomach and the spleen. Bilateral inguinal hernias are seen, including a right inguinal hernia, which contains fat and nondilated small bowel. Additional findings: AICD Subpleural fibrotic change with subpleural blebs Diverticulosis, without active diverticulitis Enlarged prostate Left proximal femur hardware is seen. Dictated by: Ulises Henriquez M.D. on 06/19/2022 at 9:40 Approved by: Ulises Henriquez M.D. on 06/19/2022 at 9:46
[2022-06-19 10:10] LABS: Alanine Aminotransferase 29 IU/L (<50); Albumin 4.3 g/dL (3.5-5.0); Alkaline Phosphatase 91 U/L (38-126); Aspartate Aminotransferase 46 IU/L (17-59); BUN Creatinine Ratio 25.3 (6-22); Bilirubin Total 0.5 mg/dL (0.2-1.3); Blood Urea Nitrogen 20 mg/dL (9-20); Calcium 8.9 mg/dL (8.4-10.2); Carbon Dioxide 30 mmol/L (22-32); Chloride 99 mmol/L (98-107); Estimated Glomerular Filt Rate > 60 mL/min (>60); Globulin 4.1 g/dL (1.7-4.1); Glucose 113 mg/dL (80-110); HEMOLYSIS < 15 (0-50); Lipase 116 U/L (23-300); Potassium 4.4 mmol/L (3.4-5.1); Sodium 137 mmol/L (137-145); Total Protein 8.4 g/dL (6.3-8.2)
[2022-06-19 10:22] LABS: Bacteria Urine None Seen; Culture Indicated Urine Cult Not Indicated; RBC Urine None Seen (0-5/HPF); Squamous Epithelial Cell Urine None Seen (0-5/HPF); WBC Urine 0-1/HPF (0-5/HPF)
[2022-06-19 12:28] VITALS: BP 116/71; PULSE 74; RESP 12; O2SAT 96
== END 2022-06-19 12:29 | disposition home or self-care (01) ==
PROVIDERS: Emergency Provider Emergency Medicine; PCP Family Medicine
DX: M54.50 Low back pain, unspecified (principal)
CPT/HCPCS: 36415; 74176; 80053; 81003; 81015; 83690; 85025; 96374; 99284; J1885

== ENCOUNTER → 2022-12-07 08:55 | Outpatient (CLI) | payer MEDICARE, SELFPAY ==
[2022-12-07 09:38] LABS: Add Manual Diff / Slide Review NO; Basophils Absolute Auto 100 /uL (0-100); Basophils Percent Auto 0.7 % (0-2); Eosinophils Absolute Auto 600 /uL (0-450); Eosinophils Percent Auto 7.6 % (2-4); Hematocrit 44.6 % (41-53); Hemoglobin 15.2 g/dL (13.5-17.5); Lymphocytes Absolute Auto 1500 /uL (1100-4500); Lymphocytes Percent Auto 19.9 % (25-40); Mean Corpuscular HGB Conc 33.9 % (30-36); Mean Corpuscular Hemoglobin 33.7 PG (26-34); Mean Corpuscular Volume 99.4 fL (80-100); Monocytes Absolute Auto 600 /uL (0-900); Monocytes Percent Auto 7.4 % (3-14); Neutrophils Absolute Auto 4900 /uL (1500-7000); Neutrophils Percent Auto 64.4 % (50-75); Platelet Count 233 X10^3/uL (150-400); Red Blood Cell Count 4.49 X10^6/uL (4.5-5.9); Red Cell Distribution Width 14.6 % (11.6-14.8); White Blood Cell Count 7.6 X10^3/uL (4.5-11.0)
[2022-12-07 09:57] LABS: Alanine Aminotransferase 18 IU/L (<50); Albumin 3.9 g/dL (3.5-5.0); Albumin Globulin Ratio 1.1 (1.0-2.8); Alkaline Phosphatase 84 U/L (38-126); Aspartate Aminotransferase 34 IU/L (17-59); BUN Creatinine Ratio 21.6 (6-22); Bilirubin Total 0.5 mg/dL (0.2-1.3); Blood Urea Nitrogen 19 mg/dL (9-20); Calcium 8.8 mg/dL (8.4-10.2); Carbon Dioxide 30 mmol/L (22-32); Chloride 102 mmol/L (98-107); Cholesterol 197 mg/dL (140-199); Estimated Glomerular Filt Rate > 60 mL/min (>60); Globulin 3.5 g/dL (1.7-4.1); Glucose 86 mg/dL (80-110); HDL Cholesterol 51 mg/dL (40-60); HEMOLYSIS < 15 (0-50); LDL Cholesterol Calculated 115 mg/dL (<100); Potassium 4.3 mmol/L (3.4-5.1); Sodium 138 mmol/L (137-145); Total Protein 7.4 g/dL (6.3-8.2); Triglycerides 154 mg/dL (35-150)
[2022-12-07 10:28] LABS: TSH w/ Reflex to FT4 1.22 uIU/mL (0.47-4.68)
== END ==
PROVIDERS: PCP Family Medicine; Referring Provider Family Medicine; Visit Provider Family Medicine
DX: E78.2 Mixed hyperlipidemia (principal); I10 Essential (primary) hypertension; I25.10 Atherosclerotic heart disease of native coronary artery without angina pectoris
CPT/HCPCS: 36415; 80053; 80061; 84443; 85025

== ENCOUNTER → 2023-05-31 08:07 | Outpatient (CLI) | payer MEDICARE, SELFPAY ==
[2023-05-31 09:02] LABS: BUN Creatinine Ratio 18.8 (6-22); Blood Urea Nitrogen 15 mg/dL (9-20); Calcium 9.5 mg/dL (8.4-10.2); Carbon Dioxide 30 mmol/L (22-32); Chloride 96 mmol/L (98-107); Estimated Glomerular Filt Rate > 60 mL/min (>60); Glucose 101 mg/dL (80-110); HEMOLYSIS < 15 (0-50); Potassium 4.5 mmol/L (3.4-5.1); Sodium 134 mmol/L (137-145)
[2023-05-31 09:27] LABS: Thyroid Stimulating Hormone 1.77 uIU/mL (0.47-4.68)
== END ==
LOC: LAB 08:10
PROVIDERS: PCP Family Medicine; Referring Provider Internal Medicine Cardiovascular Disease; Visit Provider Internal Medicine Cardiovascular Disease
DX: I50.22 Chronic systolic (congestive) heart failure (principal); I48.0 Paroxysmal atrial fibrillation
CPT/HCPCS: 36415; 80048; 83735; 84443

== ENCOUNTER 2023-08-12 16:45 | Emergency (ER) | payer MEDICARE, SELFPAY ==
[2023-08-12 16:49] VITALS: BP 129/75; PULSE 83; RESP 18; TEMP 36.7; O2SAT 95
--- NOTE | 2023-08-12 18:17 | ED_ITS ---
HPI - Skin/Abscess/Foreign Bdy <Hannah Adams PA-C - Last Filed: 08/12/23 18:55> General Chief complaint: Skin/Abscess/Foreign Body Stated complaint: Painful Rash Time Seen by Provider: 08/12/23 17:02 Source: patient Mode of arrival: Ambulatory Limitations: no limitations History of Present Illness HPI narrative: 87-year-old male with possible dementia and extreme hearing impairment here today for a rash on his groin region. Uncertain when it appeared. He denies any burning or itching but was alarmed by the appearance and decided to come to the emergency department for evaluation. He is unable to offer any additional history at this time Related Data Previous Rx's Medication Instructions Recorded atorvastatin 40 mg tablet 40 mg PO BEDTIME #90 tabs 04/05/21 clopidogrel 75 mg tablet 75 mg PO DAILY #90 tabs 04/05/21 finasteride 5 mg tablet 5 mg PO DAILY #90 tabs 04/05/21 nitroglycerin 0.4 mg sublingual 0.4 mg sublingual PRN PRN chest 04/05/21 tablet (Nitrostat) pain ##2 tamsulosin 0.4 mg capsule 0.4 mg PO BEDTIME #90 caps 04/05/21 acetaminophen 325 mg tablet 650 mg (2 x 325 mg) PO Q6HR PRN 05/10/21 Fever/Mild Pain (1-3) #60 tabs calcium carbonate 600 mg calcium 600 mg PO BID #60 tabs 05/10/21 (1,500 mg) tablet (Calcium) cholecalciferol (vitamin D3) 25 1,000 unit PO DAILY #30 tabs 05/10/21 mcg (1,000 unit) tablet nicotine 21 mg/24 hr daily 1 patch transdermal DAILY #28 ea 05/10/21 transdermal patch Disabled Parking permit See Rx Instructions .Route 06/29/21 .COMPLEX #1 ea carvedilol 3.125 mg tablet 3.125 mg PO BID #180 tabs 11/17/21 clotrimazole 1 % topical cream 1 applic topical BID 4 weeks #45 08/12/23 grams Allergies Allergy/AdvReac Type Severity Reaction Status Date / Time Penicillins Allergy Unknown Verified 12/09/22 14:34 Review of Systems <Hannah Adams PA-C - Last Filed: 08/12/23 18:55> Review of Systems ROS Unobtainable: All systems reviewed & are unremarkable except as noted in HPI and below Patient History <Hannah Adams PA-C - Last Filed: 08/12/23 18:55> Medical History Benign non-nodular prostatic hyperplasia with lower urinary tract symptoms Coronary artery disease involving [place] coronary artery Essential hypertension Gout History of UTI Hyperglycemia Mixed hyperlipidemia Tobacco abuse UTI (urinary tract infection) Surgical History History of implantable cardiac defibrillator (ICD) History of permanent cardiac pacemaker placement Social History household members: none Smoking Status: Current every day smoker Smoking Status: Current every day smoker alcohol intake frequency: holidays/special occasions only Substance Use Type: does not use Exam <Hannah Adams PA-C - Last Filed: 08/12/23 18:55> Narrative Exam Narrative: GENERAL: Well-developed, well-nourished, appears stated age. In no acute distress HEAD: Atraumatic. Normocephalic. EYES: Pupils equal round and reactive. Extraocular motions intact. No scleral icterus. No injection or drainage. ENT: Nose without bleeding, purulent drainage. Airway patent. NECK: Trachea midline. Non tender RESPIRATORY: Respiratory rate and effort normal EXTREMITIES: No edema or joint tenderness. NEURO: AOx3. SKIN: Erythematous macerated rash on the inguinal region with scattered satellite lesions Initial Vital Signs Initial Vital Signs: Vital Signs Temperature 98.1 F 08/12/23 16:49 Pulse Rate 83 08/12/23 16:49 Respiratory Rate 18 08/12/23 16:49 Blood Pressure 129/75 08/12/23 16:49 Pulse Oximetry 95 08/12/23 16:49 Oxygen Delivery Method Room Air 08/12/23 16:49 <Cristiana Okeefe DO - Last Filed: 08/13/23 09:37> Initial Vital Signs Initial Vital Signs: Vital Signs Temperature 98.1 F 08/12/23 16:49 Pulse Rate 83 08/12/23 16:49 Respiratory Rate 18 08/12/23 16:49 Blood Pressure 129/75 04/13/24 16:49 Pulse Oximetry 95 08/12/23 16:49 Oxygen Delivery Method Room Air 08/12/23 16:49 Course <Hannah Adasm PA-C - Last Filed: 08/12/23 18:55> Vital Signs Vital signs: Vital Signs - 8 hr 08/12/23 16:49 Temperature 98.1 F Pulse Rate 83 Respiratory Rate 18 Blood Pressure 129/75 Pulse Oximetry 95 Oxygen Delivery Method Room Air <Cristiana Okeefe DO - Last Filed: 08/13/23 09:37> Vital Signs Vital signs: Vital Signs - 8 hr 08/12/23 16:49 Temperature 98.1 F Pulse Rate 83 Respiratory Rate 18 Blood Pressure 129/75 Pulse Oximetry 95 Oxygen Delivery Method Room Air MDM - Skin/Abscess/Foreign Bdy <Hannah Adams PA-C - Last Filed: 08/12/23 18:55> MDM Narrative Medical decision making narrative: Patient presents with a groin rash which is consistent with tinea cruris or jock itch. Patient has a very poor historian as a result of his extreme hearing impairment and possible dementia. He initially presented to the ED alone but we were able to contact his friend Benji who came to pick the patient up and was able to provide some more insight into the patient's possible dementia. His friend does not have any additional history on the groin rash. The appearance is consistent with tinea cruris so clotrimazole 1% was prescribed. Attempted to educate patient on keeping the area dry and changing his underwear frequently but he is extremely hard of hearing and did not appear to understand most of this education. Patient is otherwise stable for discharge home and his friend Benji will help patient to get to the pharmacy for his medication. Discharge Plan Departure Patient Disposition: Home Clinical Impression: Tinea cruris Instructions: Jock Itch Activity Restrictions/Additional Instructions: Thank you for choosing us to care for you today. Your rash is caused by a fungal infection also known as jock itch. You have been prescribed a cream to use twice daily for 4 weeks. You also need to pat the area dry after bathing and you may apply a drying powder such as gold cordero powder/baby powder. Please regularly change your underwear to a fresh and dry pair. If your rash is not improving after 4 weeks of using the cream please follow up with her primary care physician to discuss. Prescriptions: New clotrimazole 1 % cream 1 applic topical BID 28 Days Qty: 45 0RF No Action carvedilol 3.125 mg tablet 3.125 mg PO BID Qty: 180 3RF Rx Instructions: must administer with a meal/food atorvastatin 40 mg tablet 40 mg PO BEDTIME Qty: 90 3RF clopidogrel 75 mg tablet 75 mg PO DAILY Qty: 90 3RF finasteride 5 mg tablet 5 mg PO DAILY Qty: 90 3RF tamsulosin 0.4 mg capsule 0.4 mg PO BEDTIME Qty: 90 3RF nitroglycerin [Nitrostat] 0.4 mg tablet, sublingual 0.4 mg Sublingual PRN PRN (Reason: chest pain) Qty: 2 3RF Disabled Parking permit See Rx Instructions .ROUTE .COMPLEX Qty: 1 0RF Rx Instructions: as directed acetaminophen 325 mg Tablet 650 mg PO Q6HR PRN (Reason: Fever/Mild Pain (1-3)) Qty: 60 0RF calcium carbonate [Calcium 600] 600 mg calcium (1,500 mg) Tablet 600 mg PO BID Qty: 60 0RF cholecalciferol (vitamin D3) 25 mcg (1,000 unit) Tablet 1,000 unit PO DAILY Qty: 30 0RF nicotine 21 mg/24 hr patch 24 hour 1 patch transdermal DAILY Qty: 28 0RF Referrals: Ike Castaneda DO [Primary Care Provider] - Stand Alone Forms: Patient Portal/API ED Sign-out <Cristiana Okeefe DO - Last Filed: 08/13/23 09:37> Cosign ED Attending Manny Attestation: I was immediately available in the department for consultation.
[2023-08-12 19:00] VITALS: BP 126/74; PULSE 81; RESP 16; O2SAT 96
== END 2023-08-12 19:01 | disposition home or self-care (01) ==
PROVIDERS: Emergency Provider Physician Assistant; PCP Family Medicine
DX: B35.6 Tinea cruris (principal)
CPT/HCPCS: 99281

== ENCOUNTER 2023-08-18 12:41 | Emergency (ER) | payer OTHER, SELFPAY ==
[2023-08-18] VITALS (102 sets, daily range): BP systolic 66–131; BP diastolic 30–79; PULSE 75–207; RESP 14–47; TEMP 31.8–36.8; O2SAT 77–100
--- NOTE | 2023-08-18 12:49 | DI.RAD.S_ITS ---
PROCEDURE: XR CHEST 1V INDICATIONS: chest pain TECHNIQUE: One view of the chest was acquired. COMPARISON: [facility], CR, XR CHEST 2V, 04/05/2021, 17:40. FINDINGS: Surgical changes and devices: Pacemaker. Lungs and pleura: Chronic interstitial change. No pleural effusions or pneumothorax. Mediastinum: Mediastinal contours appear normal. Cardiomegaly. Large hiatal hernia. Bones and chest wall: No suspicious bony lesions. Overlying soft tissues appear unremarkable. IMPRESSION: 1. Cardiomegaly. 2. Chronic interstitial change. 3. Large hiatal hernia. Dictated by: Kedar Jarrett M.D. on 08/18/2023 at 14:15 Approved by: Kedar Jarrett M.D. on 08/18/2023 at 14:16
[2023-08-18 13:06] LABS: Add Manual Diff / Slide Review YES; Hematocrit 47.6 % (41-53); Mean Corpuscular HGB Conc 33.6 % (30-36); Mean Corpuscular Hemoglobin 33.6 PG (26-34); Mean Corpuscular Volume 100.3 fL (80-100); Platelet Count 198 X10^3/uL (150-400); Red Blood Cell Count 4.75 X10^6/uL (4.5-5.9); Red Cell Distribution Width 14.1 % (11.6-14.8); White Blood Cell Count 25.6 X10^3/uL (4.5-11.0)
[2023-08-18 13:11] LABS: INR 1.1 (0.9-1.3)
--- NOTE | 2023-08-18 13:11 | ED.AMS ---
HPI - Altered Mental Status General Chief Complaint: Chest Pain Stated Complaint: diarrhea, weakness Time Seen by Provider: 08/18/23 12:49 History of Present Illness HPI narrative: Patient 87-year-old male history of hyperlipidemia, hypertension, BPH, CAD with pacemaker, presenting today with vague complaint of generally not feeling well. Unable to provide much history but is not appear well. A friend dropped him off and also did not provide very much history. Patient was seen evaluated here diagnosed with tinea cruris, given cream and discharged home. Patient is found to be mottled hypotensive and hypothermic. Not having any chest pain appears to be breathing fast. Related Data Previous Rx's Medication Instructions Recorded atorvastatin 40 mg tablet 40 mg PO BEDTIME #90 tabs 04/05/21 clopidogrel 75 mg tablet 75 mg PO DAILY #90 tabs 04/05/21 finasteride 5 mg tablet 5 mg PO DAILY #90 tabs 04/05/21 nitroglycerin 0.4 mg sublingual 0.4 mg sublingual PRN PRN chest 04/05/21 tablet (Nitrostat) pain ##2 tamsulosin 0.4 mg capsule 0.4 mg PO BEDTIME #90 caps 04/05/21 acetaminophen 325 mg tablet 650 mg (2 x 325 mg) PO Q6HR PRN 05/10/21 Fever/Mild Pain (1-3) #60 tabs calcium carbonate 600 mg calcium 600 mg PO BID #60 tabs 05/10/21 (1,500 mg) tablet (Calcium) cholecalciferol (vitamin D3) 25 1,000 unit PO DAILY #30 tabs 05/10/21 mcg (1,000 unit) tablet nicotine 21 mg/24 hr daily 1 patch transdermal DAILY #28 ea 05/10/21 transdermal patch Disabled Parking permit See Rx Instructions .Route 06/29/21 .COMPLEX #1 ea carvedilol 3.125 mg tablet 3.125 mg PO BID #180 tabs 11/17/21 clotrimazole 1 % topical cream 1 applic topical BID 4 weeks #45 08/12/23 grams Allergies Allergy/AdvReac Type Severity Reaction Status Date / Time Penicillins Allergy Unknown Verified 12/09/22 14:34 Patient History Medical History Benign non-nodular prostatic hyperplasia with lower urinary tract symptoms Coronary artery disease involving [place] coronary artery Essential hypertension Gout History of UTI Hyperglycemia Mixed hyperlipidemia Tobacco abuse UTI (urinary tract infection) Surgical History History of implantable cardiac defibrillator (ICD) History of permanent cardiac pacemaker placement Social History household members: none Smoking Status: Current every day smoker Smoking Status: Current every day smoker alcohol intake frequency: holidays/special occasions only Substance Use Type: does not use Exam Initial Vital Signs Initial Vital Signs: Vital Signs Pulse Rate 115 H 08/18/23 12:49 Respiratory Rate 39 H 08/18/23 12:49 Pulse Oximetry 82 L 08/18/23 12:49 GENERAL: Elderly male appears in acute distress HEENT: Head atraumatic,EOMI, pupils reactive, face symmetric, moist mucous membranes CARDIOVASCULAR: Regular rate and rhythm without murmurs, rubs or gallops. RESPIRATORY: Tachypneic, Breath sounds equal bilaterally, no wheezes rales or rhonchi. ABDOMEN: Soft, nondistended no obvious tenderness EXTREMITIES: Normal range of motion, no clubbing or edema. Neurovascularly intact NEUROLOGICAL: Moving all extremities no facial droop SKIN: Cool and mottled lower extremities Procedures Central Line Placement Right IJ: MD Prep: mask, gown and gloves Central Line Prep: Chlorhexidine scrub and sterile drapes applied Local Anesthetic: lidocaine 1% Amount of anesthesia used (mL): 5 Ultrasound Used for Placement: Yes Central Line Lumen Inserted: triple Post Procedure: good blood return, all ports aspirated, flushed, capped, sterile dressing applied and line stabilization device Post Procedure X-Ray: tip of catheter in good position Course Orders Ordered: ED Orders 08/18/23 12:49 XR chest 1V Stat 08/18/23 12:52 Complete Blood Count AUTO DIFF Stat Comprehensive Metabolic Panel Stat Lactate (Lactic Acid) Stat Lipase Stat PTT Partial Thromboplastin Michelet Stat Prothrombin Time INR Stat Troponin & CK Cardiac Panel Stat 08/18/23 13:08 Blood Culture Stat 08/18/23 13:35 CT abdomen pelvis wo con Stat CT head/brain wo con Stat 08/18/23 15:15 UA Complete [Urinalysis and Microscopic] Stat Urine Culture Stat 08/18/23 15:56 XR chest 1V Stat 08/18/23 15:59 Complete Blood Count AUTO DIFF Stat Comprehensive Metabolic Panel Stat Discontinued Medications Sodium Chloride (Normal Saline 0.9%) 1,000 mls @ 150 mls/hr IV CONT JEREMY Last Infusion: 08/18/23 14:27 Dose: Infused Documented By: Admin: 08/18/23 13:26 Dose: 1,000 mls/hr Documented By: MARILYN Sodium Chloride (Normal Saline 0.9%) 1,000 mls @ 1,000 mls/hr IV BOLUS ONE Stop: 08/18/23 14:02 Last Infusion: 08/18/23 14:21 Dose: Infused Documented By: Admin: 08/18/23 13:30 Dose: 1,000 mls/hr Documented By: MARILYN Piperacillin Sod/Tazobactam (Sod 4.5 gm/ Sodium Chloride) 100 mls @ 200 mls/hr IV NOW ONE Stop: 08/18/23 13:13 Last Infusion: 08/18/23 14:45 Dose: Infused Documented By: Admin: 08/18/23 13:31 Dose: 200 mls/hr Documented By: MARILYN Vancomycin HCl (Vancomycin) 1,000 mg in 200 mls @ 200 mls/hr IV NOW ONE Stop: 08/18/23 14:11 Last Infusion: 08/18/23 16:05 Dose: Infused Documented By: Admin: 08/18/23 14:30 Dose: 200 mls/hr Documented By: MARILYN Lactated Ringer's (Lactated Ringers) 2,067 mls @ 689 mls/hr 30 ml/kg infuse over 3 hr (2067 ml) IV NOW ONE Stop: 08/18/23 16:50 Last Infusion: 08/18/23 17:37 Dose: Infused Documented By: Admin: 08/18/23 14:23 Dose: 689 mls/hr Documented By: MARILYN Lactated Ringer's (Lactated Ringers) 1,000 mls @ 125 mls/hr IV CONT JEREMY Last Admin: 08/18/23 17:41 Dose: 125 mls/hr Documented By: MARILYN Vital Signs Vital signs: Vital Signs - 8 hr 08/18/23 12:49 08/18/23 12:57 08/18/23 12:57 Temperature Pulse Rate 115 H 104 H Respiratory Rate 39 H 36 H Blood Pressure 118/74 Pulse Oximetry 82 L 77 L 08/18/23 13:00 08/18/23 13:01 08/18/23 13:01 Temperature 98.2 F Pulse Rate 104 H 104 H Respiratory Rate 32 H 35 H Blood Pressure 72/30 L Pulse Oximetry 82 L 88 L 08/18/23 13:03 08/18/23 13:03 08/18/23 13:06 Temperature Pulse Rate 100 H Respiratory Rate 36 H Blood Pressure 72/34 L 66/42 L Pulse Oximetry 87 L 08/18/23 13:06 08/18/23 13:11 08/18/23 13:11 Temperature 89.2 F L Pulse Rate 104 H 97 H Respiratory Rate 34 H 32 H Blood Pressure 69/49 L Pulse Oximetry 81 L 81 L 08/18/23 13:12 08/18/23 13:12 08/18/23 13:15 Temperature 90.9 F L 94.3 F L Pulse Rate 97 H 93 H Respiratory Rate 31 H 30 H Blood Pressure 78/47 L Pulse Oximetry 81 L 81 L 08/18/23 13:15 08/18/23 13:18 08/18/23 13:18 Temperature 95.9 F L Pulse Rate 87 Respiratory Rate 30 H Blood Pressure 76/48 L 83/57 L Pulse Oximetry 82 L 08/18/23 13:21 08/18/23 13:21 08/18/23 13:23 Temperature 96.8 F L 97.7 F Pulse Rate 89 106 H Respiratory Rate 30 H 40 H Blood Pressure 87/58 L Pulse Oximetry 81 L 08/18/23 13:27 08/18/23 13:27 08/18/23 13:30 Temperature 97.7 F Pulse Rate 92 H Respiratory Rate 27 H Blood Pressure 90/55 L 97/65 Pulse Oximetry 83 L 08/18/23 13:30 08/18/23 13:33 08/18/23 13:33 Temperature 97.9 F 98.1 F Pulse Rate 87 88 Respiratory Rate 30 H 27 H Blood Pressure 89/54 L Pulse Oximetry 88 L 82 L 08/18/23 13:53 08/18/23 13:54 08/18/23 14:00 Temperature 98.2 F 98.2 F 98.2 F Pulse Rate 95 H 80 80 Respiratory Rate 32 H 31 H 32 H Blood Pressure 110/62 Pulse Oximetry 08/18/23 14:00 08/18/23 14:04 08/18/23 14:04 Temperature 98.2 F Pulse Rate 84 Respiratory Rate 33 H Blood Pressure 86/56 L 95/79 Pulse Oximetry 98 08/18/23 14:06 08/18/23 14:06 08/18/23 14:09 Temperature 98.2 F 98.1 F Pulse Rate 82 81 Respiratory Rate 30 H 33 H Blood Pressure 99/51 L Pulse Oximetry 97 08/18/23 14:09 08/18/23 14:12 08/18/23 14:12 Temperature 98.1 F Pulse Rate 82 Respiratory Rate 28 H Blood Pressure 86/46 L 89/53 L Pulse Oximetry 08/18/23 14:19 08/18/23 14:19 08/18/23 14:21 Temperature 98.1 F Pulse Rate 116 H Respiratory Rate 37 H Blood Pressure 104/61 99/58 L Pulse Oximetry 08/18/23 14:21 08/18/23 14:24 08/18/23 14:24 Temperature 98.1 F 98.1 F Pulse Rate 82 79 Respiratory Rate 31 H 27 H Blood Pressure 97/53 L Pulse Oximetry 08/18/23 14:27 08/18/23 14:27 08/18/23 14:30 Temperature 98.1 F 98.2 F Pulse Rate 75 78 Respiratory Rate 31 H 38 H Blood Pressure 106/55 L Pulse Oximetry 08/18/23 14:30 08/18/23 14:33 08/18/23 14:33 Temperature Pulse Rate 80 Respiratory Rate 30 H Blood Pressure 98/50 L 104/52 L Pulse Oximetry 08/18/23 14:36 08/18/23 14:36 08/18/23 14:39 Temperature Pulse Rate 104 H Respiratory Rate 30 H Blood Pressure 123/63 101/57 L Pulse Oximetry 08/18/23 14:39 08/18/23 14:42 08/18/23 14:42 Temperature Pulse Rate 79 79 Respiratory Rate 30 H 31 H Blood Pressure 94/54 L Pulse Oximetry 08/18/23 14:45 08/18/23 14:45 08/18/23 14:48 Temperature Pulse Rate 83 Respiratory Rate 31 H Blood Pressure 98/56 L 124/67 Pulse Oximetry 08/18/23 14:48 08/18/23 14:52 08/18/23 14:52 Temperature Pulse Rate 80 104 H Respiratory Rate 27 H 36 H Blood Pressure 104/53 L Pulse Oximetry 08/18/23 14:54 08/18/23 14:54 08/18/23 14:57 Temperature Pulse Rate 98 H 92 H Respiratory Rate 32 H 32 H Blood Pressure 97/52 L Pulse Oximetry 08/18/23 14:57 08/18/23 15:00 08/18/23 15:01 Temperature Pulse Rate 91 H Respiratory Rate 35 H Blood Pressure 102/52 L 123/51 L Pulse Oximetry 08/18/23 15:01 08/18/23 15:04 08/18/23 15:04 Temperature Pulse Rate 88 207 H Respiratory Rate 28 H 33 H Blood Pressure 125/58 L Pulse Oximetry 08/18/23 15:06 08/18/23 15:06 08/18/23 15:10 Temperature Pulse Rate 147 H 84 Respiratory Rate 35 H 27 H Blood Pressure 112/51 L Pulse Oximetry 08/18/23 15:10 08/18/23 15:11 08/18/23 15:12 Temperature Pulse Rate 140 H Respiratory Rate 27 H Blood Pressure 88/51 L 104/51 L Pulse Oximetry 08/18/23 15:12 08/18/23 15:15 08/18/23 15:15 Temperature Pulse Rate 99 H 81 Respiratory Rate 24 28 H Blood Pressure 96/54 L Pulse Oximetry 08/18/23 15:18 08/18/23 15:18 08/18/23 15:21 Temperature Pulse Rate 92 H Respiratory Rate 25 H Blood Pressure 114/51 L 94/51 L Pulse Oximetry 08/18/23 15:21 08/18/23 15:24 08/18/23 15:24 Temperature Pulse Rate 97 H 83 Respiratory Rate 29 H 33 H Blood Pressure 97/53 L Pulse Oximetry 08/18/23 15:27 08/18/23 15:27 08/18/23 15:30 Temperature Pulse Rate 81 128 H Respiratory Rate 31 H 33 H Blood Pressure 96/51 L Pulse Oximetry 97 97 08/18/23 15:30 08/18/23 15:33 08/18/23 15:33 Temperature Pulse Rate 84 Respiratory Rate 40 H Blood Pressure 105/55 L 100/65 Pulse Oximetry 96 08/18/23 15:36 08/18/23 15:36 08/18/23 15:40 Temperature Pulse Rate 79 Respiratory Rate 32 H Blood Pressure 91/53 L 101/62 Pulse Oximetry 97 08/18/23 15:40 08/18/23 15:42 08/18/23 15:42 Temperature Pulse Rate 86 88 Respiratory Rate 36 H 38 H Blood Pressure 96/55 L Pulse Oximetry 98 96 08/18/23 15:46 08/18/23 15:46 08/18/23 15:48 Temperature Pulse Rate 88 83 Respiratory Rate 34 H 27 H Blood Pressure 99/55 L Pulse Oximetry 96 99 08/18/23 15:48 08/18/23 15:51 08/18/23 15:51 Temperature Pulse Rate 84 Respiratory Rate 30 H Blood Pressure 94/56 L 91/50 L Pulse Oximetry 100 08/18/23 15:54 08/18/23 15:54 08/18/23 15:57 Temperature Pulse Rate 81 Respiratory Rate 30 H Blood Pressure 93/55 L 112/53 L Pulse Oximetry 97 08/18/23 15:57 08/18/23 16:00 08/18/23 16:00 Temperature Pulse Rate 84 83 Respiratory Rate 29 H 30 H Blood Pressure 103/55 L Pulse Oximetry 98 97 08/18/23 16:03 08/18/23 16:03 08/18/23 16:06 Temperature Pulse Rate 83 83 Respiratory Rate 30 H 28 H Blood Pressure 102/52 L Pulse Oximetry 98 98 08/18/23 16:06 08/18/23 16:09 08/18/23 16:09 Temperature Pulse Rate 106 H Respiratory Rate 14 Blood Pressure 107/60 105/59 L Pulse Oximetry 98 08/18/23 16:12 08/18/23 16:12 08/18/23 16:15 Temperature Pulse Rate 90 81 Respiratory Rate 39 H 27 H Blood Pressure 114/57 L Pulse Oximetry 97 96 08/18/23 16:15 08/18/23 16:18 08/18/23 16:18 Temperature Pulse Rate 86 Respiratory Rate Blood Pressure 108/54 L 108/58 L Pulse Oximetry 97 08/18/23 16:22 08/18/23 16:22 08/18/23 16:24 Temperature Pulse Rate 94 H Respiratory Rate Blood Pressure 115/56 L 107/57 L Pulse Oximetry 96 08/18/23 16:24 08/18/23 16:27 08/18/23 16:27 Temperature Pulse Rate 93 H 100 H Respiratory Rate Blood Pressure 99/58 L Pulse Oximetry 96 96 08/18/23 16:30 08/18/23 16:31 08/18/23 16:31 Temperature Pulse Rate 117 H 118 H Respiratory Rate Blood Pressure 105/55 L Pulse Oximetry 96 96 08/18/23 16:33 08/18/23 16:33 08/18/23 16:36 Temperature Pulse Rate 153 H Respiratory Rate Blood Pressure 104/69 112/59 L Pulse Oximetry 97 08/18/23 16:36 08/18/23 16:39 08/18/23 16:39 Temperature Pulse Rate 124 H 91 H Respiratory Rate 27 H 29 H Blood Pressure 86/49 L Pulse Oximetry 96 96 08/18/23 16:42 08/18/23 16:42 08/18/23 16:45 Temperature Pulse Rate 91 H Respiratory Rate 27 H Blood Pressure 89/52 L 85/46 L Pulse Oximetry 96 08/18/23 16:45 08/18/23 16:48 08/18/23 16:48 Temperature Pulse Rate 95 H 84 Respiratory Rate 30 H 30 H Blood Pressure 98/53 L Pulse Oximetry 96 96 08/18/23 16:51 08/18/23 16:51 08/18/23 16:54 Temperature Pulse Rate 84 90 Respiratory Rate 27 H 28 H Blood Pressure 108/59 L Pulse Oximetry 96 95 08/18/23 16:54 08/18/23 16:57 08/18/23 16:57 Temperature Pulse Rate 92 H Respiratory Rate 35 H Blood Pressure 109/55 L 115/61 Pulse Oximetry 95 08/18/23 17:00 08/18/23 17:00 08/18/23 17:03 Temperature Pulse Rate 86 Respiratory Rate 27 H Blood Pressure 104/55 L 105/57 L Pulse Oximetry 96 08/18/23 17:03 08/18/23 17:06 08/18/23 17:06 Temperature Pulse Rate 88 90 Respiratory Rate 28 H 29 H Blood Pressure 131/59 L Pulse Oximetry 96 96 08/18/23 17:10 08/18/23 17:10 08/18/23 17:13 Temperature Pulse Rate 93 H Respiratory Rate 30 H Blood Pressure 112/62 109/58 L Pulse Oximetry 97 08/18/23 17:13 08/18/23 17:15 08/18/23 17:15 Temperature Pulse Rate 92 H 95 H Respiratory Rate 28 H 26 H Blood Pressure 109/58 L Pulse Oximetry 96 96 08/18/23 17:18 08/18/23 17:18 08/18/23 17:21 Temperature Pulse Rate 86 Respiratory Rate 25 H Blood Pressure 106/55 L 115/58 L Pulse Oximetry 96 08/18/23 17:21 08/18/23 17:24 08/18/23 17:24 Temperature Pulse Rate 88 88 Respiratory Rate 31 H 28 H Blood Pressure 106/51 L Pulse Oximetry 96 96 08/18/23 17:27 08/18/23 17:27 08/18/23 17:30 Temperature Pulse Rate 88 Respiratory Rate 33 H Blood Pressure 98/56 L 112/59 L Pulse Oximetry 97 08/18/23 17:30 08/18/23 17:33 08/18/23 17:33 Temperature Pulse Rate 88 85 Respiratory Rate 32 H 28 H Blood Pressure 107/60 Pulse Oximetry 95 96 08/18/23 17:36 08/18/23 17:36 08/18/23 17:39 Temperature Pulse Rate 88 90 Respiratory Rate 41 H 32 H Blood Pressure 113/55 L Pulse Oximetry 96 95 08/18/23 17:39 08/18/23 17:42 08/18/23 17:42 Temperature Pulse Rate 98 H Respiratory Rate 31 H Blood Pressure 109/55 L 121/53 L Pulse Oximetry 95 08/18/23 17:45 08/18/23 17:45 08/18/23 17:48 Temperature Pulse Rate 93 H Respiratory Rate 31 H Blood Pressure 118/63 105/57 L Pulse Oximetry 96 08/18/23 17:48 08/18/23 17:51 08/18/23 17:51 Temperature Pulse Rate 88 87 Respiratory Rate 30 H 32 H Blood Pressure 113/56 L Pulse Oximetry 96 95 08/18/23 17:54 08/18/23 17:54 08/18/23 17:58 Temperature Pulse Rate 93 H Respiratory Rate 47 H Blood Pressure 97/54 L 101/52 L Pulse Oximetry 94 08/18/23 17:58 08/18/23 18:00 08/18/23 18:01 Temperature Pulse Rate 102 H 100 H Respiratory Rate 35 H 33 H Blood Pressure 106/52 L Pulse Oximetry 94 94 08/18/23 18:01 08/18/23 18:20 08/18/23 18:20 Temperature Pulse Rate 98 H 96 H Respiratory Rate 38 H 30 H Blood Pressure 113/55 L Pulse Oximetry 94 96 MDM - Altered Mental Status Lab Data 08/18/23 15:59 08/18/23 15:59 Labs: Lab Results 08/18/23 08/18/23 08/18/23 Range/Units 12:52 15:15 15:59 WBC 25.6 H 25.3 H (4.5-11.0) X10^3/uL RBC 4.75 3.97 L (4.5-5.9) X10^6/uL Hgb 16.0 13.1 L (13.5-17.5) g/dL Hct 47.6 39.3 L (41-53) % MCV 100.3 H 99.0 (80-100) fL MCH 33.6 32.9 (26-34) PG MCHC 33.6 33.2 (30-36) % RDW 14.1 14.0 (11.6-14.8) % Plt Count 198 170 (150-400) X10^3/uL Neut % (Auto) Not Reportable Not Reportable Lymph % (Auto) Not Reportable Not Reportable [place] % (Auto) Not Reportable Not Reportable Eos % (Auto) Not Reportable Not Reportable Baso % (Auto) Not Reportable Not Reportable Lymph # (Auto) Not Reportable Not Reportable [place] # (Auto) Not Reportable Not Reportable Baso # (Auto) Not Reportable Not Reportable Total Counted 100 100 Seg Neutrophils % 89.0 H 90.0 H (38-70) % Lymphocytes % (Manual) 7.0 L 4.0 L (25-45) % Monocytes % (Manual) 4.0 6.0 (2-11) % Neutrophils # (Manual) 74600 H 20158 H (4886-8909) /uL RBC Morphology Normal morphology Normal morphology PT 13.0 H (9.4-12.5) SECONDS INR 1.1 (0.9-1.3) APTT 28 (25.1-36.5) SECONDS Sodium 134 L 133 L (137-145) mmol/L Potassium 4.6 5.2 H (3.4-5.1) mmol/L Chloride 100 106 (98-107) mmol/L Carbon Dioxide 11 L 14 L (22-32) mmol/L BUN 148 H* 134 H* (9-20) mg/dL Creatinine 8.76 H* 7.19 H (0.66-1.25) mg/dL Estimated GFR 5 L 7 L (>60) mL/min BUN/Creatinine Ratio 16.9 18.6 (6-22) Glucose 136 H 134 H (80-110) mg/dL Lactate 6.6 H* 2.1 (0.7-2.1) mmol/L Calcium 8.7 7.5 L (8.4-10.2) mg/dL Total Bilirubin 0.8 0.7 (0.2-1.3) mg/dL AST 78 H 56 (17-59) IU/L ALT 44 30 (<50) IU/L Alkaline Phosphatase 86 66 (38-126) U/L Total Creatine Kinase 565 H (55-170) U/L Troponin I 0.069 H (0.01-0.034) ng/mL Total Protein 7.3 5.8 L (6.3-8.2) g/dL Albumin 3.9 2.9 L (3.5-5.0) g/dL Globulin 3.4 2.9 (1.7-4.1) g/dL Albumin/Globulin Ratio 1.1 1.0 (1.0-2.8) Lipase 60 (23-300) U/L Urine Color Red Urine Appearance Turbid Urine pH 5.5 (4.5-8.0) Ur Specific [place] 1.025 (1.000-1.035) Urine Protein 2+ H (Negative) Urine Glucose (UA) Negative (Negative) g/dL Urine Ketones Negative (NEGATIVE) Urine Occult Blood 3+ H (Negative) Urine Nitrate Positive H (Negative) Urine Bilirubin Negative (NEGATIVE) Urine Urobilinogen 0.2 (0.2) E.U./dL Ur Leukocyte Esterase 1+ H (NEGATIVE) Urine RBC >100/hpf H (0-5/HPF) Urine WBC 5-10/hpf H (0-5/HPF) Ur Squamous Epith Cells 0-1 /hpf (0-5/HPF) Urine Bacteria Moderate (10-30) H (None) Urine Mucus 2+ H (Negative) Ur Culture Indicated? Specimen cultured Vol Urine Centrifuged 10ml (spun) Imaging Data Chest x-ray: Radiologist's Impression: PROCEDURE: XR CHEST 1V INDICATIONS: chest pain TECHNIQUE: One view of the chest was acquired. COMPARISON: [facility], CR, XR CHEST 2V, 04/05/2021, 17:40. FINDINGS: Surgical changes and devices: Pacemaker. Lungs and pleura: Chronic interstitial change. No pleural effusions or pneumothorax. Mediastinum: Mediastinal contours appear normal. Cardiomegaly. Large hiatal hernia. Bones and chest wall: No suspicious bony lesions. Overlying soft tissues appear unremarkable. IMPRESSION: 1. Cardiomegaly. 2. Chronic interstitial change. 3. Large hiatal hernia. Dictated by: Kedar Jarrett M.D. on 08/18/2023 at 14:1 CT scan - abdomen/pelvis: Radiologist's Impression: PROCEDURE: CT ABDOMEN PELVIS WO CON INDICATIONS: renal failure hypotensive TECHNIQUE: Axial sections were acquired from the lung bases to the pubic symphysis. Coronal and sagittal reformats were performed. For radiation dose reduction, the following was used: automated exposure control, adjustment of mA and/or kV according to patient size. COMPARISON: [facility], CT, CT KIDNEY URETER BLADDER (KUB), 06/19/2022, 10:15. [facility], CT, ABDOMEN/PELVIS WITHOUT CONTRAS, 08/11/2015, 9:58. FINDINGS: Image quality: Diagnostic. Lower Chest: No significant findings. URINARY: Right Kidney: [id number] right hydronephrosis and hydroureter. Question stone at the right ureterovesical junction. Right Ureter: Moderate hydroureter. Left Kidney: Moderate hydronephrosis. Left Ureter: Moderate hydroureter. Bladder: Markedly distended bladder with large bilateral bladder diverticuli containing stones. A Iverson catheter has been dilated. A Iverson catheter has been inflated in the prostatic urethra. The prostate is quite enlarged. ABDOMEN: Liver: No contour-deforming solid mass. Gallbladder: No radiopaque gallstones or wall thickening. Biliary ducts: No biliary dilation. Pancreas: No ductal dilation. Spleen: Size is within normal limits. Spleen is also contained in the hernia. Adrenal Glands: No adrenal nodules. Stomach and Bowel: Large hiatal hernia with organo-axial gastric volvulus, a chronic condition in this patient. That being said, there is focal thickening along the wall of the stomach within the hernia. Consider possible gastritis or even infiltrative malignant process. Normal colonic caliber, without significant wall thickening. Peritoneum: No abnormal intraperitoneal fluid. No free air. Ventral Wall: No hernia. Abdominal Nodes: No enlarged retroperitoneal or mesenteric lymph nodes. Vessels: Aorta and inferior vena cava are normal in size. PELVIS: Pelvic Organs: Prostate is quite enlarged. A Iverson catheter has been inflated in the prostatic urethra. Pelvic Nodes: Unremarkable. Miscellaneous: No inguinal hernias are seen. Bones: Lumbar degenerative change. No lytic or blastic bony lesions. No compression fractures. IMPRESSION: 1. Markedly enlarged prostate. 2. Iverson catheter balloon has been inflated in the prostatic urethra. Recommend careful repositioning. 3. Markedly distended bladder consistent with bladder outlet obstruction. This contains bilateral large bladder diverticuli containing stones. There may potentially also be a stone at the right ureterovesical junction. 4. There is moderate bilateral hydronephrosis and hydroureter. 5. Large hiatal hernia with chronic organo-axial volvulus of the stomach. The stomach has focal thickened distal body/antrum. Direct visualization on a nonemergent basis is suggested if this has not been performed. 6. The hernia also contains bowel and spleen. Comment: Consider reimaging tomorrow after successfully placing a Iverson catheter today. Additional comment: Consider nonemergent endoscopic evaluation of the stomach. Dictated by: Kedar Jarrett M.D. on 08/18/2023 at 15:00 CT scan - head: Radiologist's Impression: PROCEDURE: CT HEAD/BRAIN WO CON INDICATIONS: confusion TECHNIQUE: Noncontrast 4.5 mm thick angled axial sections acquired from the foramen magnum to the vertex, with coronal and sagittal reformats. For radiation dose reduction, the following was used: automated exposure control, adjustment of mA and/or kV according to patient size. COMPARISON: None. FINDINGS: Image quality: Diagnostic. CSF spaces: Basal cisterns are patent. No extra-axial fluid collections. The ventricles are symmetric in size and shape. Brain: No intracranial bleeds or masses. There is cerebral volume loss for age, with resultant ventricular and sulcal prominence. There are periventricular and deep white matter chronic small vessel ischemic changes. There is intracranial internal carotid artery atherosclerosis. Skull and face: Calvarium and visualized facial bones appear intact, without suspicious lesions. Sinuses: Visualized sinuses and mastoids are clear. IMPRESSION: No acute intracranial pathology. Dictated by: Kedar Jarrett M.D. on 08/18/2023 at 14:38 CXR: Radiologist's Impression: PROCEDURE: XR CHEST 1V INDICATIONS: central placement TECHNIQUE: One view of the chest was acquired. COMPARISON: [facility], , XR CHEST 1V, 08/18/2023, 13:18. FINDINGS: Surgical changes and devices: Left-sided central venous catheter is present distal tip projecting over the mid SVC. Pacemaker is present. Lungs and pleura: Lungs are clear. No pleural effusions or pneumothorax. Mediastinum: Mediastinal contours appear normal. Heart size is enlarged. Bones and chest wall: No suspicious bony lesions. Overlying soft tissues appear unremarkable. IMPRESSION: Right-sided central venous catheter overlying mid SVC. Dictated by: Sophie Ny M.D. on 08/18/2023 at 16:5 ECG Data Attestation: I personally reviewed and interpreted this ECG as follows: Interpretation: Paced rhythm artifact noted rate 130 MD interval 172 QRS 118 QTC 506 no ischemic changes Treatment and disposition Social Determinants of Health that impact treatment or disposition: Son lives in [place] Code Status and discussions:: Full Shared decision making:: With son MDM Narrative Medical decision making narrative: MDM CC: Weakness Complicating co-morbidities: BPH hyperlipidemia hypertension Corroborating data: Spoke with son, who states that patient is noncompliant with medication. Data collected from: [ ] Medical records reviewed: [ ] Differential considered: Septic shock, dissection, acute coronary disease, Exam documented above, pertinent findings include: Mottled lower extremities appears uncomfortable tachypneic without difficulty breathing Lab Test results independently reviewed as above. Pertinent findings: WBC 25.6, hemoglobin 16.0, hematocrit 47.6, platelets 198, PT 13, INR 1.1, PTT 28, sodium 134, potassium 4.6 with repeat 5.2, chloride 100, bicarb 03/03/2014, BUN 148 with repeat 134, creatinine 8.76 with repeat 7.19, lactate 6.6 with repeat 2.1, bilirubin 0.8, AST 7.8, ALT 44, alk-phos 86, troponin 0.069 Independently reviewed EKG as above: No ischemic changes Imaging studies independently reviewed: Chest x-ray cardiomegaly, head CT no acute intracranial pathology, CT abdomen pelvis, shows enlarged prostate Iverson catheter positioned in the prosthetic urethra, bilateral hydronephrosis hydroureter markedly distended bladder with bladder outlet obstruction, large hiatal hernia with chronic volvulus Consultations: Dr. Alston, rocket assembly operator at [place] updated patient's symptoms test results recommend trial off Levophed. Treatments: Sepsis fluids, Zosyn, vanc, central line placed for Levophed Re-evaluations: Iverson catheter was repositioned 2 L of urine returned and then got grossly bloody was manually irrigated and continues to flow. Blood work is improving creatinine is improving. He is still requiring Levophed despite having a couple trials without it. Discussion: Patient presents with increased weakness found to have bladder outlet obstruction and post renal failure. He is also septic shock requiring Levophed while he continues to have IV fluids. He has been given antibiotics. He overall appears much better blood work has improved. Troponin is indeterminate suspect this is from renal failure. No evidence of ischemia not having any sort of chest pain We do not have Urology or Nephrology available hospital and patient needs to be transferred for higher level of care Dr. Alston accepts patient Critical Care Time Critical Care Time Critical Care Time: Yes Total Critical Care Time: 62 Attestation: The high probability of a clinically significant, sudden or life threatening deterioration of the [cardiovascular] system(s) required my full and direct attention, intervention and personal management. The aggregate critical care time was 62 minutes. This time is in addition to time spent performing reported procedures but includes the following: [x] Data Review and interpretation [x] Patient assessment and monitoring of vital signs [x] Documentation [x] Medication orders and management Discharge Plan Departure Patient Disposition: [facility] Clinical Impression: Septic shock, Acute renal failure due to urinary obstruction, Acute urinary retention Prescriptions: No Action carvedilol 3.125 mg tablet 3.125 mg PO BID Qty: 180 3RF Rx Instructions: must administer with a meal/food atorvastatin 40 mg tablet 40 mg PO BEDTIME Qty: 90 3RF clopidogrel 75 mg tablet 75 mg PO DAILY Qty: 90 3RF finasteride 5 mg tablet 5 mg PO DAILY Qty: 90 3RF tamsulosin 0.4 mg capsule 0.4 mg PO BEDTIME Qty: 90 3RF nitroglycerin [Nitrostat] 0.4 mg tablet, sublingual 0.4 mg Sublingual PRN PRN (Reason: chest pain) Qty: 2 3RF Disabled Parking permit See Rx Instructions .ROUTE .COMPLEX Qty: 1 0RF Rx Instructions: as directed clotrimazole 1 % cream 1 applic topical BID 28 Days Qty: 45 0RF acetaminophen 325 mg Tablet 650 mg PO Q6HR PRN (Reason: Fever/Mild Pain (1-3)) Qty: 60 0RF calcium carbonate [Calcium 600] 600 mg calcium (1,500 mg) Tablet 600 mg PO BID Qty: 60 0RF cholecalciferol (vitamin D3) 25 mcg (1,000 unit) Tablet 1,000 unit PO DAILY Qty: 30 0RF nicotine 21 mg/24 hr patch 24 hour 1 patch transdermal DAILY Qty: 28 0RF Referrals: Ike Castaneda, [Primary Care Provider] -
[2023-08-18 13:13] LABS: PTT Partial Thromboplastin Tim 28 SECONDS (25.1-36.5)
[2023-08-18 13:17] LABS: Albumin 3.9 g/dL (3.5-5.0); Albumin Globulin Ratio 1.1 (1.0-2.8); Alkaline Phosphatase 86 U/L (38-126); Aspartate Aminotransferase 78 IU/L (17-59); Bilirubin Total 0.8 mg/dL (0.2-1.3); Calcium 8.7 mg/dL (8.4-10.2); Carbon Dioxide 11 mmol/L (22-32); Chloride 100 mmol/L (98-107); Creatine Kinase 565 U/L (55-170); Estimated Glomerular Filt Rate 5 mL/min (>60); Globulin 3.4 g/dL (1.7-4.1); Glucose 136 mg/dL (80-110); HEMOLYSIS 24 (0-50); Lipase 60 U/L (23-300); Potassium 4.6 mmol/L (3.4-5.1); Sodium 134 mmol/L (137-145); Total Protein 7.3 g/dL (6.3-8.2)
[2023-08-18 13:18] LABS: Lactate (Lactic Acid) 6.6 mmol/L (0.7-2.1); Neutrophils Absolute Manual 22784 /uL (3000-5900); RBC Morphology Normal Morphology; Total Cells Counted 100
[2023-08-18 13:24] LABS: BUN Creatinine Ratio 16.9 (6-22)
[2023-08-18 13:25] LABS: Alanine Aminotransferase 44 IU/L (<50)
[2023-08-18 13:26] LABS: Blood Urea Nitrogen 148 mg/dL (9-20)
[2023-08-18] MEDS: SODIUM CHLORIDE 0.9% 1,000 ML 1000 ML IV ×2 (13:26→13:30)
[2023-08-18 13:28] LABS: Troponin I 0.069 ng/mL (0.01-0.034)
[2023-08-18] MEDS: NOREPINEPHRINE BITARTRATE/D5W 4 MG/250 ML PLAST..BAG 25.8 MG IV (13:31)
[2023-08-18] MEDS: PIPERACILLIN/TAZO 4.5 GM in SODIUM CHLORIDE 0.9% 100 ML IV (13:31)
--- NOTE | 2023-08-18 13:35 | DI.CT.S_ITS ---
PROCEDURE: CT HEAD/BRAIN WO CON INDICATIONS: confusion TECHNIQUE: Noncontrast 4.5 mm thick angled axial sections acquired from the foramen magnum to the vertex, with coronal and sagittal reformats. For radiation dose reduction, the following was used: automated exposure control, adjustment of mA and/or kV according to patient size. COMPARISON: None. FINDINGS: Image quality: Diagnostic. CSF spaces: Basal cisterns are patent. No extra-axial fluid collections. The ventricles are symmetric in size and shape. Brain: No intracranial bleeds or masses. There is cerebral volume loss for age, with resultant ventricular and sulcal prominence. There are periventricular and deep white matter chronic small vessel ischemic changes. There is intracranial internal carotid artery atherosclerosis. Skull and face: Calvarium and visualized facial bones appear intact, without suspicious lesions. Sinuses: Visualized sinuses and mastoids are clear. IMPRESSION: No acute intracranial pathology. Dictated by: Kedar Jarrett M.D. on 08/18/2023 at 14:38 Approved by: Kedar Jarrett M.D. on 08/18/2023 at 14:38
--- NOTE | 2023-08-18 13:35 | DI.CT.S_ITS ---
PROCEDURE: CT ABDOMEN PELVIS WO CON INDICATIONS: renal failure hypotensive TECHNIQUE: Axial sections were acquired from the lung bases to the pubic symphysis. Coronal and sagittal reformats were performed. For radiation dose reduction, the following was used: automated exposure control, adjustment of mA and/or kV according to patient size. COMPARISON: [facility], CT, CT KIDNEY URETER BLADDER (KUB), 06/19/2022, 10:15. [facility], CT, ABDOMEN/PELVIS WITHOUT CONTRAS, 08/11/2015, 9:58. FINDINGS: Image quality: Diagnostic. Lower Chest: No significant findings. URINARY: Right Kidney: [id number] right hydronephrosis and hydroureter. Question stone at the right ureterovesical junction. Right Ureter: Moderate hydroureter. Left Kidney: Moderate hydronephrosis. Left Ureter: Moderate hydroureter. Bladder: Markedly distended bladder with large bilateral bladder diverticuli containing stones. A Iverson catheter has been dilated. A Iverson catheter has been inflated in the prostatic urethra. The prostate is quite enlarged. ABDOMEN: Liver: No contour-deforming solid mass. Gallbladder: No radiopaque gallstones or wall thickening. Biliary ducts: No biliary dilation. Pancreas: No ductal dilation. Spleen: Size is within normal limits. Spleen is also contained in the hernia. Adrenal Glands: No adrenal nodules. Stomach and Bowel: Large hiatal hernia with organo-axial gastric volvulus, a chronic condition in this patient. That being said, there is focal thickening along the wall of the stomach within the hernia. Consider possible gastritis or even infiltrative malignant process. Normal colonic caliber, without significant wall thickening. Peritoneum: No abnormal intraperitoneal fluid. No free air. Ventral Wall: No hernia. Abdominal Nodes: No enlarged retroperitoneal or mesenteric lymph nodes. Vessels: Aorta and inferior vena cava are normal in size. PELVIS: Pelvic Organs: Prostate is quite enlarged. A Iverson catheter has been inflated in the prostatic urethra. Pelvic Nodes: Unremarkable. Miscellaneous: No inguinal hernias are seen. Bones: Lumbar degenerative change. No lytic or blastic bony lesions. No compression fractures. IMPRESSION: 1. Markedly enlarged prostate. 2. Iverson catheter balloon has been inflated in the prostatic urethra. Recommend careful repositioning. 3. Markedly distended bladder consistent with bladder outlet obstruction. This contains bilateral large bladder diverticuli containing stones. There may potentially also be a stone at the right ureterovesical junction. 4. There is moderate bilateral hydronephrosis and hydroureter. 5. Large hiatal hernia with chronic organo-axial volvulus of the stomach. The stomach has focal thickened distal body/antrum. Direct visualization on a nonemergent basis is suggested if this has not been performed. 6. The hernia also contains bowel and spleen. Comment: Consider reimaging tomorrow after successfully placing a Iverson catheter today. Additional comment: Consider nonemergent endoscopic evaluation of the stomach. Dictated by: Kedar Jarrett M.D. on 08/18/2023 at 15:00 Approved by: Kedar Jarrett M.D. on 08/18/2023 at 15:07
--- NOTE | 2023-08-18 13:53 | PC.NURSE ---
patient came into the ER by friends car. Friend stated that he has had diarrhea and made a turn for the worst. Patient is alert to verbal but has some dimentia at baseline according to a RN report from a few days ago. He was tachypnaec at 40 on arrival into room 1. His legs were mottled and his skin cool to touch and yellowish in appearance. His O2 sat was unknown due to inability to get a pulse ox reading.
[2023-08-18] MEDS: LACTATED RINGERS 689 ML IV (14:23)
[2023-08-18] MEDS: VANCOMYCIN 1,000 MG/200 ML PIGGYBACK 200 MG IV (14:30)
[2023-08-18 14:35] LABS: Reflexed Lactate in 2 Hours Y
--- NOTE | 2023-08-18 14:45 | PC.NURSE ---
patient urinary cath is obstructed. only blood in the inlet. Cath to be exchanged for a 24fr [address] way israel.
--- NOTE | 2023-08-18 15:18 | PC.NURSE ---
after several attemps to place israel, 24fr too large for urethral meatus. 18fr coude 10cc [address] Immediately retrieved 2110mls came out. urine was dark brown for 2000mls then rest was dark red. Patient was getting cold irrigation into the temp sensing [place] so we stopped charting Core temp. Temp sensing israel was replaced at approx 1424.
[2023-08-18 15:39] LABS: Bilirubin Urine UA NEGATIVE (NEGATIVE); Glucose Urine UA NEGATIVE (Negative); Ketones Urine UA NEGATIVE (NEGATIVE); Leukocyte Esterase Urine UA 1+ (NEGATIVE); Nitrite Urine UA POSITIVE (Negative); Occult Blood Urine UA 3+ (Negative); Protein Urine UA 2+ (Negative); Specific Gravity Urine UA 1.025 (1.000-1.035); Urobilinogen Urine UA 0.2 E.U./dL (0.2); pH Urine UA 5.5 (4.5-8.0)
[2023-08-18 15:56] LABS: Appearance Urine UA TURBID; Color Urine UA RED
--- NOTE | 2023-08-18 15:56 | DI.RAD.S_ITS ---
PROCEDURE: XR CHEST 1V INDICATIONS: central placement TECHNIQUE: One view of the chest was acquired. COMPARISON: [facility], CR, XR CHEST 1V, 08/18/2023, 13:18. FINDINGS: Surgical changes and devices: Left-sided central venous catheter is present distal tip projecting over the mid SVC. Pacemaker is present. Lungs and pleura: Lungs are clear. No pleural effusions or pneumothorax. Mediastinum: Mediastinal contours appear normal. Heart size is enlarged. Bones and chest wall: No suspicious bony lesions. Overlying soft tissues appear unremarkable. IMPRESSION: Right-sided central venous catheter overlying mid SVC. Dictated by: Sophie Ny M.D. on 08/18/2023 at 16:50 Approved by: Sophie Ny M.D. on 08/18/2023 at 16:50
[2023-08-18 15:57] LABS: Bacteria Urine Moderate (10-30); Culture Indicated Urine Specimen Cultured; Mucus Urine 2+ (Negative); RBC Urine >100/HPF (0-5/HPF); Squamous Epithelial Cell Urine 0-1 /HPF (0-5/HPF); Urine Volume 10mL (spun); WBC Urine 5-10/HPF (0-5/HPF)
[2023-08-18 16:11] LABS: Add Manual Diff / Slide Review YES; Hematocrit 39.3 % (41-53); Hemoglobin 13.1 g/dL (13.5-17.5); Mean Corpuscular HGB Conc 33.2 % (30-36); Mean Corpuscular Hemoglobin 32.9 PG (26-34); Platelet Count 170 X10^3/uL (150-400); Red Blood Cell Count 3.97 X10^6/uL (4.5-5.9); White Blood Cell Count 25.3 X10^3/uL (4.5-11.0)
--- NOTE | 2023-08-18 16:20 | PC.NURSE ---
patient was decreased in supp o2 from 4L down to 2L. His 02 saturation is 97%.
[2023-08-18 16:25] LABS: Alanine Aminotransferase 30 IU/L (<50); Albumin 2.9 g/dL (3.5-5.0); Alkaline Phosphatase 66 U/L (38-126); Aspartate Aminotransferase 56 IU/L (17-59); Bilirubin Total 0.7 mg/dL (0.2-1.3); Calcium 7.5 mg/dL (8.4-10.2); Carbon Dioxide 14 mmol/L (22-32); Chloride 106 mmol/L (98-107); Estimated Glomerular Filt Rate 7 mL/min (>60); Globulin 2.9 g/dL (1.7-4.1); Glucose 134 mg/dL (80-110); Lactate 2HR (Lactic Acid Rflx) 2.1 mmol/L (0.7-2.1); Neutrophils Absolute Manual 22770 /uL (3000-5900); Potassium 5.2 mmol/L (3.4-5.1); RBC Morphology Normal Morphology; Sodium 133 mmol/L (137-145); Total Cells Counted 100; Total Protein 5.8 g/dL (6.3-8.2)
[2023-08-18 16:31] LABS: HEMOLYSIS 22 (0-50)
[2023-08-18 16:43] LABS: BUN Creatinine Ratio 18.6 (6-22)
[2023-08-18 16:44] LABS: Blood Urea Nitrogen 134 mg/dL (9-20)
--- NOTE | 2023-08-18 16:48 | PC.NURSE ---
Levofed was paused for 4 (Q3min) cycles of blood pressure and his Bp trended down to a map of 62. The patent was placed on Levofed @ 0.2 mcg/kg/hr. He is more alert was drowsy.
--- NOTE | 2023-08-18 17:07 | PC.NURSE ---
Initial israel was placed by another nurse when the patient arrived under Urgent conditions. That cathetor was found to have been placed into the prostatic urethra and was removed and replaced after the CT scan. The new israel is patent and has been draining well. Patient is making clear pink urine now.
[2023-08-18] MEDS: LACTATED RINGERS 1,000 ML 125 ML IV (17:41)
--- NOTE | 2023-08-18 18:24 | PC.NURSE ---
patient pulled out his left a/c IV. His wound was dressed and the patient was changed and a new brief was placed. He is still making clear brown colored urine.
--- NOTE | 2023-08-18 18:31 | PC.NURSE ---
patient's IV norepi was stopped as a trial again and his systolic pressure dropped to mid 70s. The norepi was started again. Pressure improved again.
--- NOTE | 2023-08-18 18:51 | PC.NURSE ---
no code status has been established or is on file for the stay but on arrival he stated that he just wants to live. So he was treated as a full code while here.
== END 2023-08-18 19:24 | disposition short-term general hospital (02) ==
PROVIDERS: Emergency Provider Emergency Medicine; PCP Family Medicine
DX: N17.9 Acute kidney failure, unspecified (principal); R65.21 Severe sepsis with septic shock; N13.9 Obstructive and reflux uropathy, unspecified; R33.8 Other retention of urine; R07.9 Chest pain, unspecified
CPT/HCPCS: 36415; 36569; 70450; 71045; 74176; 80053; 81001; 82550; 83605; 83690; 84484; 85007; 85025; 85610; 85730; 87040; 87086; 93005; 96365; 96366; 96367; 99284; 99291; J2543

== ENCOUNTER 2023-10-01 19:40 | Emergency (ER) | payer OTHER, SELFPAY ==
[2023-10-01] VITALS (15 sets, daily range): BP systolic 85–124; BP diastolic 54–79; PULSE 69–90; RESP 18; TEMP 36.8; O2SAT 91–98; BMI 20.7
--- NOTE | 2023-10-01 19:53 | ED.GENADULT ---
HPI - General Adult General Chief complaint: Urogenital-Male Stated complaint: Catheter issue Time Seen by Provider: 10/01/23 19:41 Source: EMS Mode of arrival: EMS Limitations: other (Dementia) History of Present Illness HPI narrative: Patient is an 87-year-old male. Has an indwelling Iverson catheter. And also reports he has a history of dementia. Unsure why exactly he is the urinary catheter in place although he does have BPH listed on his problem list. He is here for evaluation of potential problems with the urinary catheter. Apparently there has been some blood around the tip of the meatus. Per report the catheter that is currently in place has been there for approximately 1 week. The patient is unable to provide any HPI or review of systems. Related Data Previous Rx's Medication Instructions Recorded atorvastatin 40 mg tablet 40 mg PO BEDTIME #90 tabs 04/05/21 clopidogrel 75 mg tablet 75 mg PO DAILY #90 tabs 04/05/21 finasteride 5 mg tablet 5 mg PO DAILY #90 tabs 04/05/21 nitroglycerin 0.4 mg sublingual 0.4 mg sublingual PRN PRN chest 04/05/21 tablet (Nitrostat) pain ##2 tamsulosin 0.4 mg capsule 0.4 mg PO BEDTIME #90 caps 04/05/21 acetaminophen 325 mg tablet 650 mg (2 x 325 mg) PO Q6HR PRN 05/10/21 Fever/Mild Pain (1-3) #60 tabs calcium carbonate 600 mg calcium 600 mg PO BID #60 tabs 05/10/21 (1,500 mg) tablet (Calcium) cholecalciferol (vitamin D3) 25 1,000 unit PO DAILY #30 tabs 05/10/21 mcg (1,000 unit) tablet nicotine 21 mg/24 hr daily 1 patch transdermal DAILY #28 ea 05/10/21 transdermal patch Disabled Parking permit See Rx Instructions .Route 06/29/21 .COMPLEX #1 ea carvedilol 3.125 mg tablet 3.125 mg PO BID #180 tabs 11/17/21 Allergies Allergy/AdvReac Type Severity Reaction Status Date / Time Penicillins Allergy Unknown Verified 10/01/23 19:47 Review of Systems Review of Systems ROS Unobtainable: Unobtainable due to mental condition Patient History Medical History History of UTI Essential hypertension Mixed hyperlipidemia Coronary artery disease involving [place] coronary artery Benign non-nodular prostatic hyperplasia with lower urinary tract symptoms Tobacco abuse Gout Hyperglycemia UTI (urinary tract infection) Surgical History History of implantable cardiac defibrillator (ICD) History of permanent cardiac pacemaker placement Social History household members: none Smoking Status: Current every day smoker Smoking Status: Current every day smoker alcohol intake frequency: holidays/special occasions only Substance Use Type: does not use Exam Initial Vital Signs Initial Vital Signs: Vital Signs Temperature 98.2 F 10/01/23 19:41 Pulse Rate 81 10/01/23 19:41 Respiratory Rate 18 10/01/23 19:41 Blood Pressure 119/63 10/01/23 19:41 Pulse Oximetry 97 10/01/23 19:41 Oxygen Delivery Method Room Air 10/01/23 19:41 GI Inspection: normal to inspection and non-distended Other: No apparent discomfort with palpation of the abdomen Other: Normal external male genitalia. There was no blood noted at the meatus. The Iverson catheter is in place. Extrem Other: No gross deformities Course Vital Signs Vital signs: Vital Signs - 8 hr 10/01/23 19:41 10/01/23 19:43 10/01/23 19:43 Temperature 98.2 F Pulse Rate 81 82 Respiratory Rate 18 Blood Pressure 119/63 119/63 Pulse Oximetry 97 97 Oxygen Delivery Method Room Air 10/01/23 20:00 10/01/23 20:01 10/01/23 20:01 Temperature Pulse Rate 90 86 Respiratory Rate Blood Pressure 124/79 Pulse Oximetry 98 96 Oxygen Delivery Method 10/01/23 20:30 10/01/23 20:30 10/01/23 20:36 Temperature Pulse Rate 79 Respiratory Rate Blood Pressure 98/57 L 92/55 L Pulse Oximetry 92 Oxygen Delivery Method 10/01/23 20:36 10/01/23 20:46 10/01/23 20:46 Temperature Pulse Rate 82 79 Respiratory Rate Blood Pressure 98/55 L Pulse Oximetry 92 93 Oxygen Delivery Method 10/01/23 21:00 10/01/23 21:00 10/01/23 21:30 Temperature Pulse Rate 78 Respiratory Rate Blood Pressure 98/57 L 112/55 L Pulse Oximetry 92 Oxygen Delivery Method 10/01/23 21:30 10/01/23 22:00 10/01/23 22:00 Temperature Pulse Rate 78 74 Respiratory Rate Blood Pressure 98/54 L Pulse Oximetry 91 96 Oxygen Delivery Method 10/01/23 22:30 10/01/23 22:30 10/01/23 22:32 Temperature Pulse Rate 69 79 Respiratory Rate Blood Pressure 85/54 L Pulse Oximetry 94 92 Oxygen Delivery Method 10/01/23 22:33 10/01/23 23:00 10/01/23 23:30 Temperature Pulse Rate Respiratory Rate Blood Pressure 94/54 L 102/57 L 105/65 Pulse Oximetry Oxygen Delivery Method Medical Decision Making MDM Narrative Medical decision making narrative: Initially we were unable to flush the catheter. The catheter that was in place was removed and a new 1 was placed without issue. Afterwards patient had greater than 1 L of urine come from the catheter. He became much less agitated. His abdomen remained soft. He did fall asleep afterwards. We attempted to contact the individual home with the lives however we were unable to reach this individual. We did talk to other family members he stated that his director of nursing normally goes to sleep very early and potentially would not be able to be reached until morning. The indication for admission to the hospital for further workup here in the ER as the catheter is now draining appropriately. Continue to attempt to contact his director of nursing and patient can be discharged back home. Discharge Plan Departure Patient Disposition: Home Clinical Impression: Acute urinary retention, Complication of Iverson catheter Instructions: How to Care for Your Iverson Catheter -- Male Activity Restrictions/Additional Instructions: Patient can continue to take all of his medications as directed. Keep all of his scheduled medical appointments. Return to the emergency department for new or worsening symptoms. Prescriptions: No Action carvedilol 3.125 mg tablet 3.125 mg PO BID Qty: 180 3RF Rx Instructions: must administer with a meal/food atorvastatin 40 mg tablet 40 mg PO BEDTIME Qty: 90 3RF clopidogrel 75 mg tablet 75 mg PO DAILY Qty: 90 3RF finasteride 5 mg tablet 5 mg PO DAILY Qty: 90 3RF tamsulosin 0.4 mg capsule 0.4 mg PO BEDTIME Qty: 90 3RF nitroglycerin [Nitrostat] 0.4 mg tablet, sublingual 0.4 mg Sublingual PRN PRN (Reason: chest pain) Qty: 2 3RF Disabled Parking permit See Rx Instructions .ROUTE .COMPLEX Qty: 1 0RF Rx Instructions: as directed acetaminophen 325 mg Tablet 650 mg PO Q6HR PRN (Reason: Fever/Mild Pain (1-3)) Qty: 60 0RF calcium carbonate [Calcium 600] 600 mg calcium (1,500 mg) Tablet 600 mg PO BID Qty: 60 0RF cholecalciferol (vitamin D3) 25 mcg (1,000 unit) Tablet 1,000 unit PO DAILY Qty: 30 0RF nicotine 21 mg/24 hr patch 24 hour 1 patch transdermal DAILY Qty: 28 0RF Referrals: Ike Castaneda, [Primary Care Provider] - Stand Alone Forms: Patient Portal/API
--- NOTE | 2023-10-01 20:55 | PC.NURSE ---
called and left voice message for emergency contact Benji Sheppard to call hospital back. no details given. called and spoke with Adair, person to notify (son) who directed call to patient's other son, All Canela about living situation for patient. All called and said Benji is in fact the person who is currently living with patient and taking care of him. All states that Benji phone number is the only number he knows but Benji does usually go to bed super early and wakes up between [phone]. he should at least get voice message by morning and be able to sweet pickle maker the patient by then. All states Benji does not live far from the hospital off [address] provider made aware of situation.
[2023-10-02 03:04] VITALS: BP 88/53; O2SAT 92
[2023-10-02 07:35] VITALS: BP 95/54
[2023-10-02 07:36] VITALS: BP 93/53; PULSE 67; O2SAT 96
[2023-10-02 07:43] VITALS: RESP 18
== END 2023-10-02 08:05 | disposition home or self-care (01) ==
PROVIDERS: Emergency Provider Emergency Medicine; PCP Family Medicine
DX: R33.8 Other retention of urine (principal); T83.9XXA Unspecified complication of genitourinary prosthetic device, implant and graft, initial encounter
CPT/HCPCS: 99283

== ENCOUNTER 2023-10-10 06:37 | Emergency (ER) | payer OTHER, SELFPAY ==
[2023-10-10 07:01] VITALS: BP 99/59; PULSE 69; RESP 17; TEMP 36.6; O2SAT 96
--- NOTE | 2023-10-10 07:06 | PC.NURSE ---
New catheter drainage bag applied. Patient has a 14 kyrgyz catheter placed prior to arrival. Provided izabella care and took off wet undergarments, provided with paper scrubs for bottoms.
--- NOTE | 2023-10-10 07:11 | ED_ITS ---
HPI - Male Genitourinary General Chief complaint: Urogenital-Male Stated complaint: catheter came out Time Seen by Provider: 10/10/23 06:46 Source: patient, RN notes reviewed and old records reviewed Mode of arrival: Ambulatory History of Present Illness HPI Narrative: 87-year-old history of CAD, hypertension, dyslipidemia, chronic urinary retention, pacemaker/AICD, gout, dementia who was brought by his friend Benji because his catheter bag had fallen off catheter. Patient states Benji is in charge of things. Catheter was in place there was urine that had come from the catheter but the drainage bag was missing. Patient himself does not have any other complaints. He denies any pain, no chest pain, no shortness of breath, no nausea or vomiting. He denies any abdominal back or flank pain. He denies any issues with bowel movements or urination. He has not really able to give much past medical history. He has a reported allergy to penicillin. No reported tobacco, alcohol or recreational drugs. Patient states that his friend Benji keeps track of his medications and provide them for him. Related Data Previous Rx's Medication Instructions Recorded atorvastatin 40 mg tablet 40 mg PO BEDTIME #90 tabs 04/05/21 clopidogrel 75 mg tablet 75 mg PO DAILY #90 tabs 04/05/21 finasteride 5 mg tablet 5 mg PO DAILY #90 tabs 04/05/21 nitroglycerin 0.4 mg sublingual 0.4 mg sublingual PRN PRN chest 04/05/21 tablet (Nitrostat) pain ##2 tamsulosin 0.4 mg capsule 0.4 mg PO BEDTIME #90 caps 04/05/21 acetaminophen 325 mg tablet 650 mg (2 x 325 mg) PO Q6HR PRN 05/10/21 Fever/Mild Pain (1-3) #60 tabs calcium carbonate (Calcium 600) 600 mg PO BID #60 tabs 05/10/21 cholecalciferol (vitamin D3) 25 1,000 unit PO DAILY #30 tabs 05/10/21 mcg (1,000 unit) tablet nicotine 21 mg/24 hr daily 1 patch transdermal DAILY #28 ea 05/10/21 transdermal patch Disabled Parking permit See Rx Instructions .Route 06/29/21 .COMPLEX #1 ea carvedilol 3.125 mg tablet 3.125 mg PO BID #180 tabs 11/17/21 Allergies Allergy/AdvReac Type Severity Reaction Status Date / Time Penicillins Allergy Unknown Verified 10/01/23 19:47 Review of Systems Review of Systems ROS Unobtainable: All systems reviewed & are unremarkable except as noted in HPI and below Patient History Medical History History of UTI Essential hypertension Mixed hyperlipidemia Coronary artery disease involving [place] coronary artery Benign non-nodular prostatic hyperplasia with lower urinary tract symptoms Tobacco abuse Gout Hyperglycemia UTI (urinary tract infection) Surgical History History of permanent cardiac pacemaker placement History of implantable cardiac defibrillator (ICD) Social History household members: none Smoking Status: Current every day smoker Smoking Status: Current every day smoker alcohol intake frequency: holidays/special occasions only Substance Use Type: does not use Exam Narrative Exam Narrative: GENERAL: Alert and oriented self and location, well-appearing elderly male. Patient is hard of hearing but conversant. HEENT: Head normocephalic, atraumatic, EOMI, pupils reactive, face symmetric, moist mucous membranes NECK: Supple, full range of motion CARDIOVASCULAR: Regular rate and rhythm without murmurs, rubs or gallops. RESPIRATORY: Breath sounds equal bilaterally, no wheezes rales or rhonchi. ABDOMEN: Soft, nontender. Normoactive bowel sounds all 4 quadrants. No guarding or rebound, rigidity, no mass : No CVA tenderness. Male: normal external examination, no penile discharge or lesions, testicles non-tender, cremasteric reflex intact, no inguinal hernias noted. Patient has Iverson catheter in place. EXTREMITIES: Normal range of motion, no clubbing or edema. Neurovascularly intact NEUROLOGICAL: Cranial nerves II through XII grossly intact. Moving all extremities SKIN: Warm, dry, no petechiae, no rashes or lesions. Initial Vital Signs Initial Vital Signs: Vital Signs Temperature 97.9 F 10/10/23 07:01 Pulse Rate 69 10/10/23 07:01 Respiratory Rate 17 10/10/23 07:01 Blood Pressure 99/59 L 10/10/23 07:01 Pulse Oximetry 96 10/10/23 07:01 Oxygen Delivery Method Room Air 10/10/23 07:01 Course Vital Signs Vital signs: Vital Signs - 8 hr 10/10/23 07:01 Temperature 97.9 F Pulse Rate 69 Respiratory Rate 17 Blood Pressure 99/59 L Pulse Oximetry 96 Oxygen Delivery Method Room Air MDM - Male Genitourinary MDM Narrative Medical decision making narrative: 87-year-old male with chronic indwelling Iverson catheter, patient's drainage bag and become from the catheter. He is noted to have a blood pressure 99/59, prior visits earlier in September and July show pressures in the 100 range to 90 range frequently. Patient has no other complaints. Catheter appears to be draining appropriately. Plan for discharge home. Discharge Plan Departure Patient Disposition: Home Clinical Impression: Malfunction of Iverson catheter Activity Restrictions/Additional Instructions: Please follow-up as needed. The bag from your Iverson catheter appears to have become detached. This was replaced and appears to be draining appropriately. Please return for fevers, new abdominal pain, back or flank pain, vomiting, if there was no urine draining through the Iverson catheter or other new or concerning changes. Prescriptions: No Action carvedilol 3.125 mg tablet 3.125 mg PO BID Qty: 180 3RF Rx Instructions: must administer with a meal/food atorvastatin 40 mg tablet 40 mg PO BEDTIME Qty: 90 3RF clopidogrel 75 mg tablet 75 mg PO DAILY Qty: 90 3RF finasteride 5 mg tablet 5 mg PO DAILY Qty: 90 3RF tamsulosin 0.4 mg capsule 0.4 mg PO BEDTIME Qty: 90 3RF nitroglycerin [Nitrostat] 0.4 mg tablet, sublingual 0.4 mg Sublingual PRN PRN (Reason: chest pain) Qty: 2 3RF Disabled Parking permit See Rx Instructions .ROUTE .COMPLEX Qty: 1 0RF Rx Instructions: as directed acetaminophen 325 mg Tablet 650 mg PO Q6HR PRN (Reason: Fever/Mild Pain (1-3)) Qty: 60 0RF calcium carbonate [Calcium 600] 600 mg calcium (1,500 mg) Tablet 600 mg PO BID Qty: 60 0RF cholecalciferol (vitamin D3) 25 mcg (1,000 unit) Tablet 1,000 unit PO DAILY Qty: 30 0RF nicotine 21 mg/24 hr patch 24 hour 1 patch transdermal DAILY Qty: 28 0RF Referrals: Ike Castaneda, DO [Primary Care Provider] - Stand Alone Forms: Patient Portal/API
--- NOTE | 2023-10-10 07:20 | PC.NURSE ---
PT deneis having any pain, abdominal pain, or constipation. States he doesnt know why his friend Benji brought him here. and that Benji handles all the paperwork. New catheter bag in place, no dependant loops.
[2023-10-10 08:02] VITALS: BP 98/57; PULSE 64; RESP 18; O2SAT 96
--- NOTE | 2023-10-10 08:44 | PC.NURSE ---
I called Benji, Pt's friend/caregiver and updated him on pt's status and being ready for discharge. Benji states he will be in to [facility] patient around 0900.
[2023-10-10 09:03] VITALS: BP 93/63; PULSE 88; RESP 16; O2SAT 98
== END 2023-10-10 09:04 | disposition home or self-care (01) ==
PROVIDERS: Emergency Provider Emergency Medicine; PCP Family Medicine
DX: T83.011A Breakdown (mechanical) of indwelling urethral catheter, initial encounter (principal)
CPT/HCPCS: 51798; 99282

== ENCOUNTER → 2023-10-26 16:45 | Outpatient (CLI) | payer MEDICARE, SELFPAY | PROVIDERS: PCP Family Medicine; Visit Provider Urology | DX: N40.1 Benign prostatic hyperplasia with lower urinary tract symptoms (principal) | CPT/HCPCS: 87077; 87086; 87147; 87186 ==

== ENCOUNTER 2023-11-14 05:30 | Emergency (ER) | payer OTHER, SELFPAY ==
[2023-11-14 05:47] VITALS: BP 126/71; PULSE 76; RESP 16; TEMP 35.8; O2SAT 95
--- NOTE | 2023-11-14 06:09 | ED.GENADULT ---
HPI - General Adult General Chief complaint: Urogenital-Male Stated complaint: pulled catheter out Time Seen by Provider: 11/14/23 06:09 Source: patient Mode of arrival: Wheelchair History of Present Illness HPI narrative: 87-year-old gentleman with a history of cognitive decline, coronary artery disease, hyperlipidemia and BPH with acute urinary retention and Iverson catheter route he is accidentally pulled out a number of times. Dropped off by a friend this morning and he was unable to explain why he was here. After contact in the friend it turns out he again pulled out his Iverson catheter. He is 400 cc in his bladder. Review of records indicate he was seen in the urology office on October 25 for catheter exchange without complication. Related Data Home Medications Medication Instructions Recorded Confirmed melatonin PO 10/12/23 10/26/23 quetiapine 25 mg tablet 25 mg PO BEDTIME 10/12/23 10/26/23 sennosides [Senna Lax] PO 10/12/23 10/26/23 Previous Rx's Medication Instructions Recorded atorvastatin 40 mg tablet 40 mg PO BEDTIME #90 tabs 04/05/21 clopidogrel 75 mg tablet 75 mg PO DAILY #90 tabs 04/05/21 finasteride 5 mg tablet 5 mg PO DAILY #90 tabs 04/05/21 nitroglycerin 0.4 mg sublingual 0.4 mg sublingual PRN PRN chest 04/05/21 tablet (Nitrostat) pain ##2 tamsulosin 0.4 mg capsule 0.4 mg PO BEDTIME #90 caps 04/05/21 acetaminophen 325 mg tablet 650 mg (2 x 325 mg) PO Q6HR PRN 05/10/21 Fever/Mild Pain (1-3) #60 tabs cholecalciferol (vitamin D3) 25 1,000 unit PO DAILY #30 tabs 05/10/21 mcg (1,000 unit) tablet Disabled Parking permit See Rx Instructions .Route 06/29/21 .COMPLEX #1 ea Allergies Allergy/AdvReac Type Severity Reaction Status Date / Time Penicillins Allergy Unknown Verified 10/26/23 15:25 Review of Systems Review of Systems ROS Unobtainable: Unobtainable due to medical condition Patient History Medical History Elevated serum creatinine Cognitive decline History of UTI Essential hypertension Mixed hyperlipidemia Coronary artery disease involving [place] coronary artery Benign non-nodular prostatic hyperplasia with lower urinary tract symptoms Tobacco abuse Gout Hyperglycemia UTI (urinary tract infection) Surgical History History of permanent cardiac pacemaker placement History of implantable cardiac defibrillator (ICD) Social History household members: none Smoking Status: Current every day smoker Smoking Status: Current every day smoker alcohol intake frequency: holidays/special occasions only Substance Use Type: does not use Exam Initial Vital Signs Initial Vital Signs: Vital Signs Temperature 96.5 F L 11/14/23 05:47 Pulse Rate 76 11/14/23 05:47 Respiratory Rate 16 11/14/23 05:47 Blood Pressure 126/71 11/14/23 05:47 Pulse Oximetry 95 11/14/23 05:47 Oxygen Delivery Method Room Air 11/14/23 05:47 General: Alert appropriate in no acute distress Respiratory: Able to speak in full sentences, no obvious respiratory distress Skin: No obvious rashes, warm and dry Neurologic: Grossly intact no obvious asymmetries or abnormalities Psych: Pleasantly demented, not currently oriented to person time and place Course Vital Signs Vital signs: Vital Signs - 8 hr 11/14/23 05:47 Temperature 96.5 F L Pulse Rate 76 Respiratory Rate 16 Blood Pressure 126/71 Pulse Oximetry 95 Oxygen Delivery Method Room Air Medical Decision Making [facility] Narrative Medical decision making narrative: CC: BPH with LUTS with indwelling Iverson catheter most recently exchanged October 25. Accidentally removed by patient today Complicating co-morbidities: Significant dementia Data collected from: Medical records. We did end up calling his friend that drop more often left without additional details Social determinants of health that may influence the patients condition: Significant dementia Medical records reviewed: Recent urology note is reviewed Differential considered: Iverson catheter removed accidentally, Iverson catheter removed intentionally, no longer needing Iverson catheter, acute urinary retention Exam documented above, pertinent findings include: Pleasantly demented 400 cc in his bladder remainder of exam is benign Treatments: Nursing staff attempted to replace a 20 [place] as he had removed. Were unable to advance it beyond proximally cm. Switch to an 18 [place] coude and I placed it. There was a bit of restriction at approximately 1 cm and then approximately 3 cm in the urethra no difficulty passing through the prostate. Free urine flow return with no blood or signs of infection. Discussion: 87-year-old gentleman with significant dementia, forgets why he has a catheter in place on has a occasionally pulled out accidentally. Such was the case this morning. We are unable to replace a 20 [place] but a 18 [place] coude went in with a moderate amount of difficulty. Patient will be discharged home with instructions to follow up in approximately a month with Dr. Coats is office for routine catheter change. Discharge Plan Departure Patient Disposition: Home Clinical Impression: BPH w urinary obs/LUTS Iverson catheter problem Qualifiers: Encounter type: initial encounter Qualified Code(s): T83.9XXA - Unspecified complication of genitourinary prosthetic device, implant and graft, initial encounter Instructions: How to Care for Your Iverson Catheter -- Male Activity Restrictions/Additional Instructions: Your catheter was replaced today. On October 25 a 20 [place] coude catheter was placed. Today we had difficulty with that size so an 18 [place] coude is placed. Please schedule an appointment on or about December [address] Coats, the urologist to have the catheter exchanged. If you find that you are getting worse or develop any new symptoms, please feel free to return to the emergency department for further evaluation. Prescriptions: No Action sennosides [Senna Lax] PO melatonin PO quetiapine 25 mg tablet 25 mg PO BEDTIME atorvastatin 40 mg tablet 40 mg PO BEDTIME Qty: 90 3RF clopidogrel 75 mg tablet 75 mg PO DAILY Qty: 90 3RF finasteride 5 mg tablet 5 mg PO DAILY Qty: 90 3RF tamsulosin 0.4 mg capsule 0.4 mg PO BEDTIME Qty: 90 3RF nitroglycerin [Nitrostat] 0.4 mg tablet, sublingual 0.4 mg Sublingual PRN PRN (Reason: chest pain) Qty: 2 3RF Disabled Parking permit See Rx Instructions .ROUTE .COMPLEX Qty: 1 0RF Rx Instructions: as directed acetaminophen 325 mg Tablet 650 mg PO Q6HR PRN (Reason: Fever/Mild Pain (1-3)) Qty: 60 0RF cholecalciferol (vitamin D3) 25 mcg (1,000 unit) Tablet 1,000 unit PO DAILY Qty: 30 0RF Referrals: Ike Castaneda, DO [Primary Care Provider] - Stand Alone Forms: Patient Portal/API
[2023-11-14 06:53] VITALS: BP 133/85; PULSE 85; RESP 16; TEMP 36.6; O2SAT 98
== END 2023-11-14 06:58 | disposition home or self-care (01) ==
PROVIDERS: Emergency Provider Emergency Medicine; PCP Family Medicine
DX: N40.1 Benign prostatic hyperplasia with lower urinary tract symptoms (principal); R33.8 Other retention of urine; T83.9XXA Unspecified complication of genitourinary prosthetic device, implant and graft, initial encounter
CPT/HCPCS: 51798; 99283